=== PATIENT | male | born 1995 | race Caucasian/White ===

== ENCOUNTER 2024-06-15 16:34 | Emergency (ER) | payer SELFPAY ==
--- NOTE | ~2024-06-15 | XR_ITS ---
CLINICAL HISTORY: painful AP pelvis, Two views of the left hip. COMPARISON: None FINDINGS: Pelvic ring appears intact. Pelvic phleboliths present. Visualized lower lumbar spine is unremarkable. Visualized portions of the contralateral right hip appear intact. Left hip: Decreased left hip joint space with remodeling of the left femoral head and near [id number] apposition along the superior margin of the acetabulum. Small osteophytes present along the femoral head. 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 Visualized portions of the proximal left femur appear intact. IMPRESSION: 1. Moderate to advanced left hip degenerative changes. 2. Morphological changes of the left femoral head consistent with Cam type femoroacetabular impingement. This document has been electronically signed by: David Canales MD on 06/15/2024 18:09:05
[2024-06-15 16:59] VITALS: BP 125/79; PULSE 102; RESP 18; TEMP 36.7; O2SAT 97; BMI 21.3
== END 2024-06-15 20:23 | disposition left against medical advice (07) ==
LOC: HO.ED 20:14
PROVIDERS: Emergency Provider Emergency Medicine
DX: M25.552 Pain in left hip (principal)
CPT/HCPCS: 73502; 99281

== ENCOUNTER → 2024-06-15 17:15 | Outpatient (BNV) | payer SELFPAY | PROVIDERS: Visit Provider Radiology Diagnostic Radiology | DX: M16.12 Unilateral primary osteoarthritis, left hip (principal) | CPT/HCPCS: 73502 ==

== ENCOUNTER 2024-10-11 14:28 | Inpatient (IN) | payer OTHER, SELFPAY ==
--- NOTE | ~2024-10-11 | CT_ITS ---
CLINICAL HISTORY: septic PE --- Additional Notes or Special Instructions: Pt has appeared to recover from ATN, Glomerulonephritis, CT angiography chest with contrast. 3D Postprocessing. Comparison: None provided Findings: Mild cardiomegaly. Trace pericardial effusion. Unremarkable thoracic aorta and great vessels. No aneurysm. No pulmonary emboli to the proximal segmental level. More distal branches are not adequately assessed due to motion artifact. Bilateral solid and cavitary nodules likely septic emboli. Small mediastinal and right hilar lymph nodes, likely reactive. Small bilateral pleural effusions. Hepatosplenomegaly. Chronic appearing anterior wedging of T6 and T7. Anasarca. IMPRESSION: 1. Bilateral solid and cavitary nodules, likely septic emboli 2. Small bilateral pleural effusions 3. Mild cardiomegaly with trace pericardial effusion 4. No pulmonary emboli identified to the proximal segmental level, with more distal branches limited by motion artifact This document has been electronically signed by: Zuhair [facility] MD on 10/13/2024 01:32:05
--- NOTE | ~2024-10-11 | CT_ITS ---
CLINICAL HISTORY: L hip sepsis, abd pain distension hepatomegaly CT abdomen and pelvis with contrast Comparison: None provided Findings: Nodules and cavitary lesions in the visualized lungs concerning for septic emboli. Small bilateral pleural effusions. Trace pericardial effusion. Hepatomegaly measuring 23.3 cm in the craniocaudal dimension. Splenomegaly measuring 19.9 cm in the craniocaudal dimension. Inferior splenic infarct. Symmetric hypoenhancement of the kidneys. No hydronephrosis. Gallbladder, pancreas, and adrenal glands are within normal limits. No bowel obstruction, pneumoperitoneum, or pneumatosis. Abdominopelvic ascites. Anasarca. Erosive changes in the left femoral head with small joint effusion. Appearance is consistent with septic arthritis and osteomyelitis. There is posterior subluxation of the left femoral head. IMPRESSION: 1. Multiple pulmonary nodules and cavitary lesions concerning for septic emboli 2. Left hip septic arthritis and osteomyelitis with posterior subluxation of femoral head 3. Hepatomegaly and splenomegaly with inferior splenic infarct 4. Small bilateral pleural effusions and trace pericardial effusion 5. Abdominopelvic ascites and anasarca This document has been electronically signed by: Zuhair [facility] MD on 10/13/2024 01:21:54
--- NOTE | ~2024-10-11 | CT_ITS ---
CLINICAL HISTORY: sepsis, TV vegetation CT head without contrast Comparison: None provided Findings: Loss of rubio-white matter differentiation in the left frontal lobe concerning for infarct from septic emboli, given the history. No intracranial hemorrhage, midline shift or downward herniation. The visualized paranasal sinuses and mastoid air cells are normal. The orbits are within normal limits. No skull fracture. IMPRESSION: Loss of rubio-white matter differentiation in the left frontal lobe concerning for infarct from septic emboli, given the history. This document has been electronically signed by: Zuhair [facility] MD on 10/13/2024 01:17:18
--- NOTE | ~2024-10-11 | XR_ITS ---
CLINICAL HISTORY: weakness 1 view chest x-ray Comparison: None provided Findings: Few small patchy opacities in the peripheral right lung, possibly atelectasis or pneumonia. No large effusion or pneumothorax. Right IJ central venous catheter tip is in the right atrium. No acute fracture. IMPRESSION: Few small patchy opacities in the peripheral right lung, possibly atelectasis or pneumonia. This document has been electronically signed by: Zuhair [facility] MD on 10/11/2024 18:09:04
--- NOTE | ~2024-10-11 | IR_ITS ---
CLINICAL HISTORY: Comfort measures only and requiring medication administration PROCEDURES: 1. Real-time ultrasound-guided access into the left basilic vein after documentation of selected vessel patency, and permanent imaging storing in the patient record. 2. Placement of a 4 fr 42 cm, single lumen power PICC CLINICIANS: Tereso Tavarez NP MEDICATIONS: -Lidocaine 1% 5 mL SQ. -Antibiotics: None. Complications: None. Estimated blood loss: <5 ml Specimens: None. Contrast: None. Fluoroscopy time: 0.8 min Procedure note: The procedure, risks, benefits, and alternatives were carefully explained to the patient and written informed consent was obtained. The patient was placed supine on the fluoroscopy table. A timeout was performed. The left arm was prepped and draped in usual sterile fashion. Using ultrasound and fluoroscopic guidance, venous access was achieved into the basilic vein with a micropuncture set. A peel-away sheath was advanced over the wire. The 0.018 inch wire was advanced into the right atrium. A 4 fr, 42 cm, single lumen power PICC was advanced over the wire, with its tip in the the cavoatrial junction. The wire was removed. The catheter was tested and secured with a StatLock dressing. A permanent ultrasound image and chest fluoroscopic image was saved to PACS. The patient was stable after the procedure and was transferred to the floor. FINDINGS: 1. Patent left basilic vein 2. Placement of a 4 fr 42 cm, single lumen power PICC IR/IR cvc insert peripheral IMPRESSION: Placement of a 4 fr 42 cm, single lumen power PICC PLAN: -The catheter may be used immediately. This procedure was performed by Tereso Tavarez NP, and directly supervised by Idalia Styles MD. Electronically signed by: Abdirahman Styles MD 10/24/2024 05:51 PM EDT
--- NOTE | ~2024-10-11 | IR_ITS ---
CLINICAL HISTORY: Question of central line associated bloodstream infection PROCEDURES: Removal of right chest hemodialysis catheter. Clinician: Tereso Tavarez NP MEDICATIONS: -Lidocaine 1% 10 mL SQ. -Antibiotics: Not indicated -For additional details, please see nursing flowsheet. COMPLICATIONS: None. ESTIMATED PROCEDURAL BLOOD LOSS: <5 ml SPECIMENS: Catheter tip sent for culture. Additional blood draw performed from catheter. PROCEDURE NOTE: The procedure, risks, benefits, and alternatives were carefully explained to patient, and informed consent was obtained. The patient was placed supine . A timeout was performed. The right neck and chest was prepped and draped in usual sterile fashion. Local anesthesia was administered to the site with lidocaine. Using blunt dissection, the catheter cuff was freed and the catheter was removed. Manual pressure was held for 5 minutes and hemostasis was achieved. A sterile dressing was applied. There were no immediate complications and the patient tolerated the procedure well. FINDINGS: Right chest hemodialysis catheter intact. IR/IR cvc remov tunnel wo prt/landfill gas technician IMPRESSION: Successful removal of right chest tunneled hemodialysis catheter. PLAN: If replacement is desired, contact interventional radiology. This procedure was performed by Tereso Tavarez NP, and directly supervised by Leroy Duenas M.D.. Electronically signed by: Leroy Duenas MD 10/15/2024 09:09 AM EDT Workstation: [id number]
[2024-10-11 14:52] VITALS: BP 109/73; PULSE 141; PULSE 148; RESP 22; TEMP 36.8; O2SAT 97; BMI 24.3
[2024-10-11 15:39] VITALS: BP 109/73; PULSE 141; RESP 22; TEMP 36.8; O2SAT 97
--- NOTE | 2024-10-11 15:45 | ECG_ITS ---
Test Reason : EVAL Blood Pressure : */* mmHG Vent. Rate : 123 BPM Atrial Rate : 123 BPM P-R Int : 152 ms QRS Dur : 102 ms QT Int : 312 ms P-R-T Axes : 58 108 8 degrees QTcB Int : 446 ms Sinus tachycardia Rightward axis Borderline ECG No previous ECGs available Referred By: Finn Olsen Electronically Signed By: Jigar Clay
[2024-10-11 16:36] LABS: Hematocrit 23.5 % (42.0-52.0); Hemoglobin 7.6 g/dl (14.0-18.0); Mean Corpuscular HGB Conc 32.3 g/dl (31.0-36.0); Mean Corpuscular Hemoglobin 26.2 pg (27.0-33.0); Mean Corpuscular Volume 81.0 fL (80.0-98.0); NRBC Abs Auto 0.000 X10*3/uL (0.0-0.012); NRBC Pct Auto 0.0 /100WBC (0.0-0.2); Red Blood Count 2.90 X10*6/uL (4.60-5.80); White Blood Count 5.8 X10*3/uL (4.8-10.8)
--- NOTE | 2024-10-11 16:41 | ED_ITS ---
HPI - General Adult General Chief complaint: Psychiatric Symptoms Stated complaint: SEC 12 ?FAILURE TO THRIVE, REFUSING DIALYSIS Time Seen by Provider: 10/11/24 15:45 Source: patient, RN notes reviewed and old records reviewed Mode of arrival: EMS Limitations: no limitations History of Present Illness ED Provider: Raúl HPI narrative: 29-year-old male with past medical history significant for end-stage renal disease on dialysis who reports no previous past medical history up until 1 month ago when he was admitted at [facility] presenting for evaluation of ?I do not want dialysis. ? The patient was placed on a section 12 by Anastacia Boggs, nurse practitioner due to refusal of dialysis treatments, emaciation, not perform ADLs and suspected substance abuse EMS reported that the patient had expressed some passive suicidal ideation stating that he wanted to skipped dialysis until it kills him. At the time of my evaluation the patient denies all this He does state that he has not thrilled with continuing dialysis but is not suicidal. He reports he has not been to dialysis since last week The patient offers no complaints Denies any fevers, chills, chest pain, cough, shortness of breath, abdominal pain, nausea vomiting Related Data Home Medications ?Medication ?Instructions ?Recorded ?Confirmed acetaminophen 325 mg tablet 325 mg PO Q8H PRN Pain 10/11/24 cyclobenzaprine 10 mg tablet 10 mg PO BEDTIME PRN Musc le Spasm 10/11/24 10/11/24 gabapentin 300 mg capsule 300 mg PO BEDTIME PRN Pain 0 10/11/24 10/11/24 Allergies Allergy/AdvReac Type Severity Reaction Status Date / Time amoxicillin Allergy Unknown Verified 10/11/24 14:54 infliximab (From Remicade) Allergy Hives Verified 10/11/24 14:54 methotrexate Allergy Unknown Verified 10/11/24 14:54 Penicillins (PCN) Allergy Unknown Verified 10/11/24 14:54 Review of Systems 2 Constitutional: Constitutional: Denies chills, Denies fatigue and Denies fever(s) Eyes: Eyes: Denies blurry vision ENT: Denies vertigo, Denies dizziness and Denies dry mouth Cardiovascular: Cardiovascular: Denies chest pain and Denies dyspnea on exertion Respiratory: Respiratory: Denies cough and Denies dyspnea on exertion Gastrointestinal: Gastrointestinal: Denies abdominal pain, Denies nausea and Denies vomiting Musculoskeletal: Musculoskeletal: Denies back pain Integumentary/Breasts: Skin/Breast: Denies rash Neurologic: Denies vertigo and Denies dizziness Psychiatric: Psychiatric: Denies anxiety and Denies suicidal ideation Endocrine: Endocrine: Denies fatigue PMFSH Past Medical History Medical History Abscess of male pelvis Portal hypertension Cirrhosis of liver Splenomegaly TIMMY (acute kidney injury) Hyperkalemia GI bleed Thrombocytopenia History of intravenous drug abuse Tachycardia Hyponatremia Juvenile rheumatoid arthritis Hepatitis C antibody positive Pneumonia MSSA (methicillin susceptible Staphylococcus aureus) Methadone maintenance therapy patient Substance use disorder Effusion, left hip Septic pulmonary embolism Severe tricuspid regurgitation Tricuspid valve vegetation Social History Social History Unable to assess alcohol history related to: Refusing to respond Smoked in Last 30 Days: No Use of substances other than those prescribed or required for medical reasons: Refusing to respond Advance Directives: No Advance Directives Information Provided: Yes Do you have a plan to hurt others: No Plan Physical Exam ED Vital Signs: Vital Signs - 24 hr 10/11/24 14:52 10/11/24 15:39 Temperature 98.3 F 98.3 F Pulse Rate 141 H 141 H Respiratory Rate 22 H 22 H Blood Pressure 109/73 109/73 Pulse Oximetry 97 97 Oxygen Delivery Method Room Air Room Air BMI result Body Mass Index 24.3 Const General: no acute distress, alert and awake Nutritional Appearance: well nourished and cachectic Orientation/consciousness: patient oriented x3 HENMT Head: Yes normocephalic and Yes atraumatic Eyes Eyelids: Yes eyelids normal Conjunctivae: conjunctivae normal Sclerae: sclerae normal Corneas: corneas normal Pupils: Equal, round and reactive pupils present EOM: EOMs intact bilaterally Neck Neck: Yes full ROM Resp Effort & Inspection: normal respiratory effort, able to speak in complete sentences and not labored Cardio Rate: regular rate Rhythm: regular rhythm GI Palpation (GI): Soft to palpation, not firm, nontender, no guarding and not rigid Skin General skin exam: elasticity normal Neuro General: patient oriented x3 Cranial nerves: Yes CN's II-XII intact bilaterally, Yes Equal, round and reactive pupils present and Yes Bilaterally intact EOM present Cognition (Neuro): normal cognition Extrem Other: Moving all extremities well without any obvious deformities Psych Appearance: disheveled Speech and movement: No Slurred speech present or Slowed speech present (Psych) Affect: Indifferent affect present Attitude: cooperative Thought process: Normal thought process present Thought content: suicidality Insight: Limited insight present (Psych) Course Reevaluation(s) Reevaluation #1: Received a call from the lab, the patient has 18% neutrophils with toxic vacuolization, blood bodies. He is findings could be concerning for infection/sepsis. The patient was covered in stool on arrival. I have not yet found a source of infection. His chest x-ray shows questionable pneumonia, but the patient is not coughing, he is afebrile. I do not feel this is the source. It is possible with the patient has a line infection and his hemodialysis catheter and therefore we will treat with vancomycin and ceftriaxone. Time: 18:26 Reevaluation #2: I was able to get records from [facility]. The patient had an extremely complicated admission starting on 06/24/24 and discharged on 09/14/2024. He ultimately was undergoing IV drug abuse and had MSSA bacteremia, septic pulmonary embolism, left hip septic arthritis with the extension in the pelvis and surrounding soft tissue with intramuscular abscesses. 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 He did undergo a left hip washout with I and D on 06/24/2024. He completed 6 weeks of Ancef and then ultimately decline any further surgical intervention. The patient is adamant that he has not used IV drugs since his discharge. I asked him why he was not truthful on presentation and he did not have an answer. At this time, because of the patient being placed on a section 12, I do not feel that he is medically cleared for a care team evaluation, we will discuss with the hospitalist for further evaluation of sepsis. He was given broad-spectrum antibiotics, IV fluids Time: 18:51 Medications Administered Discontinued Medications Generic Name Dose Route Start Last Admin Trade Name Freq PRN Reason Stop Dose Admin Ceftriaxone Sodium 1 gm 10/11/24 18:22 10/11/24 20:28 Ceftriaxone Sodium 1 Gm Vial IVPUSH 10/11/24 18:23 1 gm ONCE ONE Administration Sodium Chloride 1,000 mls @ 999 mls/hr 10/11/24 18:30 10/11/24 21:25 Ns IV 10/11/24 19:30 999 mls/hr .Q1H1M SARAH Infusion Sodium Chloride 1,000 mls @ 999 mls/hr 10/11/24 18:30 10/11/24 21:25 Ns IV 10/11/24 19:30 999 mls/hr .Q1H1M SARAH Infusion Vancomycin HCl 1,000 mg/ 535 mls @ 267.5 mls/hr 10/11/24 19:00 10/11/24 20:28 Vancomycin HCl 750 mg/ Sodium IV 10/11/24 20:59 267.5 mls/hr Chloride ONCE ONE Administration Lactated Ringer's 1,000 mls @ 100 mls/hr 10/11/24 19:15 10/11/24 21:24 Lr IVCONT Infused .Q10H SARAH Infusion Morphine Sulfate 4 mg 10/11/24 18:23 10/11/24 19:16 Morphine Sulfate 4 Mg/Ml Cartridge IVPUSH 10/11/24 18:24 4 mg ONCE ONE Administration Protocol Ondansetron HCl 4 mg 10/11/24 18:23 10/11/24 19:16 Ondansetron Hcl 4 Mg/2 Ml Vial IVPUSH 10/11/24 18:24 4 mg ONCE ONE Administration Procedures Procedure Narrative Procedure Narrative: I performed a bedside limited transthoracic echo on this patient see report below otherwise I was not involved in the patient's care. I did endorse the findings to the covering inpatient hospitalist team. EMERGENCY ULTRASOUND INTERPRETATION-Limited Echocardiography [This study was ordered, performed, and interpreted by myself. The study reveals: Impression: NORMAL LV FUNCTION, positive RV dilation and dysfunction, moderate pericardial effusion no tamponade [Emergent Cardiac for Indication: Views Used: PLAX, PSSA, A4, SX, IVC Pericardial Effusion/Tamponade Findings: Moderate pericardial effusion, no tamponade RV Dilation (> LV diam in 4ch apical): Present, also visible tricuspid regurgitation and tricuspid vegetation Global LV Fxn: NORMAL IVC Dilation and Resp Variation: Dilated Performed by: MD Freddy Images were stored __ Ervin Hayes MD Medical Decision Making Medical Decision Making MDM Narrative: 29-year-old male presents for evaluation of a crisis evaluation. He denies suicidal ideation to me. He does admit that he is not throat with dialysis. I am concerned that he is unable to explain to me why he was on dialysis. He does report a recent admission to [facility] but denies any previous medical history. He denies substance abuse active or previous. Denies any history of hepatitis or HIV. He offers no complaints. We will attempt to get records from [facility] that will hopefully she had more light on the patient's presentation. I received a call from the lab with the patient has 18% bandemia and at the moment I have no clear source. He does also have dull bodies, toxic vacuolization. He denies any fevers, chills, cough, shortness of breath, abdominal pain, nausea vomiting. He does reports some mild diarrhea. Denies IV drug abuse. Differential Diagnosis Differential Diagnoses: The differential diagnosis associated with the presentation includes Hyperkalemia Renal failure Arrhythmia Dehydration Anemia Substance abuse Sepsis Admission/Observation Consideration of admission/observation: Escalation of care including admission/observation considered Lab Data MDM Lab Attestation statement: I reviewed the patient's lab results. The patient has no leukocytosis. He does have a significant anemia with a hemoglobin is 7.6 and a hematocrit of 23.5. Unclear chronicity as we have no previous labs. [place] [address]. He denies any black or bloody stool but declines a rectal examination adamantly. The chemistries the patient is noted to have a hyponatremia of 126. His BMI is elevated to 55 with a normal creatinine of 1.4. 10/11/24 16:30 10/11/24 16:30 Labs: Lab Results 10/11/24 10/11/24 Range/Units 16:30 16:58 WBC 5.8 (4.8-10.8) X10*3/uL RBC 2.90 L (4.60-5.80) X10*6/uL Hgb 7.6 L (14.0-18.0) g/dl Hct 23.5 L (42.0-52.0) % MCV 81.0 (80.0-98.0) fL MCH 26.2 L (27.0-33.0) pg MCHC 32.3 (31.0-36.0) g/dl RDW 19.3 H (11.0-16.0) % Plt Count 62 L (160-400) X10*3/uL MPV 11.1 (9.4-12.4) fL Immature Gran % (Auto) Cancelled Neut % (Auto) Cancelled Lymph % (Auto) Cancelled Glenn % (Auto) Cancelled Eos % (Auto) Cancelled Baso % (Auto) Cancelled Lymph # (Auto) Cancelled Glenn # (Auto) Cancelled Eos # (Auto) Cancelled Baso # (Auto) Cancelled Abs Immat Gran (auto) Cancelled Absolute Neuts (auto) Cancelled Absolute Nucleated RBC 0.000 (0.0-0.012) X10*3/uL Nucleated RBC % (auto) 0.0 (0.0-0.2) /100WBC Neutrophils % (Manual) 75 H (45-73) % Band Neutrophils % 18 H (3-5) % Lymphocytes % (Manual) 4 L (20-40) % Monocytes % (Manual) 2 (2-11) % Metamyelocytes % 1 % Abs Neuts (Manual) 5.4 (2.0-8.3) X10*3/uL Lymphocytes # (Manual) 0.2 L (1.2-4.9) X10*3/uL Monocytes # (Manual) 0.1 (0.1-1.2) X10*3/uL Metamyelocytes # 0.1 X10*3/uL Toxic Vacuolation PRESENT Dohle Bodies PRESENT Platelet Estimate DECREASED (NORMAL) Large Platelets PRESENT Plt Morphology Comment NOTED RBC Morphology NOTED Polychromasia 1+ (0-2) /OIF Tear Drop Cells 1+ (0-2) /OIF Ovalocytes 1+ (5-14) /OIF Tyson Cells 1+ (0-2) /OIF Sodium 126 L (135-145) mmol/L Potassium 4.0 (3.3-5.1) mmol/L Chloride 101 (96-108) mmol/L Carbon Dioxide 13 L (22-29) mmol/L Anion Gap 16 (12-20) BUN 55 H (9-16) mg/dL Creatinine 1.24 (0.5-1.4) mg/dL Estim Creat Clear Calc 85.8 Estimated GFR > 60 Random Glucose 95 (60-115) mg/dL Calcium 8.1 L (8.4-10.2) mg/dL Magnesium 1.4 L* (1.6-2.6) mg/dL Total Bilirubin 0.9 (0.0-1.0) mg/dL AST 38 H (5-37) U/L ALT 7 (0-40) U/L Alkaline Phosphatase 102 (39-117) U/L C-Reactive Protein 19.23 H (< or = 0.50) mg/dL Total Protein 6.5 (6.5-8.0) g/dL Albumin 2.8 L (3.5-5.0) g/dL TSH 0.87 (0.32-4.0) uIU/mL Free T4 1.00 (0.71-1.85) ng/dL Salicylates < 5.0 L (15-30) mg/dL Acetaminophen < 3 (<30) mcg/mL Discharge Plan Discharge Clinical Impression: Depression, Noncompliance, Anemia Sepsis Qualifiers: Sepsis type: sepsis due to unspecified organism Sepsis acute organ dysfunction status: unspecified Qualified Code(s): A41.9 - Sepsis, unspecified organism Patient Disposition: Admitted As Inpatient Interventions: [place]-Suicide Risk Severity Scale Last Done: 10/11/24 15:39 Admission Worksheet (ED) Last Done: 10/11/24 20:48 Discharge Date/Time: 10/11/24 21:33
[2024-10-11 16:50] LABS: Alanine Aminotransferase 7 U/L (0-40); Albumin Level 2.8 g/dL (3.5-5.0); Alkaline Phosphatase 102 U/L (39-117); Anion Gap 16 (12-20); Aspartate Amino Transferase 38 U/L (5-37); Blood Urea Nitrogen 55 mg/dL (9-16); Calcium 8.1 mg/dL (8.4-10.2); Carbon Dioxide 13 mmol/L (22-29); Chloride 101 mmol/L (96-108); Creatinine Clr Calc Pharmacy 85.8; Estimated Glomerular Filt Rate > 60; Potassium 4.0 mmol/L (3.3-5.1); Sodium 126 mmol/L (135-145); Total Protein 6.5 g/dL (6.5-8.0)
[2024-10-11 17:07] LABS: Platelet Count 62 X10*3/uL (160-400)
--- NOTE | 2024-10-11 17:20 | MHC.EDTECH ---
delay on EKG do to EKG machine being used. Nurse aware.
[2024-10-11 17:25] LABS: Acetaminophen LAB < 3 mcg/mL (<30); Salicylate < 5.0 mg/dL (15-30)
[2024-10-11 17:37] LABS: Neutrophils Percent Manual 75 % (45-73)
[2024-10-11 17:39] LABS: Band Neutrophils Percent 18 % (3-5); Lymphocytes Absolute Manual 0.2 X10*3/uL (1.2-4.9); Lymphocytes Percent Manual 4 % (20-40); Metamyelocytes Absolute 0.1 X10*3/uL; Metamyelocytes Percent 1 %; Monocytes Absolute Manual 0.1 X10*3/uL (0.1-1.2); Monocytes Percent Manual 2 % (2-11); Neutrophils Absolute Manual 5.4 X10*3/uL (2.0-8.3)
[2024-10-11 17:40] LABS: Ovalocytes 1+ (5-14) /OIF; Polychromasia 1+ (0-2) /OIF; RBC Morphology NOTED; Tear Drop Cells 1+ (0-2) /OIF
[2024-10-11 17:41] LABS: Burr Cells 1+ (0-2) /OIF; Large Platelet PRESENT
[2024-10-11 17:44] LABS: Dohle Bodies PRESENT; Toxic Vacuolation PRESENT
--- NOTE | 2024-10-11 17:48 | MHC.CARE ---
[facility] Clinician Kandy Rodrigues called and stated she evaluated patient and the disposition determined to be inpatient psychiatric treatment. Will send the assessment when finished.
--- NOTE | 2024-10-11 18:03 | MHC.EDTECH ---
Pt is refusing lab work. RN made awre of pt refusal
--- NOTE | 2024-10-11 19:19 | PM.IMHP ---
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 On arrival to the emergency department patient was denying suicidal ideations. Patient did not provide any medical history so records from [facility] were obtained regarding recent admission from June of 2024 through 09/14/2024 for the above multiple medical problems. Patient placed on section 12 with continuous observation. Patient presented covered in dried feces and dirt. PermCath in right upper chest is covered with a soiled dressing. Bedside echo was being performed so this credit underwriter was unable to look at the insertion site. Staff were attempting to get blood cultures but this has been very difficult due to patient's poor vascular access. Patient does have 1 IV in the left hand. Patient was started on vanco and ceftriaxone for antibiotics in the emergency department. Patient is also on lactated Ringer's 100 mL/hour after receiving fluid resuscitation per sepsis protocol. Bedside echo done by ED provider notes severe tricuspid valve regurgitation with a tricuspid valve vegetation any moderate pericardial effusion. There is also dilation of the right ventricle. There does not appear to be signs of tamponade. The liver is grossly enlarged. Patient would only provide for HPI that [facility] called 911 and had him transported here to [facility]. Again patient denies suicidal ideations. Patient states he is no longer able to ambulate and has absolutely no strength. Patient was dealing with septic left hip joint with osteomyelitis and underwent aspiration of effusion while at [facility] this past admission. Patient refused any surgical intervention at that time. Patient states he goes to dialysis maybe once a week but reported to the ED provider that he goes to dialysis on Wednesdays and Fridays. Patient can not recall when he last had dialysis. Sodium on admission 126, potassium 4.0, CO2 13, anion gap 16, creatinine 1.24, creatinine clearance 85.8 with a GFR greater than 60. Patient does make urine and is not anuric or oliguric. AST 38, ALT 7 alk-phos 102. Total bilirubin 0.9. Patient does not have leukocytosis but is anemic with an H and H of 7.6 and 23.5. Patient's platelets are 62,000. Patient has a evidence left shift with bandemia 18. This case was reviewed with hospitalist attending Dr. Jensen to ensure transfers not indicated based on patient's level of care. Patient is appropriate for admission at this time based on review. Patient is currently hemodynamically stable mildly encephalopathic and ED provider will attempt peripheral access for blood cultures. Review of Systems Review of Systems: Patient answered no to chest pain, shortness of breath at rest, abdominal pain. Patient did confirm that he is not able to walk and is very weak. Yes Unobtainable due to mental status [facility] Medical History Abscess of male pelvis Portal hypertension Cirrhosis of liver Splenomegaly TIMMY (acute kidney injury) Hyperkalemia GI bleed Thrombocytopenia History of intravenous drug abuse Tachycardia Hyponatremia Juvenile rheumatoid arthritis Hepatitis C antibody positive Pneumonia MSSA (methicillin susceptible Staphylococcus aureus) Methadone maintenance therapy patient Substance use disorder Effusion, left hip Septic pulmonary embolism Severe tricuspid regurgitation Tricuspid valve vegetation Cognitive capacity: Alert to self only Functional capacity: bed bound Social History Household Members: None and Unknown / Unable to assess Housing: Unknown / Unable to assess Unable to assess alcohol history related to: Refusing to respond Patient Tobacco Use Status: Current someday Tobacco user Tobacco use type: Cigarette e-Cigarette/Vaping Use: Currently Using Second Hand Smoke Exposure: No Ebola Risk: Travel/Contact With Anyone From Affected Area/s: No Has Patient Experienced Ebola Symptoms: No Meds Allergies Allergy/AdvReac Type Severity Reaction Status Date / Time amoxicillin Allergy Unknown Verified 10/11/24 14:54 infliximab (From Remicade) Allergy Hives Verified 10/11/24 14:54 methotrexate Allergy Unknown Verified 10/11/24 14:54 Penicillins (PCN) Allergy Unknown Verified 10/11/24 14:54 Active Medications: Current Medications Acetaminophen (Acetaminophen 325 Mg Tablet) 650 mg PO Q6H PRN PRN Reason: Pain, Mild 1-3,fever,headache Albuterol/Ipratropium (Albuterol/Iprat 2.5/0.5mg 3 Ml Ampul.Neb) 3 ml INHALE Q4H PRN PRN Reason: Shortness of Breath/Wheezing Calcium Carbonate (Calcium Carbonate 750 Mg Tab.Chew) 750 mg PO Q4H PRN PRN Reason: Heartburn Enoxaparin Sodium (Enoxaparin Sodium 40 Mg/0.4 Ml Syringe) 40 mg SUBCUT Q24H [facility] Sodium Chloride (Ns) 1,000 mls @ 999 mls/hr IV .Q1H1M [facility] Stop: 10/11/24 19:30 Last Admin: 10/11/24 19:17 Dose: 999 mls/hr Sodium Chloride (Ns) 1,000 mls @ 999 mls/hr IV .Q1H1M [facility] Stop: 10/11/24 19:30 Last Admin: 10/11/24 19:17 Dose: 999 mls/hr Vancomycin HCl 1,000 mg/Vancomycin HCl 750 mg/ Sodium Chloride 535 mls @ 267.5 mls/hr IV ONCE ONE Stop: 10/11/24 20:59 Last Admin: 10/11/24 19:17 Dose: 267.5 mls/hr Lactated Ringer's (Lr) 1,000 mls @ 100 mls/hr IVCONT .Q10H [facility] Magnesium Hydroxide (Milk Of Magnesia 30 Ml Oral.Susp) 30 ml PO DAILY PRN PRN Reason: Constipation Melatonin (Melatonin 3 Mg Tablet) 6 mg PO BEDTIME PRN PRN Reason: Insomnia Ondansetron HCl (Ondansetron Hcl 4 Mg/2 Ml Vial) 4 mg IVPUSH Q8H PRN PRN Reason: Nausea and Vomiting Sodium Chloride (0.9 % Sodium Chloride Flush 3 Ml Syringe) 3 ml IVFLUSH QSHIFT [facility] Home Medications ?Medication ?Instructions ?Recorded ?Confirmed ?Last Taken ?Type acetaminophen 325 mg tablet 325 mg PO Q8H PRN Pain 07/24/25 07/24/25 Unknown History cyclobenzaprine 10 mg tablet 10 mg PO BEDTIME PRN Muscle Spasm 10/11/24 10/11/24 Unknown History gabapentin 300 mg capsule 300 mg PO BEDTIME PRN Pain 10/11/24 10/11/24 Unknown History Physical Exam Vital Signs and Narrative: Vital Signs: Last Vital Signs Temp 98.3 F 10/11/24 15:39 Pulse 141 H 10/11/24 15:39 Resp 22 H 10/11/24 15:39 BP 109/73 10/11/24 15:39 Pulse Ox 97 10/11/24 15:39 O2 Del Method Room Air 10/11/24 15:39 BMI result Body Mass Index 24.3 Alert to self only, unable to give good history. Neuro: Patient unable to follow commands for neuro exam, hiccups noted EYES: PERRLA, sclerae nonicteric, conjunctiva pale ENT: hearing intact, mucosa moist, no goiter noted, no obvious lymphadenopathy Cardiac: S1 S2 RRR tachycardic, holistic murmur, no JVD, no edema in Lower ext Pulmonary: lungs diminished bilaterally Abdominal: BS hypoactive throughout, nontender, no guarding or rebound tenderness noted, hepatomegaly present MSK: strength 1/5 upper and lower extremities, muscle atrophy noted, flaccidity noted : no CVA tenderness no bladder distension Extremities: no edema in lower extremities, PT and DP pulses palpable +2 Psych: mood flat, judgement and insight poor Skin: Pale, Covered in dried feces and dirt, PermCath dressing soiled, unable to check insertion site as echo at the bedside was being performed, we will update note when patient is seen for review. Track kim noted on left arm, suspect active IV drug use Results Labs 10/11/24 16:30 10/11/24 16:30 Labs: Laboratory Results - last 24 hr 10/11/24 10/11/24 16:30 16:58 MCV 81.0 MCH 26.2 L MCHC 32.3 RDW 19.3 H Plt Count 62 L MPV 11.1 Immature Gran % (Auto) Cancelled Neut % (Auto) Cancelled Lymph % (Auto) Cancelled [place] % (Auto) Cancelled Eos % (Auto) Cancelled Baso % (Auto) Cancelled Lymph # (Auto) Cancelled [place] # (Auto) Cancelled Eos # (Auto) Cancelled Baso # (Auto) Cancelled Abs Immat Gran (auto) Cancelled Absolute Neuts (auto) Cancelled Absolute Nucleated RBC 0.000 Nucleated RBC % (auto) 0.0 Neutrophils % (Manual) 75 H Band Neutrophils % 18 H Lymphocytes % (Manual) 4 L Monocytes % (Manual) 2 Metamyelocytes % 1 Abs Neuts (Manual) 5.4 Lymphocytes # (Manual) 0.2 L Monocytes # (Manual) 0.1 Metamyelocytes # 0.1 Toxic Vacuolation PRESENT Dohle Bodies PRESENT Platelet Estimate DECREASED Large Platelets PRESENT Plt Morphology Comment NOTED RBC Morphology NOTED Polychromasia 1+ (0-2) Tear Drop Cells 1+ (0-2) Ovalocytes 1+ (5-14) Jones Cells 1+ (0-2) Anion Gap 16 Estim Creat Clear Calc 85.8 Estimated GFR > 60 Random Glucose 95 Calcium 8.1 L Total Bilirubin 0.9 AST 38 H ALT 7 Alkaline Phosphatase 102 Total Protein 6.5 Albumin 2.8 L Salicylates < 5.0 L Acetaminophen < 3 ECG Attestation: I personally reviewed and interpreted this ECG as follows: (Sinus tachycardia Rightward axis, Qtc 446) Prior ECG tracings: available for review Imaging Radiologist's Impressions: CXR IMPRESSION: Few small patchy opacities in the peripheral right lung, possibly atelectasis or pneumonia. CT ABD PELVIS and CTA pending Assessment and Plan (1) Sepsis: Qualifiers: Sepsis acute organ dysfunction status: unspecified Sepsis type: sepsis due to unspecified organism Qualified Code(s): A41.9 - Sepsis, unspecified organism Status: Acute Plan Patient is a 29-year-old male with significant past medical history to include recent hospitalization at [facility] with discharge 09/14/2024 after 2 months of hospital stay diagnosed with sepsis, pyogenic arthritis of left hip, hyponatremia, tachycardia, left hip joint effusion, bilateral cavitary pulmonary embolism, thrombocytopenia, acute hypoxic respiratory failure, multifocal pneumonia, GI bleed secondary to portal hypertenisve gastropathy, hepatitis-C untreated, 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 Patient being admitted for multiple medical problems. Please note discharge summary from [facility] dated 09/14/2024 is available in patient's medical record. Sepsis/ pneumonia/ possible infected PermCath (tunnelled) used for dialysis/ recent septic pulmonary embolism/ recent septic arthritis left hip/ tricuspid valve endocarditis with vegetation/ MSSA Vancomycin and ceftriaxone started in the ED, changed to Vanco and cefepime noting recent hospitalization, unable to do Zosyn due to allergy to penicillin BCX2 pending Wound culture obtained from insertion site of PermCath Active track kim left arm, suspect active IV drug use LA 1.4, afebrile CRP 19.23, was 9.8 on discharge 09/14/2024 from [facility] and ESR pending Sepsis protocol followed for Fluid Resuscitation ID consult ordered UA pending O2 as needed CT Chest and CT abd pelvis pending Bedside echo confirms tricuspid valve vegetation, official echo ordered Telemetry and continuous pulse oximetry Pneumonia Pt is on vanco and cefepime O2 prn DUo nebs prn Aspiration precautions ordered Speech therapy eval ordered, due to level of weakness patient is at risk for aspiration UTI UA positive, follow urine culture Pt on cefepime Bladder scan QS Recommend periwick Hyponatremia NA 126 0.9 NS initated, conservative rate Urine studies ordered, serum osmo Trend NA, next at 2300 NV checks ordered Endocarditis of tricuspid valve, vegetation and moderate to severe tricuspid regurgitation present via bedside echo in ED Official echo ordered Cardiology consulted Antibiotics initiated ID consultation Septic PE Secondary to TV Endocarditis recently diagnosed, was not discharged on AC CTA pending Pt cannot initiate AC if needed due to low platelet count Septic Arthritis of Left Hip (past admission [facility]) ABD/Pelvis CT pending Pt refused surgical intervention at [facility] Contributing to patient's overall decreased mobility and weakness Encephalopathy. toxic metabolic issues related to infection and positive toxicology scree CT of the head ordered Will check ammonia level Toxicology screen positive for fentanyl, opiods, methadone, cocaine CKD on Dialysis/ possible infected PermCath/ recent TIMMY secondary to ATN Nephrology consulted Report of dialysis M,W,F - pt stated he stopped going to [place], unknown when last tx was Renal function stable UA positive for UTI, negative for proteinuria, on cefepime BC X2 pending, concern perm cath may be infected, culture ordered from insertion site Perm Cath Care ordered - tunneled catheter, cannot be removed at bedside if needed Avoid nephrotoxic medications Avoid hypotension Strict I's and O's Q shift Anemia secondary to end-stage renal disease H/H 7.6 23.5, no current indication for transfusion Stool for occult Epogen per Nephrology Iron panel and B12 ordered Recent multiple transfusions at [facility] for portal hypertensive gastropathy Protonix IV BID Thrombocytopenia Likely secondary to liver cirrhosis Splenomegaly noted 62K, hold Lovenox No evidence of spontaneous bleeding Hepatitis-C with liver cirrhosis/ portal hypertension Patient did not complete treatment in the past Will check RNA levels Follow CMP Substance Use Disorder Methadone 60 mgs TID COWS ordered noting positive Toxicology screen opiods, fentanyl, cocaine Addictions consulted Suicide ideation Patient currently on section 12 can not leave AMA Psychiatric consult ordered Continuous observation ordered DVT prophylaxis: Contraindicated due to low platelet count of 62,000 PPI prophylaxis noting sepsis diagnosis: Protonix 40 IV b.i.d. Med rec completed Full Code status Quality Stroke Does the patient have a stroke diagnosis?: No Reason for No Anti-thrombotic by Day Two: Contraindicated (low platelet count ) VTE Prior VTE?: No VTE Risk Level:: Medical - moderate - high VTE Device Contraindication: N/A - Device Ordered VTE Drug Contraindication: N/A - Med Ordered
--- NOTE | 2024-10-11 19:28 | PC.NURSE ---
this RN assume dcare of pt, medicated per MAY, L forearm IV infiltrated with fluid administration. Asked Danilo SONNY for assistance with Ultra sound guided IV. awaiting new IV access.
--- NOTE | 2024-10-11 19:35 | PC.NURSE ---
unable to administer antibiotics due to infiltration of IV line, hospitalist at bedside.
--- NOTE | 2024-10-11 20:18 | PC.NURSE ---
yo rn at bedside attempting us guided iv
[2024-10-11] MEDS: vancomycin HCL 1,000 MG, vancomycin HCL 750 MG in 0.9 % Sodium Chloride 500 ML 267.5 MG IV (20:28)
[2024-10-11] MEDS: Lactated Ringers 1,000 ML 100 ML IVCONT (20:29)
--- NOTE | 2024-10-11 20:31 | PC.NURSE ---
20g us guided iv placed in right upper arm at this time. pt medciated per may.
--- NOTE | 2024-10-11 20:37 | PHA.MEDREC ---
Addendum entered by Koki North RPh 10/11/24 20:46: MED REC REVIEWED BY [facility] Original Note: Pharmacy Consult ? Medication Reconciliation Pharmacy has completed the medication reconciliation. Spoke with pt and he confirmed he is only taking Acetaminophen 325mg 1 tab prn for pain, Cyclobenzaprine 10mg 1 tab at bedtime and Gabapentin 300mg tabs 1 at bedtime as needed.
--- NOTE | 2024-10-11 21:01 | PC.NURSE ---
attempted to place tele leads on pt, pt refusing at this time, larisas MANAGER GAMES aware
[2024-10-11 21:03] LABS: Magnesium 1.4 mg/dL (1.6-2.6)
[2024-10-11 21:14] LABS: Free T4 (Free Thyroxine) 1.00 ng/dL (0.71-1.85); Thyroid Stimulating Hormone 0.87 uIU/mL (0.32-4.0)
[2024-10-11 21:14] LABS: Cannabinoid Screen Urine Not Detected (Not Detect)
[2024-10-11 21:19] LABS: Appearance Urine Cloudy; Glucose Urine UA Negative (Negative); PH 5.0 (5.0-9.0); Specific Gravity - Urine 1.010 (1.005-1.025); UMIC TRIGGER UACC YES
[2024-10-11 21:28] LABS: UACC Culture Trigger YES
[2024-10-11 22:15] VITALS: BP 94/52; PULSE 115; RESP 18; TEMP 36.9; O2SAT 95
[2024-10-11 22:16] VITALS: BMI 23.6
[2024-10-11] MEDS: Albumin Human 25 % 100 ML 133.33 ML IV ×2 (22:50→23:49)
[2024-10-12] VITALS (9 sets, daily range): BP systolic 90–101; BP diastolic 53–67; PULSE 84–116; RESP 16–20; TEMP 35.5–38.6; O2SAT 96–100
[2024-10-12] MEDS: Magnesium Sulfate/H2O 2 GM/50 ML PIGGYBACK IV (00:23)
[2024-10-12] MEDS: 0.9 % Sodium Chloride Flush 3 ML SYRINGE IVFLUSH ×4 (01:52→21:35)
[2024-10-12] MEDS: cefEPime HCl/D5W 2 GM/50 ML PIGGYBACK IV ×4 (01:52→21:25)
--- NOTE | 2024-10-12 03:54 | PC.NURSE ---
Patient arrived to unit initially refusing all care but let staff clean his skin and place him on telemetry. He is ill appearing, pale, sweaty ,and unkempt. He has track kim left arm. His skin is brown and sloughing/shedding spread over body. RN changed his permacath dressing that was very soiled and full of dirt/possible feces, high probability of infection. He is vocalizing pain with any movement and also with facecloths on skin. Old healed scar left hip. Buttocks is red but blanchable, allevyn pad placed on right buttock. He is tachycardic with soft blood pressures and had a temp of 100.5. He is refusing blood draws and refused CT scans. Patient received tylenol for temp and RN administered albumin, magnesium, cefepime, and he is recieving IV fluids. Patient is making urine and RN placed a male purewick for comfort. Urine is pink tinged. Sitter at bedside d/t SI precautions. No issues swallowing. All safety measures in place.
--- NOTE | 2024-10-12 07:00 | CA_ITS ---
Transthoracic Echocardiogram Patient (Last, First, Middle): Viktor Mcgrath, Gender: Male Date of : 1995 Age: 29 Procedure Date: 10/12/2024 Procedure Type: Transthoracic Echocardiogram [place] [facility] [place]: 172.72 cm Weight: 70.31 kg BSA: 1.83 m2 Heart Rate: 84 bpm BP: 100 / 60 mmHg Foreclosure Specialist: CAPRI Referring MD: Shaylee Antonio [employer]- Symptoms: Endocarditis tricuspid valve, pericardial effusion Study Quality: Adequate ECG Rhythm: Sinus Conclusions: - Normal left ventricular size, thickness, systolic function, and wall motion. The visually estimated ejection fraction is between 55-60%. Diastolic function is normal for age. - Moderately increased right ventricular cavity size. There is normal right ventricular systolic function. - 1 cm x 0.7 cm vegetation aortic valve (right coronary cusp). Cannot rule out aortic root abscess. - Multiple vegetations on tricuspid valve with destruction of the valve architecture. Wide open severe tricuspid regurgitation. Findings Left Ventricle Normal left ventricular size, thickness, systolic function, and wall motion. The visually estimated ejection fraction is between 55-60%. Diastolic function is normal for age. Right Ventricle Moderately increased right ventricular cavity size. There is normal right ventricular systolic function. Atria The left atrium is normal in size. The right atrium is mildly dilated. Aortic Valve There is no aortic valve stenosis. There is no aortic valve regurgitation. 1 cm x 0.7 cm vegetation aortic valve (right coronary cusp). Cannot rule out aortic root abscess. Mitral Valve The mitral valve appears normal. There is no mitral valve regurgitation. There is no mitral valve stenosis. Pulmonic Valve The pulmonic valve is normal. There is trace pulmonic valve regurgitation. Tricuspid Valve The right ventricular systolic pressure is 25 mmHg. Mildly elevated right atrial pressure. There is no evidence of pulmonary hypertension. Multiple vegetations on tricuspid valve with destruction of the valve architecture. Wide open severe tricuspid regurgitation. Great Vessels All visible segments of the aorta are normal in size. The visualized portions of the pulmonary artery and branches are normal. Venous The inferior vena cava is dilated and collapses greater than 50% with inspiration. Pericardium/Pleural There is a small pericardial effusion. Prior Study Comparison No prior study available for comparison. Measurements 2D Linear Measurements IVSd: 1.10 0.6-0.9/0.6-1.0 cm LVIDd: 4.68 3.9-5.3/4.2-5.9 cm LVIDd Index: 2.56 2.4-3.2/2.2-3.1 cm/m2 LVIDs: 3.27 2.0-3.6 cm LVPWd: 0.96 0.7-1.1 cm LA Diam: 3.70 2.7-3.8/3.0-4.0 cm LAIDs Index: 2.02 1.5-2.3 cm/m2 LV Mass: 211.83 67-162/88-224 g LV Mass Index: 115.75 43-95/49-115 g/m2 LVOT Diam: 2.10 3.0+(-)1.3 cm 2D Systolic Function EF 4C: 49.00 >55% EF 2C: 54.80 >55% EF BiP: 51.90 >55% Mitral Valve MV Pk E: 0.73 MV PK A: 0.61 MV Decel Time: 156.00 E/A: 1.20 E'Lateral: 13.30 E'Medial: 9.03 E/E' Med: 8.10 E/E' Lat: 5.50 PHT: 46.00 MVA PHT: 4.78 Decel [place]: 4.70 Aortic Valve AoV Pk Zachery: 1.23 AoV Mn Zachery: 0.85 AoV VTI: 0.23 AoV Pk Grad: 6.00 Aov Mn Grad: 3.00 YAMILET Cont.VTI: 2.92 LVOT LVOT Pk Zachery: 0.95 LVOT Mn Zachery: 0.72 LVOT VTI: 0.19 LVOT Pk Grad: 4.00 LVOT Mn Grad: 2.00 LVOT Diam: 2.10 LVOT Area: 3.46 Diastolic Function MV Pk E: 0.73 MV Pk A: 0.61 E/A: 1.20 E'Medial: 9.03 E/E' Med: 8.10 E' Laterial: 13.30 E/E' Lat: 5.50 Right Ventricle TAPSE (mm): 26.70 TVS' Zachery: 18.20 Tricuspid Valve TR Pk Zachery: 2.07 TR Pk Grad: 17.00 RA Press: 8.00 RVSP: 25.00 Great Vessels Aorta Sinus of Valsalva: 3.30 2.0-3.5 cm Ao Asc: 2.90 2.1-3.4 cm Ao Arch: 2.20 Pulmonary Valve PV Pk Zachery: 0.86 Peak PV Grad: 3.00 Updated in Other Vendor System with Status of Final Jigar Clay MD electronically signed on 10/12/2024 12:19:28 PM with status of Final
--- NOTE | 2024-10-12 07:42 | HE.PHANOTE ---
Re Nick Patient was recently on Dialysis post-TIMMY at [facility]. Nephrology will assess him today. Current renal function appears good enough for 1g q12h of Vancomycin, will get a random before next dose would be do to make sure he is clearing the loading dose and proceed accordingly depending on dialysis orders.
--- NOTE | 2024-10-12 08:22 | PC.NURSE ---
urinary bladder scanned for 426 ml , urinated for 400 ml tea color urine
--- NOTE | 2024-10-12 08:30 | P.CONNP_ITS ---
History of Present Illness Reason for Consult Consult date: 10/12/24 Chief Complaint Chief complaint: SI History of Present Illness Narrative: 29 y/o male with wubstance use disorder, IVDU, untreated hepatitis C, juvenile rheumatoid arthritis, anxiety. 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 He states he has not been to dialysis in a few weeks. Presented 10/11 from ambulance from home after [facility] called 911 and stated patient was suicidal, placed on section 12 with continuous observation. He arrived covered in dry feces and dirt, and his permcath in right upper chest was soiled. He was admitted for mild encephalopathy, peripheral blood cultures collected. No previous lab history available. 10/11 labs: creatinine 1.24, GFR>60 sodium 126, urine osm 327 and urine sodium <20 potassium 4.0 serum bicarb 13, AG 16, lactic acid 1.4 CRP elevated at 19 albumin 2.8, bilirubin 0.9, AST/ALT 38 and 7, liver grossly enlarged on bedside imaging per hospitalist notes. urine tox positive for opiates, methadone, fentanyl, cocaine Patient at bedside awake and alert, slightly lethargic. States he lives with his mother, has not been to dialysis for a few weeks but he is not clear when he last went, where it is or which doctor he sees. He denies pain, denies breathing difficulty, denies urinary symptoms. States he feels fine and is peeing normally. States just weak and cannot walk. States prior to prolonged hospitalization at [facility] only medical history was juvenile arthritis. Review of Systems Constitutional: Reports weakness Cardiovascular: Denies chest pain, Denies leg edema, Denies lightheadedness, Denies dyspnea and Denies orthopnea Respiratory: Denies cough and Denies dyspnea Gastrointestinal: Denies abdominal pain, Denies constipation, Denies diarrhea, Denies nausea and Denies vomiting Genitourinary: Denies hematuria, Denies oliguria, Denies difficulty urinating, Denies dysuria and Denies flank pain Musculoskeletal: Reports muscle weakness Skin/Breast: Denies rash Reports weakness PMFSH Past Medical History Medical History Abscess of male pelvis Portal hypertension Cirrhosis of liver Splenomegaly TIMMY (acute kidney injury) Hyperkalemia GI bleed Thrombocytopenia History of intravenous drug abuse Tachycardia Hyponatremia Juvenile rheumatoid arthritis Hepatitis C antibody positive Pneumonia MSSA (methicillin susceptible Staphylococcus aureus) Methadone maintenance therapy patient Substance use disorder Effusion, left hip Septic pulmonary embolism Severe tricuspid regurgitation Tricuspid valve vegetation Social History Social History Household Members: None and Unknown / Unable to assess Housing: Unknown / Unable to assess Unable to assess alcohol history related to: Refusing to respond Patient Tobacco Use Status: Current someday Tobacco user Tobacco use type: Cigarette Smoked in Last 30 Days: Yes e-Cigarette/Vaping Use: Currently Using Patient Interested in Nicotine Replacement: Yes Patient Given Instructions on How to Stop Smoking: Yes Date Education Initiated: 10/11/24 Second Hand Smoke Exposure: No Use of substances other than those prescribed or required for medical reasons: Refusing to respond Currently Displaying Signs/Symptoms of Drug Intoxication Withdrawal: No Have you been hit, kicked, punched, or otherwise hurt by someone within the past year? If so, by whom?: No Do you feel safe in your current relationship?: No Current Relationship Is there a partner from a previous relationship who is making you feel unsafe now?: No Are you made to feel afraid or neglected: No Advance Directives: No Advance Directives Information Provided: Yes Do you have a plan to hurt others: No Plan Recently lost weight without trying: Unsure Eating poorly because of decreased appetite: Yes Poor oral hygiene: Yes Travel History Ebola Risk: Travel/Contact With Anyone From Affected Area/s: No Has Patient Experienced Ebola Symptoms: No Meds Allergies Allergy/AdvReac Type Severity Reaction Status Date / Time amoxicillin Allergy Unknown Verified 10/11/24 14:54 infliximab (From Remicade) Allergy Hives Verified 10/11/24 14:54 methotrexate Allergy Unknown Verified 10/11/24 14:54 Penicillins (PCN) Allergy Unknown Verified 10/11/24 14:54 Active Medications: Current Medications Acetaminophen (Acetaminophen 325 Mg Tablet) 650 mg PO Q6H PRN PRN Reason: Pain, Mild 1-3,fever,headache Last Admin: 10/12/24 02:08 Dose: 650 mg Albuterol/Ipratropium (Albuterol/Iprat 2.5/0.5mg 3 Ml Ampul.Neb) 3 ml INHALE Q4H PRN PRN Reason: Shortness of Breath/Wheezing Calcium Carbonate (Calcium Carbonate 750 Mg Tab.Chew) 750 mg PO Q4H PRN PRN Reason: Heartburn Sodium Chloride (Ns) 1,000 mls @ 100 mls/hr IVCONT .Q10H [facility] Last Admin: 10/12/24 00:24 Dose: 100 mls/hr Cefepime HCl (Maxipime) 2 gm in 50 mls @ 100 mls/hr IV Q8H [facility] Last Infusion: 10/12/24 06:37 Dose: Infused Vancomycin HCl 500 mg/ Sodium (Chloride) 110 mls @ 110 mls/hr IV ONCE ONE Stop: 10/12/24 07:59 Magnesium Hydroxide (Milk Of Magnesia 30 Ml Oral.Susp) 30 ml PO DAILY PRN PRN Reason: Constipation Melatonin (Melatonin 3 Mg Tablet) 6 mg PO BEDTIME PRN PRN Reason: Insomnia Ondansetron HCl (Ondansetron Hcl 4 Mg/2 Ml Vial) 4 mg IVPUSH Q8H PRN PRN Reason: Nausea and Vomiting Pantoprazole Sodium (Pantoprazole Sodium 40 Mg/10 Ml Vial) 40 mg IVPUSH BID@0630,1630 [facility] Last Admin: 10/12/24 05:41 Dose: 40 mg Pharmacy Consult (Consult Rx Vancomycin Dosing) 1 each MISCELLANE DAILY PRN PRN Reason: Consult order Sodium Chloride (0.9 % Sodium Chloride Flush 3 Ml Syringe) 3 ml IVFLUSH QSHIFT [facility] Last Admin: 10/12/24 01:52 Dose: 3 ml Home Medications ?Medication ?Instructions ?Recorded ?Confirmed ?Last Taken ?Type acetaminophen 325 mg tablet 325 mg PO Q8H PRN Pain 10/11/24 Unknown History cyclobenzaprine 10 mg tablet 10 mg PO BEDTIME PRN Musc le Spasm 10/11/24 10/11/24 Unknown History gabapentin 300 mg capsule 300 mg PO BEDTIME PRN Pain 0 10/11/24 10/11/24 Unknown History Physical Exam Vital Signs: Last Vital Signs Temp 98.1 F 10/12/24 07:10 Pulse 94 10/12/24 07:10 Resp 20 10/12/24 07:10 BP 98/58 L 10/12/24 07:10 Pulse Ox 98 10/12/24 07:10 O2 Del Method Room Air 10/12/24 07:10 BMI result Body Mass Index 23.6 Const General: no acute distress, alert and awake Resp Effort & Inspection: normal respiratory effort and able to speak in complete sentences Auscultation: clear to auscultation bilaterally Cardio Rate: regular rate Rhythm: regular rhythm Heart sounds: S1 normal heart sound present and S2 normal heart sound present GI Inspection: Yes distended Palpation (GI): Soft to palpation and nontender General: Yes no CVA tenderness Back/Spine/Pelvis Back: no CVA tenderness Skin Rashes: no rashes Extrem General: No edema Results Lab Results 10/11/24 16:30 10/11/24 16:30 Lab results: Chemistry 10/11/24 16:30 Sodium 126 L Potassium 4.0 Carbon Dioxide 13 L BUN 55 H Creatinine 1.24 Calcium 8.1 L Hematology 10/11/24 16:30 WBC 5.8 Hgb 7.6 L Plt Count 62 L Urinalysis 10/11/24 20:57 Urine Color [place] A Urine Appearance Cloudy Urine pH 5.0 Ur Specific [place] 1.010 Urine Protein See Note Urine Glucose (UA) Negative Urine Ketones Negative Urine Blood Large (3+) H Urine Nitrite Negative Ur Leukocyte Esterase Large (3+) H Urine RBC >20 H Urine WBC >50 H Ur Squamous Epith Cells 0-2 Hyaline Casts 0-2 Urine Studies 10/11/24 20:57 Urine Osmolality 327 L Assessment and Plan (1) Acute renal failure on dialysis: Status: Acute (2) Hyponatremia: Status: Acute Procedures Date of Service Date of Service: 10/12/24
--- NOTE | 2024-10-12 08:38 | PC.NURSE ---
blood sample needed for blood work, phlebotomy tried , no results , finger stick offered to get the blood sample , pt refused. Pt refusing blood work at this time . Provider Taya Calle notified
--- NOTE | 2024-10-12 09:13 | PC.NURSE ---
pt refusing blood work , Hospitalist Taya is aware , pt was educated on the purposes of the blood work , pt is refusing . Normal Saline IV fluids stopped as per MD instructions.
--- NOTE | 2024-10-12 09:24 | MHC.CM.PN ---
EMR REVIEWED, PT W/SEVERAL MEDICAL ISSUES AND ON SEC 12 FROM [facility] FOR SI, CM MET W/PT WHO APPEARS DEPRESSED W/FLAT AFFECT AND ANTIC UNRELIABLE HISTORIAN, PT REPORTS HE LIVES AT [facility] [address] [facility] W/HIS LEA MURRAY (DOES NOT RECALL HER PHONE NUMBER), PT REPORTS [facility] ASSISTS PT W/NEEDS AND HAS NO HOME SERVICES HOWEVER CM WILL CONFIRM W/[facility]D. PT DENIES HAVING OR RECEIVING ASSISTANCE W/PCP, PT DENIES HAVING HEALTH INSURANCE HOWEVER PER H&P PT WAS AT [facility] FOR 2MOS AND HAD OUTPT HD, PT HAVE HD CATH, PT DOES NOT RECALL WHERE HE HAS HD. PT CURRENTLY REFUSING LABS, TX AND LAUGHS WHEN MENTIONED IPLOC.
--- NOTE | 2024-10-12 10:19 | HE.PHANOTE ---
Re MEthadone Received verification from nursing. Pt receives 95mg in the morning and 95mg at night from [facility]. Last confirmed dose was 09/26/24
--- NOTE | 2024-10-12 10:33 | PC.NURSE ---
Addendum entered by Keara Cool RN 10/12/24 13:22: 2nd attempt to met with pt; Pt is still difficult to wake but briefly opens his eyes before closing them and placing blanket over his face. Due to medical complexity of pt presentation TW decided to allow pt to further rest and will reattempt to meet with pt later this afternoon to offer support and resources regarding substance use. Original Note: TW met with pt in 459-1 per ACS consult for substance use. On approach, pt is sleeping with a blanket over eyes. He is difficult to arouse but does not appear to be in any acute distress. Respirations are even and unlabored. Pt was able to open eye after calling his names several times. When asked how he is feeling he reports, like crap . Pt has visible sweat beads on forehead and also endorses feeling achy Pts speech is difficult to understand and very mumbled. When asked if he takes methadone he states yes but is unable to recall [facility] clinic, dose, or last time he received methadone. Hed is only able to report that he goes to [place] TW contacted [facility] in [place]. CJ White at [facility] reports pt was last dosed 95mg of methadone on 09/26/24 @ 10:19am. Cindy also reports the pt is ordered 190mg of methadone daily in a split dose. He receives 95mg in the morning and 95mg at night . Methadone verification form competed and delivered in hand to pharmacy and floor RN made aware of its completion. TW will reattempt to meet with pt this afternoon as he appeared too sedated at this time and unable to answer questions to further assess. TW and ACS team available for further concerns or questions if needed
--- NOTE | 2024-10-12 11:07 | MHC.SLORD ---
Speech Language Pathology Order Status: Per attending hospitalist, bedside swallow eval no longer needed, thus order to be cx'ed. Patient was started on an unmodified diet. Please re-refer if needed.
--- NOTE | 2024-10-12 11:45 | P.PNIM_ITS ---
Subjective Subjective Date of Service: 10/12/24 Interval History: Seen and examined this morning Follow-up for SI, sepsis, bacteremia Patient awake, alert, denies SI at this time. Refusing labs, refusing imaging. Uncooperative with care says he has no symptoms of anything at this time Constitutional Constitutional: Denies chills and Denies fever(s) Physical Exam 2 Vital Signs: Vital Signs: Last Vital Signs Temp 98.1 F 10/12/24 07:10 Pulse 94 10/12/24 07:10 Resp 20 10/12/24 07:10 BP 98/58 L 10/12/24 07:10 Pulse Ox 98 10/12/24 07:10 O2 Del Method Room Air 10/12/24 07:10 BMI result Body Mass Index 23.6 Const: Other: Thin, chronically General: alert and awake Nutritional Appearance: thin O rientation/consciousness: patient oriented x3 Resp: Effort & Inspection: normal respiratory effort, able to speak in complete sentences, no respiratory distress and no use of accessory muscles Cardio: Rate: regular rate GI: Inspection: No distended Palpation (GI): Soft to palpation Skin: Other: Dialysis catheter right chest wall Neuro: Other: limited exam due to lack of pt cooperation General: patient oriented x3 Objective Data Active Medications Acetaminophen (Acetaminophen 325 Mg Tablet) 650 mg PO Q6H PRN PRN Reason: Pain, Mild 1-3,fever,headache Last Admin: 10/12/24 02:08 Dose: 650 mg Documented By: ROSA ELENA Albuterol/Ipratropium (Albuterol/Iprat 2.5/0.5mg 3 Ml Ampul.Neb) 3 ml INHALE Q4H PRN PRN Reason: Shortness of Breath/Wheezing Calcium Carbonate (Calcium Carbonate 750 Mg Tab.Chew) 750 mg PO Q4H PRN PRN Reason: Heartburn Cefepime HCl (Maxipime) 2 gm in 50 mls @ 100 mls/hr IV Q8H [facility] Last Infusion: 10/12/24 06:37 Dose: Infused Documented By: ROSA ELENA Vancomycin HCl 500 mg/ Sodium (Chloride) 110 mls @ 110 mls/hr IV ONCE ONE Stop: 10/12/24 07:59 Magnesium Hydroxide (Milk Of Magnesia 30 Ml Oral.Susp) 30 ml PO DAILY PRN PRN Reason: Constipation Melatonin (Melatonin 3 Mg Tablet) 6 mg PO BEDTIME PRN PRN Reason: Insomnia Ondansetron HCl (Ondansetron Hcl 4 Mg/2 Ml Vial) 4 mg IVPUSH Q8H PRN PRN Reason: Nausea and Vomiting Pantoprazole Sodium (Pantoprazole Sodium 40 Mg/10 Ml Vial) 40 mg IVPUSH BID@0630,1630 [facility] Last Admin: 10/12/24 05:41 Dose: 40 mg Documented By: ROSA ELENA Pharmacy Consult (Consult Rx Vancomycin Dosing) 1 each MISCELLANE DAILY PRN PRN Reason: Consult order Sodium Chloride (0.9 % Sodium Chloride Flush 3 Ml Syringe) 3 ml IVFLUSH QSHIFT [facility] Last Admin: 10/12/24 01:52 Dose: 3 ml Documented By: ROSA ELENA Labs 10/11/24 16:30 10/11/24 16:30 Labs: Laboratory Results - last 24 hr 10/11/24 10/11/24 10/11/24 16:30 16:58 20:23 MCV 81.0 MCH 26.2 L MCHC 32.3 RDW 19.3 H Plt Count 62 L MPV 11.1 Immature Gran % (Auto) Cancelled Neut % (Auto) Cancelled Lymph % (Auto) Cancelled [place] % (Auto) Cancelled Eos % (Auto) Cancelled Baso % (Auto) Cancelled Lymph # (Auto) Cancelled [place] # (Auto) Cancelled Eos # (Auto) Cancelled Baso # (Auto) Cancelled Abs Immat Gran (auto) Cancelled Absolute Neuts (auto) Cancelled Absolute Nucleated RBC 0.000 Nucleated RBC % (auto) 0.0 Neutrophils % (Manual) 75 H Band Neutrophils % 18 H Lymphocytes % (Manual) 4 L Monocytes % (Manual) 2 Metamyelocytes % 1 Abs Neuts (Manual) 5.4 Lymphocytes # (Manual) 0.2 L Monocytes # (Manual) 0.1 Metamyelocytes # 0.1 Toxic Vacuolation PRESENT [place]ohle Bodies PRESENT Platelet Estimate DECREASED Large Platelets PRESENT Plt Morphology Comment NOTED RBC Morphology NOTED Polychromasia 1+ (0-2) Tear Drop Cells 1+ (0-2) Ovalocytes 1+ (5-14) [place] Cells 1+ (0-2) Anion Gap 16 Estim Creat Clear Calc 85.8 Estimated GFR > 60 Random Glucose 95 Lactic Acid 1.4 Calcium 8.1 L Magnesium 1.4 L* Total Bilirubin 0.9 AST 38 H ALT 7 Alkaline Phosphatase 102 C-Reactive Protein 19.23 H Total Protein 6.5 Albumin 2.8 L TSH 0.87 Free T4 1.00 Urine Color Urine Appearance Urine pH Ur Specific [place] Urine Protein Urine Glucose (UA) Urine Ketones Urine Blood Urine Nitrite Ur Leukocyte Esterase Urine RBC Urine WBC Ur Squamous Epith Cells Urine Bacteria Hyaline Casts Urine Osmolality Ur Random Sodium Salicylates < 5.0 L Urine Opiates Screen Ur Buprenorphine Scrn Ur Oxycodone Screen Urine Methadone Screen Urine Fentanyl Screen Acetaminophen < 3 Ur Barbiturates Screen Ur Phencyclidine Scrn Ur Amphetamines Screen U Benzodiazepines Scrn Urine Cocaine Screen U Marijuana (THC) Screen Blood Type Antibody Screen 10/11/24 10/11/24 20:27 20:57 MCV MCH MCHC RDW Plt Count MPV Immature Gran % (Auto) Neut % (Auto) Lymph % (Auto) [place] % (Auto) Eos % (Auto) Baso % (Auto) Lymph # (Auto) [place] # (Auto) Eos # (Auto) Baso # (Auto) Abs Immat Gran (auto) Absolute Neuts (auto) Absolute Nucleated RBC Nucleated RBC % (auto) Neutrophils % (Manual) Band Neutrophils % Lymphocytes % (Manual) Monocytes % (Manual) Metamyelocytes % Abs Neuts (Manual) Lymphocytes # (Manual) Monocytes # (Manual) Metamyelocytes # Toxic Vacuolation Dohle Bodies Platelet Estimate Large Platelets Plt Morphology Comment RBC Morphology Polychromasia Tear Drop Cells Ovalocytes [place] Cells Anion Gap Estim Creat Clear Calc Estimated GFR Random Glucose Lactic Acid Calcium Magnesium Total Bilirubin AST ALT Alkaline Phosphatase C-Reactive Protein Total Protein Albumin TSH Free T4 Urine Color [place] A Urine Appearance Cloudy Urine pH 5.0 Ur Specific [place] 1.010 Urine Protein See Note Urine Glucose (UA) Negative Urine Ketones Negative Urine Blood Large (3+) H Urine Nitrite Negative Ur Leukocyte Esterase Large (3+) H Urine RBC >20 H Urine WBC >50 H Ur Squamous Epith Cells 0-2 Urine Bacteria 4+ Hyaline Casts 0-2 Urine Osmolality 327 L Ur Random Sodium < 20.0 Salicylates Urine Opiates Screen POSITIVE H Ur Buprenorphine Scrn Not Detected Ur Oxycodone Screen Not Detected Urine Methadone Screen Positive H Urine Fentanyl Screen POSITIVE H Acetaminophen Ur Barbiturates Screen Not Detected Ur Phencyclidine Scrn Not Detected Ur Amphetamines Screen Not Detected U Benzodiazepines Scrn Not Detected Urine Cocaine Screen POSITIVE H U Marijuana (THC) Screen Not Detected Blood Type A Positive Antibody Screen NEGATIVE Microbiology Microbiology Results: Microbiology 10/11/24 20:22 Blood Culture - Preliminary Blood - Venous Prelim: GPC Gram Stain only Prelim: GNR Gram Stain only 10/11/24 20:22 Blood Culture - Preliminary Blood - Venous Prelim: GPC Gram Stain only Prelim: GNR Gram Stain only Assessment and Plan (1) Cirrhosis of liver: Status: Acute (2) Thrombocytopenia: Status: Acute (3) Endocarditis of tricuspid valve: Status: Acute Plan This is a 29-year-old male with significant past medical history to include recent hospitalization at [facility] with discharge 09/14/2024 after 2 months of hospital stay diagnosed with sepsis, pyogenic arthritis of left hip, hyponatremia, tachycardia, left hip joint effusion, bilateral cavitary pulmonary embolism, thrombocytopenia, acute hypoxic respiratory failure, multifocal pneumonia, GI bleed secondary to portal hypertenisve gastropathy, hepatitis-C untreated, 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 Patient being admitted for multiple medical problems. Please note discharge summary from [facility] dated 09/14/2024 is available in patient's medical record. Sepsis due to polymicrobial bacteremia as well as multiple other possible sources of infection including possible infected PermCath (tunnelled) versus pneumonia versus UTI versus recurrent endocarditis Met sepsis criteria with fever, tachycardia, bandemia. Lactic acid normal. recent septic pulmonary embolism/ recent septic arthritis left hip/ tricuspid valve endocarditis with vegetation/ MSSA (completed 6 weeks of IV antibiotics at [facility]) Vancomycin and ceftriaxone started in the ED, changed to Vanco and cefepime, unable to do Zosyn due to allergy to penicillin BCX growing both Gram-positive and Gram-negative bacteria-await final speciation and sensitivities ID consult pending CT Chest and CT abd pelvis ordered but patient refusing; if patient agrees will need to be scheduled prior to dialysis Echocardiogram pending Pneumonia No hypoxia or respiratory symptoms. Chest x-ray showing patchy opacities possibly representing atelectasis or pneumonia We will be on broad-spectrum antibiotics for above No hypoxia DUo nebs prn UTI UA positive, follow urine culture Pt on cefepime Hyponatremia NA 126 Patient refusing a.m. labs, hold IVF for now Attempt to follow sodium levels Endocarditis of tricuspid valve s/p 6 weeks of IV abx at [facility] vegetation and moderate to severe tricuspid regurgitation present via bedside echo in ED (present at [facility]) Official echo ordered Cardiology consulted Continue antibiotics ID consultation pending Septic PE Secondary to TV Endocarditis recently diagnosed, was not discharged on AC CTA pending -patient denies imaging at this time, and due to renal disease will need contrast timed prior to HD (if nephrology agrees) Pt cannot initiate AC if needed due to low platelet count Septic Arthritis of Left Hip (past admission [facility]) ABD/Pelvis CT pending Pt refused surgical intervention at [facility] Contributing to patient's overall decreased mobility and weakness Toxic metabolic Encephalopathy resolved CT of the head ordered -pt refused ESRD on HD Nephrology consulted Report of dialysis M,W,F - pt stated he stopped going, unknown when last tx was - patient currently refusing dialysis Anemia secondary to end-stage renal disease H/H 7.6 23.5, no current indication for transfusion Stool for occult Recent multiple transfusions at [facility] for portal hypertensive gastropathy Protonix IV BID Thrombocytopenia Likely secondary to liver cirrhosis Splenomegaly noted 62K, hold Lovenox No evidence of spontaneous bleeding Hepatitis-C with liver cirrhosis/ portal hypertension untreated Outpatient f/u Substance Use Disorder Patient denies substance use since discharge from [facility] however tox screen positive for multiple substances. Addiction Medicine consulted-reportedly has not received his methadone since early in September Holding methadone for now, resume when indicated, Addiction Medicine to follow up Suicide ideation Patient currently on section 12 can not leave AMA Psychiatric consult ordered 1:[address] Discussion with patient regarding difficulty managing multiple acute medical issues without imaging/up-to-date lab work. Patient understands but continues to refuse interventions. DVT prophylaxis: Mechanical prophylaxis Contraindicated due to low platelet count of 62,000 Full Code status Quality Stroke Does the patient have a stroke diagnosis?: No Reason for No Anti-thrombotic by Day Two: Contraindicated (low platelet count ) VTE Prior VTE?: No VTE Risk Level:: Medical - moderate - high VTE Device Contraindication: N/A - Device Ordered VTE Drug Contraindication: N/A - Med Ordered
--- NOTE | 2024-10-12 12:30 | P.CONNP_ITS ---
History of Present Illness Reason for Consult Consult date: 10/12/24 Chief Complaint Chief complaint: SI History of Present Illness Narrative: 29 year old male with a past medical history for opioid use on methadone, IVDU, cocaine use and hepatitis C, RA as a child who presented to the ED at [facility] in with left hip pain. He was found to be septic with BCs positive for MSSA. CT Abdomen/Pelvis showed innumerable bilateral cavitary and noncavitary lung nodules suspicious for septic emboli, moderate left hip joint effusion, and developing left iliopsoas abscess. He was admitted and started on IV antibiotics. Ortho evaluated and now s/p left hip arthrotomy and I&D of left psoas abscess. Blood and tissue cultures grew MSSA. Hospital course complicated by Tricuspid valve endocarditis (cultures MSSA) s/p angiovac with Cardiac surgery on 06/26 and unfortunately left with new severe tricuspid reguritation after procedure; acute blood loss anemia requiring multiple transfusions with EGD showing portal hypertensive gastropathy otherwise unremarkable; agitation, thought to be opioid and cocaine withdrawal. He had TIMMY- hd dependen and was discharged on 09/14 with plans for twice a week hd at [facility] Past Medical History Medical History Abscess of male pelvis Portal hypertension Cirrhosis of liver Splenomegaly TIMMY (acute kidney injury) Hyperkalemia GI bleed Thrombocytopenia History of intravenous drug abuse Tachycardia Hyponatremia Juvenile rheumatoid arthritis Hepatitis C antibody positive Pneumonia MSSA (methicillin susceptible Staphylococcus aureus) Methadone maintenance therapy patient Substance use disorder Effusion, left hip Septic pulmonary embolism Severe tricuspid regurgitation Tricuspid valve vegetation Social History Social History Household Members: None and Unknown / Unable to assess Housing: Unknown / Unable to assess Unable to assess alcohol history related to: Refusing to respond Patient Tobacco Use Status: Current someday Tobacco user Tobacco use type: Cigarette Smoked in Last 30 Days: Yes e-Cigarette/Vaping Use: Currently Using Patient Interested in Nicotine Replacement: Yes Patient Given Instructions on How to Stop Smoking: Yes Date Education Initiated: 10/11/24 Second Hand Smoke Exposure: No Use of substances other than those prescribed or required for medical reasons: Refusing to respond Currently Displaying Signs/Symptoms of Drug Intoxication Withdrawal: No Have you been hit, kicked, punched, or otherwise hurt by someone within the past year? If so, by whom?: No Do you feel safe in your current relationship?: No Current Relationship Is there a partner from a previous relationship who is making you feel unsafe now?: No Are you made to feel afraid or neglected: No Advance Directives: No Advance Directives Information Provided: Yes Current/Past Psychiatric Disorders: Substance abuse Do you have a plan to hurt others: No Plan Recently lost weight without trying: Unsure Eating poorly because of decreased appetite: Yes Poor oral hygiene: Yes service: No Travel History Ebola Risk: Travel/Contact With Anyone From Affected Area/s: No Has Patient Experienced Ebola Symptoms: No Meds Allergies Allergy/AdvReac Type Severity Reaction Status Date / Time amoxicillin Allergy Unknown Verified 10/11/24 14:54 infliximab (From Remicade) Allergy Hives Verified 10/11/24 14:54 methotrexate Allergy Unknown Verified 10/11/24 14:54 Penicillins (PCN) Allergy Unknown Verified 10/11/24 14:54 Active Medications: Current Medications Acetaminophen (Acetaminophen 325 Mg Tablet) 650 mg PO Q6H PRN PRN Reason: Pain, Mild 1-3,fever,headache Last Admin: 10/12/24 02:08 Dose: 650 mg Albuterol/Ipratropium (Albuterol/Iprat 2.5/0.5mg 3 Ml Ampul.Neb) 3 ml INHALE Q4H PRN PRN Reason: Shortness of Breath/Wheezing Calcium Carbonate (Calcium Carbonate 750 Mg Tab.Chew) 750 mg PO Q4H PRN PRN Reason: Heartburn Cefepime HCl (Maxipime) 2 gm in 50 mls @ 100 mls/hr IV Q8H [facility] Last Infusion: 10/12/24 06:37 Dose: Infused Vancomycin HCl 500 mg/ Sodium (Chloride) 110 mls @ 110 mls/hr IV ONCE ONE Stop: 10/12/24 07:59 Albumin Human (Kedbumin 25 %) 100 mls @ 100 mls/hr IV Q6H [facility] Stop: 10/12/24 19:14 Magnesium Hydroxide (Milk Of Magnesia 30 Ml Oral.Susp) 30 ml PO DAILY PRN PRN Reason: Constipation Melatonin (Melatonin 3 Mg Tablet) 6 mg PO BEDTIME PRN PRN Reason: Insomnia Ondansetron HCl (Ondansetron Hcl 4 Mg/2 Ml Vial) 4 mg IVPUSH Q8H PRN PRN Reason: Nausea and Vomiting Pantoprazole Sodium (Pantoprazole Sodium 40 Mg/10 Ml Vial) 40 mg IVPUSH BID@0630,1630 [facility] Last Admin: 10/12/24 05:41 Dose: 40 mg Pharmacy Consult (Consult Rx Vancomycin Dosing) 1 each MISCELLANE DAILY PRN PRN Reason: Consult order Sodium Chloride (0.9 % Sodium Chloride Flush 3 Ml Syringe) 3 ml IVFLUSH QSHIFT [facility] Last Admin: 10/12/24 01:52 Dose: 3 ml Home Medications ?Medication ?Instructions ?Recorded ?Confirmed ?Last Taken ?Type acetaminophen 325 mg tablet 325 mg PO Q8H PRN Pain 10/11/24 Unknown History cyclobenzaprine 10 mg tablet 10 mg PO BEDTIME PRN Musc le Spasm 10/11/24 10/11/24 Unknown History gabapentin 300 mg capsule 300 mg PO BEDTIME PRN Pain 0 10/11/24 10/11/24 Unknown History methadone 10 mg/mL oral 95 mg PO BEDTIME 10/12/2409/26/24 10:15 History concentrate (Methadone Intensol) methadone 10 mg/mL oral 95 mg PO DAILY 10/12/24/08/1209/26/24 10:15 History concentrate (Methadone Intensol) Physical Exam Vital Signs: Last Vital Signs Temp 95.9 F L 10/12/24 11:50 Pulse 84 10/12/24 11:50 Resp 16 10/12/24 11:50 BP 90/53 L 10/12/24 11:50 Pulse Ox 99 10/12/24 11:50 O2 Del Method Room Air 10/12/24 11:50 BMI result Body Mass Index 23.6 Results Lab Results 10/12/24 16:54 10/12/24 16:54 Lab results: Chemistry 10/11/24 16:30 Sodium 126 L Potassium 4.0 Carbon Dioxide 13 L BUN 55 H Creatinine 1.24 Calcium 8.1 L Hematology 10/11/24 16:30 WBC 5.8 Hgb 7.6 L Plt Count 62 L Urinalysis 10/11/24 20:57 Urine Color [place] A Urine Appearance Cloudy Urine pH 5.0 Ur Specific [place] 1.010 Urine Protein See Note Urine Glucose (UA) Negative Urine Ketones Negative Urine Blood Large (3+) H Urine Nitrite Negative Ur Leukocyte Esterase Large (3+) H Urine RBC >20 H Urine WBC >50 H Ur Squamous Epith Cells 0-2 Hyaline Casts 0-2 Urine Studies 10/11/24 20:57 Urine Osmolality 327 L Assessment and Plan (1) Acute renal failure on dialysis: Status: Acute Plan Viktor An is a 29-year-old male with a past medical history for opioid use on methadone, IVDU, cocaine use and hepatitis C, who presented to [facility] on 06/22 with left hip pain, found to have MSSA bacteremia and septic emboli, and left iliopsoas abscess. He had left hip arthrotomy and I&D. Hospital course notable for tricuspid valve endocarditis s/p AngioVac 06/26 (with severe tricuspid regurgitation after procedure), acute blood loss anemia requiring multiple transfusions (EGD showing portal hypertensive gastropathy otherwise unremarkable), and severe TIMMY with renal biopsy showing GN. 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 - Acute tubular injury, interstitial inflammation and edema. - Global sclerosis of 1 of 25 glomeruli (4%). Interstitial fibrosis is difficult to assess but appears mild to moderate. - Electron microscopy Ultrastructural examination of 1 glomerulus demonstrates open capillary loops with focal thickening and wrinkling of glomerular basement membranes and modest effacement of podocytes. Electron dense deposits are relatively sparse compared to the immunofluorescence, but are identified in subepithelial, mesangial, and focal subendothelial locations. A few characteristic subepithelial notch deposits are noted. Subepithelial notch deposits in electron microscopy (EM) of kidney biopsies are most commonly associated with infection-related glomerulonephritis (IRGN) 1. TIMMY, HD dependent - now in recovery mild hypnatremia Cr peaked at 5.8 mg/dL prior to initiation of dialysis when baseline was normal Renal biopsy (07/26) shows acute proliferative glomerulonephritis with cellular crescents (11 of 24 glomeruli), immune complex mediated due to MSSA infection. Patient had normal complements during workup. No benefits to steroids for treatment. Crescents signify poor prognosis PermCath placed on 08/01 and previously dialyzing on a Tuesday/Tuesday schedule (interdialytic Cr rise is low and making good UOP) now appears in renal recovery. 24 hour urine collection with estimated GFR of 13 mL/min- prior to dc in ( [facility]) echo today - 1 cm x 0.7 cm vegetation aortic valve (right coronary cusp). Cannot rule out aortic root abscess. - Multiple vegetations on tricuspid valve with destruction of the valve architecture. Wide open severe tricuspid regurgitation. anemic with hb of 6 and plt 40 - likely myelosuppresion in the setting of ongoing infection, need to rule out blood loss. Recommendations: - continue monitoring for renal recovery - 24 hr cr clearance, - due to concern for ongoing infection, will remove permacath- he has not gotten dialysis in few weeks - abx per primary team for infection, De- escalation to a narrow spectrum abx based on sensitivities , ID eval in the setting of cardiac vegetations, follow blood cultures - monitor vanco dose closely with levels - prbc for hb< 7 - avoid nephrotoxins - monitor sodium level - serum osm of 280, if drops below 128, will consider fluid restriction Procedures Date of Service Date of Service: 10/12/24
--- NOTE | 2024-10-12 12:44 | P.CONCA_ITS ---
History of Present Illness History of Present Illness Date of Service: 10/12/24 Chief complaint: SI Narrative: [age] year gentleman presenting with suicide ideation. 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 He has severe tricuspid valve regurgitation and RV dilatation. Pericardial effusion on echocardiography, thrombocytopenia, anemia, juvenile rheumatoid arthritis with left septic hip and concern for iliopsoas abscess which was treated with antibiotics as the patient did not agree to any intervention as per discussion with medicine team. Previous septic emboli to the lungs too. He was seen at bedside. He is denying any significant symptoms. He is saying he is not going for dialysis today because he just does not feel like doing that today. Urine drug screen is positive for multiple drugs including cocaine. He is denying any IV drug use. [facility] Past Medical History Medical History Abscess of male pelvis Portal hypertension Cirrhosis of liver Splenomegaly TIMMY (acute kidney injury) Hyperkalemia GI bleed Thrombocytopenia History of intravenous drug abuse Tachycardia Hyponatremia Juvenile rheumatoid arthritis Hepatitis C antibody positive Pneumonia MSSA (methicillin susceptible Staphylococcus aureus) Methadone maintenance therapy patient Substance use disorder Effusion, left hip Septic pulmonary embolism Severe tricuspid regurgitation Tricuspid valve vegetation Social History Social History Household Members: None and Unknown / Unable to assess Housing: Unknown / Unable to assess Unable to assess alcohol history related to: Refusing to respond Patient Tobacco Use Status: Current someday Tobacco user Tobacco use type: Cigarette Smoked in Last 30 Days: Yes e-Cigarette/Vaping Use: Currently Using Patient Interested in Nicotine Replacement: Yes Patient Given Instructions on How to Stop Smoking: Yes Date Education Initiated: 10/11/24 Second Hand Smoke Exposure: No Use of substances other than those prescribed or required for medical reasons: Refusing to respond Currently Displaying Signs/Symptoms of Drug Intoxication Withdrawal: No Have you been hit, kicked, punched, or otherwise hurt by someone within the past year? If so, by whom?: No Do you feel safe in your current relationship?: No Current Relationship Is there a partner from a previous relationship who is making you feel unsafe now?: No Are you made to feel afraid or neglected: No Advance Directives: No Advance Directives Information Provided: Yes Do you have a plan to hurt others: No Plan Recently lost weight without trying: Unsure Eating poorly because of decreased appetite: Yes Poor oral hygiene: Yes service: No Travel History Ebola Risk: Travel/Contact With Anyone From Affected Area/s: No Has Patient Experienced Ebola Symptoms: No Meds Allergies Allergy/AdvReac Type Severity Reaction Status Date / Time amoxicillin Allergy Unknown Verified 10/11/24 14:54 infliximab (From Remicade) Allergy Hives Verified 10/11/24 14:54 methotrexate Allergy Unknown Verified 10/11/24 14:54 Penicillins (PCN) Allergy Unknown Verified 10/11/24 14:54 Active Medications: Current Medications Acetaminophen (Acetaminophen 325 Mg Tablet) 650 mg PO Q6H PRN PRN Reason: Pain, Mild 1-3,fever,headache Last Admin: 10/12/24 02:08 Dose: 650 mg Albuterol/Ipratropium (Albuterol/Iprat 2.5/0.5mg 3 Ml Ampul.Neb) 3 ml INHALE Q4H PRN PRN Reason: Shortness of Breath/Wheezing Calcium Carbonate (Calcium Carbonate 750 Mg Tab.Chew) 750 mg PO Q4H PRN PRN Reason: Heartburn Cefepime HCl (Maxipime) 2 gm in 50 mls @ 100 mls/hr IV Q8H [facility] Last Infusion: 10/12/24 06:37 Dose: Infused Vancomycin HCl 500 mg/ Sodium (Chloride) 110 mls @ 110 mls/hr IV ONCE ONE Stop: 10/12/24 07:59 Albumin Human (Kedbumin 25 %) 100 mls @ 100 mls/hr IV Q6H [facility] Stop: 10/12/24 19:14 Magnesium Hydroxide (Milk Of Magnesia 30 Ml Oral.Susp) 30 ml PO DAILY PRN PRN Reason: Constipation Melatonin (Melatonin 3 Mg Tablet) 6 mg PO BEDTIME PRN PRN Reason: Insomnia Ondansetron HCl (Ondansetron Hcl 4 Mg/2 Ml Vial) 4 mg IVPUSH Q8H PRN PRN Reason: Nausea and Vomiting Pantoprazole Sodium (Pantoprazole Sodium 40 Mg/10 Ml Vial) 40 mg IVPUSH BID@0630,1630 [facility] Last Admin: 10/12/24 05:41 Dose: 40 mg Pharmacy Consult (Consult Rx Vancomycin Dosing) 1 each MISCELLANE DAILY PRN PRN Reason: Consult order Sodium Chloride (0.9 % Sodium Chloride Flush 3 Ml Syringe) 3 ml IVFLUSH QSHIFT [facility] Last Admin: 10/12/24 01:52 Dose: 3 ml Home Medications ?Medication ?Instructions ?Recorded ?Confirmed ?Last Taken ?Type acetaminophen 325 mg tablet 325 mg PO Q8H PRN Pain 10/11/24 Unknown History cyclobenzaprine 10 mg tablet 10 mg PO BEDTIME PRN Musc le Spasm 10/11/24 10/11/24 Unknown History gabapentin 300 mg capsule 300 mg PO BEDTIME PRN Pain 0 10/11/24 10/11/24 Unknown History methadone 10 mg/mL oral 95 mg PO BEDTIME 10/12/2409/26/24 10:15 History concentrate (Methadone Intensol) methadone 10 mg/mL oral 95 mg PO DAILY 10/12/2409/1909/26/24 10:15 History concentrate (Methadone Intensol) Physical Exam 2 Vital Signs: Vital Signs: Last Vital Signs Temp 95.9 F L 10/12/24 11:50 Pulse 84 10/12/24 11:50 Resp 16 10/12/24 11:50 BP 90/53 L 10/12/24 11:50 Pulse Ox 99 10/12/24 11:50 O2 Del Method Room Air 10/12/24 11:50 BMI result Body Mass Index 23.6 GENERAL APPEARANCE: Cachectic. In no acute distress. NECK: no carotid bruit, no jugular venous distention. SKIN: no suspicious lesions, warm and dry. HEART: Left sternal border diastolic murmur. LUNGS: clear to auscultation bilaterally. ABDOMEN: soft, nontender. EXTREMITIES: no edema. PERIPHERAL PULSES: equal. Objective Labs and Meds 10/11/24 16:30 10/11/24 16:30 Lab results: Laboratory Results - last 24 hr 10/11/24 10/11/24 10/11/24 16:30 16:58 20:23 WBC 5.8 RBC 2.90 L Hgb 7.6 L Hct 23.5 L MCV 81.0 MCH 26.2 L MCHC 32.3 RDW 19.3 H Plt Count 62 L MPV 11.1 Immature Gran % (Auto) Cancelled Neut % (Auto) Cancelled Lymph % (Auto) Cancelled Bethel % (Auto) Cancelled Eos % (Auto) Cancelled Baso % (Auto) Cancelled Lymph # (Auto) Cancelled [place] # (Auto) Cancelled Eos # (Auto) Cancelled Baso # (Auto) Cancelled Abs Immat Gran (auto) Cancelled Absolute Neuts (auto) Cancelled Absolute Nucleated RBC 0.000 Nucleated RBC % (auto) 0.0 Neutrophils % (Manual) 75 H Band Neutrophils % 18 H Lymphocytes % (Manual) 4 L Monocytes % (Manual) 2 Metamyelocytes % 1 Abs Neuts (Manual) 5.4 Lymphocytes # (Manual) 0.2 L Monocytes # (Manual) 0.1 Metamyelocytes # 0.1 Toxic Vacuolation PRESENT Dohle Bodies PRESENT Platelet Estimate DECREASED Large Platelets PRESENT Plt Morphology Comment NOTED RBC Morphology NOTED Polychromasia 1+ (0-2) Tear Drop Cells 1+ (0-2) Ovalocytes 1+ (5-14) Tyson Cells 1+ (0-2) Sodium 126 L Potassium 4.0 Chloride 101 Carbon Dioxide 13 L Anion Gap 16 BUN 55 H Creatinine 1.24 Estim Creat Clear Calc 85.8 Estimated GFR > 60 Random Glucose 95 Lactic Acid 1.4 Calcium 8.1 L Magnesium 1.4 L* Total Bilirubin 0.9 AST 38 H ALT 7 Alkaline Phosphatase 102 C-Reactive Protein 19.23 H Total Protein 6.5 Albumin 2.8 L TSH 0.87 Free T4 1.00 Urine Color Urine Appearance Urine pH Ur Specific [place]co Urine Protein Urine Glucose (UA) Urine Ketones Urine Blood Urine Nitrite Ur Leukocyte Esterase Urine RBC Urine WBC Ur Squamous Epith Cells Urine Bacteria Hyaline Casts Urine Osmolality Ur Random Sodium Salicylates < 5.0 L Urine Opiates Screen Ur Buprenorphine Scrn Ur Oxycodone Screen Urine Methadone Screen Urine Fentanyl Screen Acetaminophen < 3 Ur Barbiturates Screen Ur Phencyclidine Scrn Ur Amphetamines Screen U Benzodiazepines Scrn Urine Cocaine Screen U Marijuana (THC) Screen Blood Type Antibody Screen 10/11/24 10/11/24 20:27 20:57 WBC RBC Hgb Hct MCV MCH MCHC RDW Plt Count MPV Immature Gran % (Auto) Neut % (Auto) Lymph % (Auto) [place] % (Auto) Eos % (Auto) Baso % (Auto) Lymph # (Auto) Bethel # (Auto) Eos # (Auto) Baso # (Auto) Abs Immat Gran (auto) Absolute Neuts (auto) Absolute Nucleated RBC Nucleated RBC % (auto) Neutrophils % (Manual) Band Neutrophils % Lymphocytes % (Manual) Monocytes % (Manual) Metamyelocytes % Abs Neuts (Manual) Lymphocytes # (Manual) Monocytes # (Manual) Metamyelocytes # Toxic Vacuolation Dohle Bodies Platelet Estimate Large Platelets Plt Morphology Comment RBC Morphology Polychromasia Tear Drop Cells Ovalocytes Tyson Cells Sodium Potassium Chloride Carbon Dioxide Anion Gap BUN Creatinine Estim Creat Clear Calc Estimated GFR Random Glucose Lactic Acid Calcium Magnesium Total Bilirubin AST ALT Alkaline Phosphatase C-Reactive Protein Total Protein Albumin TSH Free T4 Urine Color Cannon A Urine Appearance Cloudy Urine pH 5.0 Ur Specific [place]co 1.010 Urine Protein See Note Urine Glucose (UA) Negative Urine Ketones Negative Urine Blood Large (3+) H Urine Nitrite Negative Ur Leukocyte Esterase Large (3+) H Urine RBC >20 H Urine WBC >50 H Ur Squamous Epith Cells 0-2 Urine Bacteria 4+ Hyaline Casts 0-2 Urine Osmolality 327 L Ur Random Sodium < 20.0 Salicylates Urine Opiates Screen POSITIVE H Ur Buprenorphine Scrn Not Detected Ur Oxycodone Screen Not Detected Urine Methadone Screen Positive H Urine Fentanyl Screen POSITIVE H Acetaminophen Ur Barbiturates Screen Not Detected Ur Phencyclidine Scrn Not Detected Ur Amphetamines Screen Not Detected U Benzodiazepines Scrn Not Detected Urine Cocaine Screen POSITIVE H U Marijuana (THC) Screen Not Detected Blood Type A Positive Antibody Screen NEGATIVE Assessment and Plan (1) Endocarditis: Status: Acute Plan 29-year-old gentleman with tricuspid valve endocarditis which was treated with AngioVac in June 2024 at [facility]. He is presenting with suicide ideation. Drug screen is positive and he has Gram-positive cocci and Gram-negative rods in his blood. He was quite unkempt and had feces over his body as well as the dressing over the PermCath. Echocardiography showing vegetation on the aortic valve and thickness of the root and I am concerned that he may have a root abscess. He has multiple complex medical issues and is actively using drugs at this point. I will discuss with surgical team at [facility] but given his issues and active drug use he has treatment will be medical. Specify the bacteria and continue antibiotics. ID consultation. Thank you for allowing me to participate in the care of your patient. Please feel free to contact me if you have any questions. Procedures Date of Service Date of Service: 10/12/24
[2024-10-12] MEDS: Albumin Human 25 % 100 ML IV ×2 (13:21→18:47)
--- NOTE | 2024-10-12 14:29 | PC.NURSE ---
Still refusing blood work ,
--- NOTE | 2024-10-12 14:41 | HO.WOUND ---
Wound Consult: Initial 29yr old male? admitted to [facility] on 10/11/24 19:10 - See progress notes and H&P for detailed history.? Wound consult placed for Sacrum and Ischium.? Patient chart reviewed, Photo reviewed and discussed with direct care nuse. Sacrum and Left Ischium Etiology: ?Stage 2 Pressure Injury ?Present on Admission Wound Bed: red maroon open partial thickness tissue loss Edges: ? Irregular Slime wound: ?Dark Red tissue Goals of Treatment: ? Off Load Pressure Foam dressing or barrier cream to allow for moist wound healing and to protect from friction and moisture Recommendations: 1. Turn and Reposition every 2 hours and as needed for patient comfort.? Use pillows or wedges to support off loading positions. 2. Off Load all bony prominences with use of pillows and heel boots if needed.? Apply Preventative foams where needed. ? 3. Monitor for incontinence and moisture control, use barrier creams when needed for prevention and treatment. 4. Provide adequate and supplemental nutrition.? 5. Order low air loss mattress. 6. When applicable maintain blood glucose levels per Providers order. Left Ischium and Sacrum - Off Load Pressure with Q2 hr turns and use of pillows - Routine cleansing.? Apply skin prep allow to dry.? Cover with foam dressing to aid in off loading and protection from friction. Change every 3 days and PRN. If foam dressing need frequent changing may switch to barrier cream. Re-consult wound care Nurse for wound deterioration or wound changes.
[2024-10-12] MEDS: methADONE HCl 20 MG/2 ML ORAL.CONC 10 MG PO (16:17)
--- NOTE | 2024-10-12 16:23 | PC.NURSE ---
order in for dialysis perma cath in right chest removal . unable to reach IR via phone , this RN communicated with IR supervisor [employer] via [employer] text . Guerline Baugh received a message and she said that she will communicate with her staff , Taya FERRARA
[2024-10-12 17:08] LABS: VBG HCO3 14 mmol/L (22-26)
[2024-10-12 17:08] LABS: Venous Blood Gas Refer to POC result
[2024-10-12 17:13] LABS: Ammonia 34 umol/L (13-55)
[2024-10-12] MEDS: Lidocaine HCl 1 % 20 ML VIAL 10 ML SUBCUT (17:15)
[2024-10-12 17:19] LABS: Mean Corpuscular HGB Conc 33.3 g/dl (31.0-36.0); Mean Corpuscular Hemoglobin 26.5 pg (27.0-33.0); Mean Corpuscular Volume 79.6 fL (80.0-98.0); NRBC Abs Auto 0.000 X10*3/uL (0.0-0.012); NRBC Pct Auto 0.0 /100WBC (0.0-0.2); Red Blood Count 2.30 X10*6/uL (4.60-5.80); White Blood Count 4.4 X10*3/uL (4.8-10.8)
[2024-10-12 17:26] LABS: Osmolality, Serum 280 mosm/kg (281-305)
[2024-10-12 17:28] LABS: Blood Urea Nitrogen 45 mg/dL (9-16); Calcium 7.2 mg/dL (8.4-10.2); Estimated Glomerular Filt Rate > 60; Potassium 3.6 mmol/L (3.3-5.1); Sodium 128 mmol/L (135-145)
[2024-10-12 17:41] LABS: Hematocrit 18.3 % (42.0-52.0); Hemoglobin 6.1 g/dl (14.0-18.0); Platelet Count 40 X10*3/uL (160-400)
[2024-10-12 17:56] LABS: Band Neutrophils Percent 16 % (3-5); Lymphocytes Absolute Manual 0.3 X10*3/uL (1.2-4.9); Lymphocytes Percent Manual 7 % (20-40); Metamyelocytes Percent 1 %; Monocytes Absolute Manual 0.2 X10*3/uL (0.1-1.2); Monocytes Percent Manual 5 % (2-11); Neutrophils Absolute Manual 3.8 X10*3/uL (2.0-8.3); Neutrophils Percent Manual 71 % (45-73); RBC Morphology NOTED
[2024-10-12 17:57] LABS: Ovalocytes 1+ (5-14) /OIF; Tear Drop Cells 1+ (0-2) /OIF
[2024-10-12 17:58] LABS: Polychromasia 1+ (0-2) /OIF; Schistocytes 1+ (0-2) /OIF
[2024-10-12 17:59] LABS: Burr Cells 1+ (0-2) /OIF
[2024-10-12 18:09] LABS: Folate 11.7 ng/mL (> or = 4.0); Vitamin B12 1161 pg/mL (200-900)
--- NOTE | 2024-10-12 18:28 | PM.PSYCN ---
History of Present Illness Date of Service: 10/12/24 Chief Complaint: SI Reason for Consult: SI and on section 12A Requesting physician: Shaylee Alvarez Discussed with referring provider: No (Discussed with MD on duty Taya ) Sources of Information: patient interviewed, chart reviewed and crisis/core team assessment reviewed HPI Narrative: Per ED provider note on arrival: Patient is ia 29-year-old male with past medical history significant for end-stage renal disease on dialysis who reports no previous past medical history up until 1 month ago when he was admitted at [facility] presenting for evaluation of ?I do not want dialysis. ? The patient was placed on a section 12 by Anastacia Boggs, nurse practitioner due to refusal of dialysis treatments, emaciation, not perform ADLs and suspected substance abuse EMS reported that the patient had expressed some passive suicidal ideation stating that he wanted to skipped dialysis until it kills him. Past Psychiatric History: Patient denies IPLOC admission hx. Denies psychiatric dx of depression, anxiety, PTSD or bipolar. Medical Evaluation Reviewed: Yes Deferred to medical team note Personal & Social History: It is not clear if patient lives at home by self, or with mom or with girlfriend as he gives inconsistent information to different disciplines. Review of Systems Review of Systems Patient is in bed appears tired and heavy breathing. Per attending, patient has been refused treatment for medical conditions and critical care. [facility] Medical History Abscess of male pelvis Portal hypertension Cirrhosis of liver Splenomegaly TIMMY (acute kidney injury) Hyperkalemia GI bleed Thrombocytopenia History of intravenous drug abuse Tachycardia Hyponatremia Juvenile rheumatoid arthritis Hepatitis C antibody positive Pneumonia MSSA (methicillin susceptible Staphylococcus aureus) Methadone maintenance therapy patient Substance use disorder Effusion, left hip Septic pulmonary embolism Severe tricuspid regurgitation Tricuspid valve vegetation Family History: not discuss Social History: not discuss Substance History: Denies any substance use. Utox on arrival +FEN, JONATHAN, Opioid and MTD. He is on MTD maintenance. Trauma History: not discuss Diagnostics Vital Signs (24Hr): Vital Signs - 24 hr 10/11/24 22:15 10/12/24 02:05 10/12/24 03:43 Temperature 98.5 F 101.5 F H 100.0 F Pulse Rate 115 H 116 H Respiratory Rate 18 16 Blood Pressure 94/52 L 100/60 Pulse Oximetry 95 96 Oxygen Delivery Method Room Air Room Air 10/12/24 07:10 10/12/24 11:50 10/12/24 14:47 Temperature 98.1 F 95.9 F L 98.5 F Pulse Rate 94 84 98 Respiratory Rate 20 16 18 Blood Pressure 98/58 L 90/53 L 100/58 L Pulse Oximetry 98 99 100 Oxygen Delivery Method Room Air Room Air Room Air BMI result Body Mass Index 23.6 Labs 10/12/24 16:54 10/11/24 16:30 Labs: Laboratory Results - last 48 hr 10/11/24 10/11/24 10/11/24 16:30 16:58 20:23 WBC 5.8 RBC 2.90 L Hgb 7.6 L Hct 23.5 L MCV 81.0 MCH 26.2 L MCHC 32.3 RDW 19.3 H Plt Count 62 L MPV 11.1 Immature Gran % (Auto) Cancelled Neut % (Auto) Cancelled Lymph % (Auto) Cancelled Eagle % (Auto) Cancelled Eos % (Auto) Cancelled Baso % (Auto) Cancelled Lymph # (Auto) Cancelled Eagle # (Auto) Cancelled Eos # (Auto) Cancelled Baso # (Auto) Cancelled Abs Immat Gran (auto) Cancelled Absolute Neuts (auto) Cancelled Absolute Nucleated RBC 0.000 Nucleated RBC % (auto) 0.0 Neutrophils % (Manual) 75 H Band Neutrophils % 18 H Lymphocytes % (Manual) 4 L Monocytes % (Manual) 2 Metamyelocytes % 1 Abs Neuts (Manual) 5.4 Lymphocytes # (Manual) 0.2 L Monocytes # (Manual) 0.1 Metamyelocytes # 0.1 Toxic Vacuolation PRESENT Dohle Bodies PRESENT Platelet Estimate DECREASED Large Platelets PRESENT Plt Morphology Comment NOTED RBC Morphology NOTED Polychromasia 1+ (0-2) Tear Drop Cells 1+ (0-2) Ovalocytes 1+ (5-14) [place] Cells 1+ (0-2) Schistocytes VBG pH VBG pCO2 VBG pO2 VBG HCO3 VBG Base Excess Sodium 126 L Potassium 4.0 Chloride 101 Carbon Dioxide 13 L Anion Gap 16 BUN 55 H Creatinine 1.24 Estim Creat Clear Calc 85.8 Estimated GFR > 60 Random Glucose 95 Haptoglobin Osmolality Lactic Acid 1.4 Calcium 8.1 L Magnesium 1.4 L* Total Bilirubin 0.9 AST 38 H ALT 7 Alkaline Phosphatase 102 Ammonia C-Reactive Protein 19.23 H Total Protein 6.5 Albumin 2.8 L Vitamin B12 Folate TSH 0.87 Free T4 1.00 Urine Color Urine Appearance Urine pH Ur Specific [place] Urine Protein Urine Glucose (UA) Urine Ketones Urine Blood Urine Nitrite Ur Leukocyte Esterase Urine RBC Urine WBC Ur Squamous Epith Cells Urine Bacteria Hyaline Casts Urine Osmolality Ur Random Sodium Random Vancomycin Salicylates < 5.0 L Urine Opiates Screen Ur Buprenorphine Scrn Ur Oxycodone Screen Urine Methadone Screen Urine Fentanyl Screen Acetaminophen < 3 Ur Barbiturates Screen Ur Phencyclidine Scrn Ur Amphetamines Screen U Benzodiazepines Scrn Urine Cocaine Screen U Marijuana (THC) Screen Blood Type Antibody Screen 10/11/24 10/11/24 10/12/24 20:27 20:57 16:54 WBC 4.4 L RBC 2.30 L D Hgb 6.1 L* Hct 18.3 L* D MCV 79.6 L MCH 26.5 L MCHC 33.3 RDW 19.3 H Plt Count 40 L D MPV 11.0 Immature Gran % (Auto) Neut % (Auto) Lymph % (Auto) Eagle % (Auto) Eos % (Auto) Baso % (Auto) Lymph # (Auto) Eagle # (Auto) Eos # (Auto) Baso # (Auto) Abs Immat Gran (auto) Absolute Neuts (auto) Absolute Nucleated RBC 0.000 Nucleated RBC % (auto) 0.0 Neutrophils % (Manual) 71 Band Neutrophils % 16 H Lymphocytes % (Manual) 7 L Monocytes % (Manual) 5 Metamyelocytes % 1 Abs Neuts (Manual) 3.8 Lymphocytes # (Manual) 0.3 L Monocytes # (Manual) 0.2 Metamyelocytes # Toxic Vacuolation Dohle Bodies Platelet Estimate DECREASED Large Platelets Plt Morphology Comment NORMAL RBC Morphology NOTED Polychromasia 1+ (0-2) Tear Drop Cells 1+ (0-2) Ovalocytes 1+ (5-14) Tyson Cells 1+ (0-2) Schistocytes 1+ (0-2) VBG pH VBG pCO2 VBG pO2 VBG HCO3 VBG Base Excess Sodium Potassium Chloride Carbon Dioxide Anion Gap BUN Creatinine Estim Creat Clear Calc Estimated GFR Random Glucose Haptoglobin 121 Osmolality 280 L Lactic Acid Calcium Magnesium Total Bilirubin AST ALT Alkaline Phosphatase Ammonia 34 C-Reactive Protein Total Protein Albumin Vitamin B12 1161 H Folate 11.7 TSH Free T4 Urine Color Winkler A Urine Appearance Cloudy Urine pH 5.0 Ur Specific [place] 1.010 Urine Protein See Note Urine Glucose (UA) Negative Urine Ketones Negative Urine Blood Large (3+) H Urine Nitrite Negative Ur Leukocyte Esterase Large (3+) H Urine RBC >20 H Urine WBC >50 H Ur Squamous Epith Cells 0-2 Urine Bacteria 4+ Hyaline Casts 0-2 Urine Osmolality 327 L Ur Random Sodium < 20.0 Random Vancomycin 17.3 Salicylates Urine Opiates Screen POSITIVE H Ur Buprenorphine Scrn Not Detected Ur Oxycodone Screen Not Detected Urine Methadone Screen Positive H Urine Fentanyl Screen POSITIVE H Acetaminophen Ur Barbiturates Screen Not Detected Ur Phencyclidine Scrn Not Detected Ur Amphetamines Screen Not Detected U Benzodiazepines Scrn Not Detected Urine Cocaine Screen POSITIVE H U Marijuana (THC) Screen Not Detected Blood Type A Positive Antibody Screen NEGATIVE 10/12/24 16:59 WBC RBC Hgb Hct MCV MCH MCHC RDW Plt Count MPV Immature Gran % (Auto) Neut % (Auto) Lymph % (Auto) Eagle % (Auto) Eos % (Auto) Baso % (Auto) Lymph # (Auto) Eagle # (Auto) Eos # (Auto) Baso # (Auto) Abs Immat Gran (auto) Absolute Neuts (auto) Absolute Nucleated RBC Nucleated RBC % (auto) Neutrophils % (Manual) Band Neutrophils % Lymphocytes % (Manual) Monocytes % (Manual) Metamyelocytes % Abs Neuts (Manual) Lymphocytes # (Manual) Monocytes # (Manual) Metamyelocytes # Toxic Vacuolation Dohle Bodies Platelet Estimate Large Platelets Plt Morphology Comment RBC Morphology Polychromasia Tear Drop Cells Ovalocytes Tyson Cells Schistocytes VBG pH 7.40 VBG pCO2 22 VBG pO2 61 VBG HCO3 14 L VBG Base Excess -9.1 Sodium Potassium Chloride Carbon Dioxide Anion Gap BUN Creatinine Estim Creat Clear Calc Estimated GFR Random Glucose Haptoglobin Osmolality Lactic Acid Calcium Magnesium Total Bilirubin AST ALT Alkaline Phosphatase Ammonia C-Reactive Protein Total Protein Albumin Vitamin B12 Folate TSH Free T4 Urine Color Urine Appearance Urine pH Ur Specific [place] Urine Protein Urine Glucose (UA) Urine Ketones Urine Blood Urine Nitrite Ur Leukocyte Esterase Urine RBC Urine WBC Ur Squamous Epith Cells Urine Bacteria Hyaline Casts Urine Osmolality Ur Random Sodium Random Vancomycin Salicylates Urine Opiates Screen Ur Buprenorphine Scrn Ur Oxycodone Screen Urine Methadone Screen Urine Fentanyl Screen Acetaminophen Ur Barbiturates Screen Ur Phencyclidine Scrn Ur Amphetamines Screen U Benzodiazepines Scrn Urine Cocaine Screen U Marijuana (THC) Screen Blood Type Antibody Screen Mental Status Exam Mental Status Exam Narrative: Patient is alert and oriented x3; behavior is cooperative, friendly upon approach; patient is not in distress but appears to breathing heavily d/t medical condition; no hospital attire with unkempt hair and appears disheveled; mood is described as tired and affect incongruent; eye contact appropriate; Speech is slow to normal rate, volume and prosody and not pressured; Patient takes breaks between sensence to catch up with breath, no psychomotor agitation/retardation present; thought process is somewhat organized but poor memory; Thought content is WN, pertinent to relevant topics and without any delusional content, paranoid ideation or grandiosity; denies any SI/SIB/HI. Denies AH and there is no evidence of perceptual disturbance. Patient appears to minimzie of symptom with mild poor historian. Patient's insight and judgment poor and impaired. Medications Medications Current Medications Acetaminophen (Acetaminophen 325 Mg Tablet) 650 mg PO Q6H PRN PRN Reason: Pain, Mild 1-3,fever,headache Last Admin: 10/12/24 02:08 Dose: 650 mg Albuterol/Ipratropium (Albuterol/Iprat 2.5/0.5mg 3 Ml Ampul.Neb) 3 ml INHALE Q4H PRN PRN Reason: Shortness of Breath/Wheezing Calcium Carbonate (Calcium Carbonate 750 Mg Tab.Chew) 750 mg PO Q4H PRN PRN Reason: Heartburn Cefepime HCl (Maxipime) 2 gm in 50 mls @ 100 mls/hr IV Q8H REPLACED BY [facility] Last Infusion: 10/12/24 14:51 Dose: Infused Vancomycin HCl 500 mg/ Sodium (Chloride) 110 mls @ 110 mls/hr IV ONCE ONE Stop: 10/12/24 07:59 Albumin Human (Kedbumin 25 %) 100 mls @ 100 mls/hr IV Q6H REPLACED BY [facility] Stop: 10/12/24 19:14 Last Infusion: 10/12/24 14:22 Dose: Infused Magnesium Hydroxide (Milk Of Magnesia 30 Ml Oral.Susp) 30 ml PO DAILY PRN PRN Reason: Constipation Melatonin (Melatonin 3 Mg Tablet) 6 mg PO BEDTIME PRN PRN Reason: Insomnia Ondansetron HCl (Ondansetron Hcl 4 Mg/2 Ml Vial) 4 mg IVPUSH Q8H PRN PRN Reason: Nausea and Vomiting Pantoprazole Sodium (Pantoprazole Sodium 40 Mg/10 Ml Vial) 40 mg IVPUSH BID@0630,1630 REPLACED BY [facility] Last Admin: 10/12/24 16:17 Dose: 40 mg Pharmacy Consult (Consult Rx Vancomycin Dosing) 1 each MISCELLANE DAILY PRN PRN Reason: Consult order Sodium Chloride (0.9 % Sodium Chloride Flush 3 Ml Syringe) 3 ml IVFLUSH QSHIFT REPLACED BY [facility] Last Admin: 10/12/24 16:18 Dose: 3 ml Allergies Allergies Allergy/AdvReac Type Severity Reaction Status Date / Time amoxicillin Allergy Unknown Verified 10/11/24 14:54 infliximab (From Remicade) Allergy Hives Verified 10/11/24 14:54 methotrexate Allergy Unknown Verified 10/11/24 14:54 Penicillins (PCN) Allergy Unknown Verified 10/11/24 14:54 Assessment & Plan Assessment & Plan (1) Suicidal thoughts: Status: Acute Code(s): R45.851 - Suicidal ideations Plan HPI: Per ED provider note on arrival: Patient is ia 29-year-old male with past medical history significant for end-stage renal disease on dialysis who reports no previous past medical history up until 1 month ago when he was admitted at [facility] presenting for evaluation of ?I do not want dialysis. ? The patient was placed on a section 12 by Anastacia Boggs, nurse practitioner due to refusal of dialysis treatments, emaciation, not perform ADLs and suspected substance abuse EMS reported that the patient had expressed some passive suicidal ideation stating that he wanted to skipped dialysis until it kills him. Meet with patient by 1712 in his room 459-1 with the present of the male sitter. Patient is A+Ox3. Understand situation led to ED visit. He denies depression or anxiety. Denies psychiatric dx hx as well. Mood is tired . Denies SI/SIB/HI/AVH. Report that they all say but they do see . He appears to minimize of psychiatric and substance use symptoms. Patient sometimes lost trend of thoughts when answering questions. He denies any suicidal thoughts now and even prior to be brought to the ED. He denies hx of taking any psychotropic medication in the past. He says beside him, his mom and his girlfriend would know more about him. However, he has hard time remember their name. He does not remember their phone number neither. He is not consistent with information regarding lving situation of who he is staying with at home. He denies any substance use. However, Utox done in the ED was + JONATHAN, FEN, Opioid , and MTD. Per nurse and attending who are on duty, his girlfriend brought Heroin in her him while he was IP at [facility]. Per the attending on duty today, patient refused all critical medical condition that put his health even in worse condition. He refused labwork, refuse dialysis and other treatment. Denies SI/SIB/HI/AVH. Not sure it is his passive SI to or kill himself by refusing recommended treatment as plan per medical team. At this time, it is more important to address critical medical conditions first. Then we will revisit if he is appropriate for psychiatric admission or rehab for substance use (see medical dx hx for more details). Case discussed with nurse and attending on duty. Encourage to compliant with treatment plan. . Total time managing care of this patient today ____ minutes. Patient educated on: diagnosis, medication risk/benefits and substance abuse Informed Consent: further education needed
[2024-10-12 20:28] LABS: Anion Gap 14 (12-20); Carbon Dioxide 14 mmol/L (22-29); Chloride 104 mmol/L (96-108); Creatinine Clr Calc Pharmacy 90.9; Iron 31 mcg/dL (45-160); Magnesium 1.8 mg/dL (1.6-2.6); Percent Iron Saturation 30 % (15-50); Total Iron Binding Capacity 104 mcg/dL (228-428); Unsaturated Iron Binding 73 ug/dL
--- NOTE | 2024-10-12 21:14 | PM.EVENT ---
Event Note Date of Service: 10/12/24 Event Note: Hb 6.1 Will order 1 unit prbc Time Spent With Patient Time: Total time managing care of this patient today ____ minutes.
--- NOTE | 2024-10-12 22:13 | PM.EVENT ---
Event Note Date of Service: 10/13/24 Event Note: Patient seen to complete blood consent noting hemoglobin 6.1 today (repeat CBC).. Hemodynamics relatively stable with a heart rate of 98, blood pressure 100/64. Patient denies any chest pain currently or shortness of breath at rest. Patient's affect appears to be flat but patient is interactive and patient has also now agreed to complete CT scans that were previously canceled because patient refused testing. Patient is agreeable to blood transfusion and all risks regarding blood transfusions were discussed and patient did sign the consent on his own. In addition, patient has not had any vancomycin since yesterday per nursing. Patient had refused blood draws for vanco trough earlier. The PermCath was then removed, but prior to removal, the vancomycin trough was obtained. The current trough is 18. This was reviewed with Parviz in pharmacy. Parviz is aware of the situation and the plan is to repeat the trough the morning on 10/13/2024 and continue dosing based on those results. Patient is currently receiving cefepime. Patient is currently afebrile and not complaining of chills. CT scans will be completed stat while the blood is being processed for transfusion. Patient will go down on IV fluids for support. Upon return patient will receive blood transfusion as ordered. Patient will then receive fluid bolus noting contrast exposure. Radiologist send and urgent message regarding CT head. These results were reviewed with Dr. Jensen, as this adjusto writer operator was completing an admission in the ED. Dr. Jensen did speak with radiologist regarding results. CT HEAD IMPRESSION: Loss of rubio-white matter differentiation in the left frontal lobe concerning for infarct from septic emboli, given the history. CTA IMPRESSION: 1. Bilateral solid and cavitary nodules, likely septic emboli 2. Small bilateral pleural effusions 3. Mild cardiomegaly with trace pericardial effusion 4. No pulmonary emboli identified to the proximal segmental level, with more distal branches limited by motion artifact CT ABD PELVIS IMPRESSION: 1. Multiple pulmonary nodules and cavitary lesions concerning for septic emboli 2. Left hip septic arthritis and osteomyelitis with posterior subluxation of femoral head 3. Hepatomegaly and splenomegaly with inferior splenic infarct 4. Small bilateral pleural effusions and trace pericardial effusion 5. Abdominopelvic ascites and anasarca Dr. Jensen will report to day Hospitalist proivider the following results as stated above. Platelets are down to 40K. Pt is completing the one unit of PRBC's with repeat H/H planned at least 1-2 hours after completion. As there are no hemorrhagic issues regardign the CT head, pt does not require transfer to higher level of care. (Reviewed with Dr. Jensen) Time Spent With Patient Time: Total time managing care of this patient today ____ minutes.
[2024-10-12] MEDS: iohexoL 350 MG/ML 100 ML INFUS..BTL 85 ML IV (23:56)
[2024-10-13] VITALS (10 sets, daily range): BP systolic 101–116; BP diastolic 62–74; PULSE 95–104; RESP 18–20; TEMP 36.4–37.2; O2SAT 98–100; BMI 18.9
[2024-10-13] MEDS: cefEPime HCl/D5W 2 GM/50 ML PIGGYBACK IV (05:20)
--- NOTE | 2024-10-13 10:21 | HE.PHANOTE ---
RE: vanco to dapto Patient refusing blood draws, asked to switch to daptomycin by Linh Calle
--- NOTE | 2024-10-13 10:31 | P.PNIM_ITS ---
Subjective Subjective Date of Service: 10/13/24 Interval History: Seen and examined this morning Awake, alert. Appears comfortable denies sob, pain says he's fine Constitutional Constitutional: Denies chills and Denies fever(s) Physical Exam 2 Vital Signs: Vital Signs: Last Vital Signs Temp 98.3 F 10/13/24 07:49 Pulse 104 H 10/13/24 07:49 Resp 18 10/13/24 07:49 BP 103/65 10/13/24 07:49 Pulse Ox 99 10/13/24 07:49 O2 Del Method Room Air 10/13/24 07:49 BMI result Body Mass Index 18.9 Const: Other: Thin, chronically ill-appearing Answers some questions appropriately, but vague at times General: alert and awake Nutritional Appearance: thin Resp: Effort & Inspection: normal respiratory effort, able to speak in complete sentences, no respiratory distress and no use of accessory muscles Cardio: Rate: tachycardic GI: Inspection: No distended Palpation (GI): Soft to palpation Skin: Other: Dialysis catheter right chest wall Neuro: Other: limited exam General: moves all extremities Objective Data Active Medications Acetaminophen (Acetaminophen 325 Mg Tablet) 650 mg PO Q6H PRN PRN Reason: Pain, Mild 1-3,fever,headache Last Admin: 10/12/24 02:08 Dose: 650 mg Documented By: ROSA ELENA Albuterol/Ipratropium (Albuterol/Iprat 2.5/0.5mg 3 Ml Ampul.Neb) 3 ml INHALE Q4H PRN PRN Reason: Shortness of Breath/Wheezing Calcium Carbonate (Calcium Carbonate 750 Mg Tab.Chew) 750 mg PO Q4H PRN PRN Reason: Heartburn Cefepime HCl (Maxipime) 2 gm in 50 mls @ 100 mls/hr IV Q8H [facility] Last Infusion: 10/13/24 06:09 Dose: Infused Documented By: FABIOLA Sodium Chloride (Ns) 1,000 mls @ 100 mls/hr IVCONT .Q10H [facility] Last Infusion: 10/13/24 04:07 Dose: 100 mls/hr Documented By: FABIOLA Daptomycin 500 mg/ Sodium (Chloride) 60 mls @ 120 mls/hr IV Q24H [facility] Magnesium Hydroxide (Milk Of Magnesia 30 Ml Oral.Susp) 30 ml PO DAILY PRN PRN Reason: Constipation Melatonin (Melatonin 3 Mg Tablet) 6 mg PO BEDTIME PRN PRN Reason: Insomnia Ondansetron HCl (Ondansetron Hcl 4 Mg/2 Ml Vial) 4 mg IVPUSH Q8H PRN PRN Reason: Nausea and Vomiting Pantoprazole Sodium (Pantoprazole Sodium 40 Mg/10 Ml Vial) 40 mg IVPUSH BID@0630,1630 [facility] Last Admin: 10/13/24 05:20 Dose: 40 mg Documented By: FABIOLA Sodium Chloride (0.9 % Sodium Chloride Flush 3 Ml Syringe) 3 ml IVFLUSH QSHIFT [facility] Last Admin: 10/13/24 09:39 Dose: Not Given Documented By: FUAD Non-Admin Reason: IV Running Labs 10/12/24 16:54 10/12/24 16:54 Labs: Laboratory Results - last 24 hr 10/11/24 10/12/24 10/12/24 20:27 16:54 16:59 MCV 79.6 L MCH 26.5 L MCHC 33.3 RDW 19.3 H Plt Count 40 L D MPV 11.0 Absolute Nucleated RBC 0.000 Nucleated RBC % (auto) 0.0 Neutrophils % (Manual) 71 Band Neutrophils % 16 H Lymphocytes % (Manual) 7 L Monocytes % (Manual) 5 Metamyelocytes % 1 Abs Neuts (Manual) 3.8 Lymphocytes # (Manual) 0.3 L Monocytes # (Manual) 0.2 Platelet Estimate DECREASED Plt Morphology Comment NORMAL RBC Morphology NOTED Polychromasia 1+ (0-2) Tear Drop Cells 1+ (0-2) Ovalocytes 1+ (5-14) Tyson Cells 1+ (0-2) Schistocytes 1+ (0-2) ESR 13 VBG pH 7.40 VBG pCO2 22 VBG pO2 61 VBG HCO3 14 L VBG Base Excess -9.1 Anion Gap 14 Estim Creat Clear Calc 90.9 Estimated GFR > 60 Random Glucose 143 H Haptoglobin 121 Osmolality 280 L Calcium 7.2 L D Magnesium 1.8 Iron 31 L TIBC 104 L % Saturation 30 Unsat Iron Binding 73 Ammonia 34 Lactate Dehydrogenase 156 Vitamin B12 1161 H Folate 11.7 Random Vancomycin 17.3 Blood Type A Positive Antibody Screen NEGATIVE Crossmatch See Detail Microbiology Microbiology Results: Microbiology 10/11/24 Unknown Urine Culture - Final Urine clean catch - Clean Catch Midstream 10/11/24 20:22 Blood Culture - Preliminary Blood - Venous Prelim: GPC Gram Stain only Prelim: GNR Gram Stain only 10/11/24 20:22 Blood Culture - Preliminary Blood - Venous Prelim: GPC Gram Stain only Prelim: GNR Gram Stain only 10/12/24 16:10 Catheter Tip Culture - Preliminary Catheter Tip - Other Culture in progress. Assessment and Plan (1) Aortic valve endocarditis: Status: Acute (2) Endocarditis of tricuspid valve: Status: Acute (3) Thrombocytopenia: Status: Acute (4) Intracranial septic embolism: Status: Acute (5) Septic pulmonary embolism: Status: Acute (6) Hyponatremia: Status: Acute Plan This is a 29-year-old male with significant past medical history to include recent hospitalization at [facility] with discharge 09/14/2024 after 2 months of hospital stay diagnosed with sepsis, pyogenic arthritis of left hip, hyponatremia, tachycardia, left hip joint effusion, bilateral cavitary pulmonary embolism, thrombocytopenia, acute hypoxic respiratory failure, multifocal pneumonia, GI bleed secondary to portal hypertenisve gastropathy, hepatitis-C untreated, 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 Patient being admitted for multiple medical problems. Please note discharge summary from [facility] dated 09/14/2024 is available in patient's medical record. Sepsis due to polymicrobial bacteremia as well as multiple other sources of infection including possible infected PermCath versus septic emboli to lungs; UTI, recurrent endocarditis and septic arthritis and osteomyelitis of the left hip Met sepsis criteria with fever, tachycardia, bandemia. Lactic acid normal. recent septic pulmonary embolism/ recent septic arthritis left hip/ tricuspid valve endocarditis with vegetation/ MSSA (completed 6 weeks of IV antibiotics at [facility] echo showing vegetation aortic valve, can not rule out aortic root abscess; multiple vegetations on tricuspid valve Continue cefepime, patient frequently refusing lab work hard to dose vancomycin, will change to daptomycin BCX growing both Gram-positive and Gram-negative bacteria-await final speciation and sensitivities ID consult pending Endocarditis of tricuspid valve and aortic valve s/p 6 weeks of IV abx at [facility] Now with multiple vegetations of tricuspid valve as well as aortic valve vegetation with possible aortic root abscess Continue antibiotics ID consultation pending Seen by cardiology; case discussed with cardiac surgery at [facility]- patient is not a candidate for cardiac surgery septic pulmonary emboli due to endocarditis will be on broad-spectrum antibiotics as above No hypoxia/respiratory symptoms DUo nebs prn Septic emboli to brain Neuro checks PT/OT evaluation Hold aspirin due to thrombocytopenia/anemia hold statin neurology consult UTI Ruled out. Urine culture growing greater than 100,000 mixed gabino consistent with contamination Hyponatremia NA 126 Up to 128. Refusing a.m. labs Septic Arthritis of Left Hip (past admission [facility]) ABD/Pelvis CT pending Pt refused surgical intervention at [facility] Contributing to patient's overall decreased mobility and weakness Toxic metabolic Encephalopathy Likely multifactorial due to sepsis, severe acute illness, septic emboli to brain ESRD on HD Nephrology following. Has not been to dialysis and multiple weeks Appears to have renal recovery, plan for 24 hour urine collection PermCath removed due to concern for infection Patient refused morning labs Anemia secondary to end-stage renal disease H/H dropped, received a unit of blood Likely due to renal disease/chronic inflammation. No overt bleeding noted Vitamin B12/folate levels normal to high Stool occult pending Patient refused a.m. labs Recent multiple transfusions at [facility] for portal hypertensive gastropathy Protonix IV BID Thrombocytopenia Likely secondary to liver cirrhosis Splenomegaly noted 62K, hold Lovenox No evidence of spontaneous bleeding Hepatitis-C with liver cirrhosis/ portal hypertension untreated Outpatient f/u Substance Use Disorder Patient denies substance use since discharge from [facility] however tox screen positive for multiple substances. Addiction Medicine consulted-reportedly has not received his methadone since early in September Holding methadone for now, resume when indicated, Addiction Medicine to follow up Suicide ideation Patient currently on section 12 can not leave AMA Psychiatric consult ordered 1:[address] DVT prophylaxis: Mechanical prophylaxis Contraindicated due to low platelet count of 62,000 Full Code status have been unable to find contact information for family; [place] [facility] [place] patient does not seem able to make medical decisions Quality Stroke Does the patient have a stroke diagnosis?: No Reason for No Anti-thrombotic by Day Two: Contraindicated (low platelet count ) VTE Prior VTE?: No VTE Risk Level:: Medical - moderate - high VTE Device Contraindication: N/A - Device Ordered VTE Drug Contraindication: N/A - Med Ordered
--- NOTE | 2024-10-13 11:20 | MHC.RECOVRN ---
Met w/ pt in follow up to assess for opioid withdrawal symptoms. Upon approach pt appears to be resting comfortably in bed, calm, no signs of distress, no restlessness, no excessive sweating, no signs of experiencing pain. When patient heard his name he briefly woke up, denied any symptoms of discomfort and stated I'm fine . No intervention necessary at the moment in terms of withdrawal management. Will continue to monitor and follow up with pt for addiction/recovery needs. Discussed with KEMI Clayton and ALEM Bain.
[2024-10-13 11:54] LABS: MANUAL DIFF FLAG NO
[2024-10-13 12:05] LABS: Hematocrit 23.7 % (42.0-52.0); Hemoglobin 7.7 g/dl (14.0-18.0); Imm Gran Abs Auto 0.05 X10*3/uL (0.00-0.03); Imm Gran Pct Auto 0.9 % (0.0-0.4); Lymphocytes Absolute Auto 0.8 X10*3/uL (1.2-4.9); Mean Corpuscular HGB Conc 32.5 g/dl (31.0-36.0); Mean Corpuscular Hemoglobin 26.6 pg (27.0-33.0); Mean Corpuscular Volume 81.7 fL (80.0-98.0); NRBC Abs Auto 0.000 X10*3/uL (0.0-0.012); NRBC Pct Auto 0.0 /100WBC (0.0-0.2); Red Blood Count 2.90 X10*6/uL (4.60-5.80); White Blood Count 5.4 X10*3/uL (4.8-10.8)
[2024-10-13 12:08] LABS: Platelet Count 58 X10*3/uL (160-400)
--- NOTE | 2024-10-13 12:08 | PM.PNCARD ---
Subjective Subjective Date of Service: 10/13/24 Interval history: Seen examined at bedside. Somnolent but arousable. Denying any complaints currently. He had imaging done including abdominal imaging showing left hip septic arthritis and osteomyelitis. He had CT head performed which showed left frontal infarct due to septic emboli. His PermCath has been removed from the right chest wall given bacteremia. Physical Exam Vital Signs: Last Vital Signs Temp 98.1 F 10/13/24 11:44 Pulse 96 10/13/24 11:44 Resp 20 10/13/24 11:44 BP 116/74 10/13/24 11:44 Pulse Ox 98 10/13/24 11:44 O2 Del Method Room Air 10/13/24 11:44 BMI result Body Mass Index 18.9 GENERAL APPEARANCE: Cachectic. In no acute distress. Tachypneic. Somnolent. NECK: no carotid bruit, + jugular venous distention. Prominent V-wave. SKIN: no suspicious lesions, warm and dry. HEART: Left sternal border diastolic murmur. LUNGS: clear to auscultation bilaterally. ABDOMEN: soft, nontender. EXTREMITIES: no edema. PERIPHERAL PULSES: equal. Objective Labs and Meds 10/12/24 16:54 10/12/24 16:54 Lab results: Laboratory Results - last 24 hr 10/11/24 10/12/24 10/12/24 20:27 16:54 16:59 WBC 4.4 L RBC 2.30 L D Hgb 6.1 L* Hct 18.3 L* D MCV 79.6 L MCH 26.5 L MCHC 33.3 RDW 19.3 H Plt Count 40 L D MPV 11.0 Absolute Nucleated RBC 0.000 Nucleated RBC % (auto) 0.0 Neutrophils % (Manual) 71 Band Neutrophils % 16 H Lymphocytes % (Manual) 7 L Monocytes % (Manual) 5 Metamyelocytes % 1 Abs Neuts (Manual) 3.8 Lymphocytes # (Manual) 0.3 L Monocytes # (Manual) 0.2 Platelet Estimate DECREASED Plt Morphology Comment NORMAL RBC Morphology NOTED Polychromasia 1+ (0-2) Tear Drop Cells 1+ (0-2) Ovalocytes 1+ (5-14) Magnolia Cells 1+ (0-2) Schistocytes 1+ (0-2) ESR 13 VBG pH 7.40 VBG pCO2 22 VBG pO2 61 VBG HCO3 14 L VBG Base Excess -9.1 Sodium 128 L Potassium 3.6 Chloride 104 Carbon Dioxide 14 L Anion Gap 14 BUN 45 H Creatinine 1.17 Estim Creat Clear Calc 90.9 Estimated GFR > 60 Random Glucose 143 H Haptoglobin 121 Osmolality 280 L Calcium 7.2 L D Magnesium 1.8 Iron 31 L TIBC 104 L % Saturation 30 Unsat Iron Binding 73 Ammonia 34 Lactate Dehydrogenase 156 Vitamin B12 1161 H Folate 11.7 Random Vancomycin 17.3 Blood Type A Positive Antibody Screen NEGATIVE Crossmatch See Detail Progress Note: A&P Assessment and plan (1) Substance use disorder: Status: Acute (2) Tricuspid valve vegetation: Status: Acute (3) Severe tricuspid regurgitation: Status: Acute (4) Aortic valve endocarditis: Status: Acute (5) Intracranial septic embolism: Status: Acute Plan 29-year-old gentleman with substance use disorder who had tricuspid valve endocarditis in June 2024 and was at [facility]. He was seen by Cardiothoracic surgery and underwent AngioVac aspiration of the tricuspid vegetation. He has severe tricuspid valve regurgitation. He also had septic arthritis with concern for iliopsoas abscess at that time. He had acute glomerular nephritis leading to acute renal failure requiring hemodialysis. He also has reported history of cirrhosis of liver with portal hypertension and postural gastropathy with GI bleed. He has background of juvenile rheumatoid arthritis. Also hepatitis-C positive. He presented to us with suicidal ideation. He is found to be bacteremic with Gram-positive cocci in chains as well as Gram-negative rods. He was quite unkempt on admission. Echocardiography showed moderate RV dilation with severe tricuspid valve regurgitation with complete destruction of the tricuspid valve. There is also close to 1 cm vegetation on the right coronary cusp of aortic valve with thickening of the aortic root concerning for aortic root abscess. I had a detailed discussion with Cardiothoracic surgery at [facility]. He was seen in consultation in June by Dr. Boone and subsequently underwent AngioVac with Dr. Killian. I had a group discussion with them along with the on-call Cardiothoracic surgery and Dr. Kennedy and it was decided that the patient is not a surgical candidate. Since admission his mental status has changed and CT scan is showing septic embolus to the left frontal lobe. His right chest wall PermCath was removed due to bacteremia. Multiple complex issues going on. He is not a surgical candidate as mentioned above and overall has a poor prognosis. He has should have goals of care discussion and his code status should be changed to do not resuscitate. If mental status does not improve or he takes a turn for worse then given multiple comorbidities we should consider comfort measures on him. We will follow along with you. Thank you for allowing me to participate in the care of your patient. Please feel free to contact me if you have any questions. Time Spent With Patient Time: Total time managing care of this patient today ____ minutes. Progress Note: Quality Stroke Does the patient have a stroke diagnosis?: No Reason for No Anti-thrombotic by Day Two: Contraindicated (low platelet count ) Procedures Date of Service Date of Service: 10/13/24
[2024-10-13 12:22] LABS: Anion Gap 12 (12-20); Blood Urea Nitrogen 37 mg/dL (9-16); Calcium 7.5 mg/dL (8.4-10.2); Carbon Dioxide 13 mmol/L (22-29); Chloride 108 mmol/L (96-108); Creatinine Clr Calc Pharmacy 85.1; Estimated Glomerular Filt Rate > 60; Potassium 3.5 mmol/L (3.3-5.1); Sodium 129 mmol/L (135-145)
--- NOTE | 2024-10-13 12:33 | P.ACPN_ITS ---
Advanced Care Planning Note Advanced Care Planning Note Discussed with: family member(s) Time spent (in minutes): 30 Narrative: Was able to obtain phone number for patient's father Nikolas [phone] who said he needed to discuss the patient's care with the patient's mother. Patient mother Gorge [phone] called to discuss goals of care, she states she is the patient's HCP. 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 She reports that he was on palliative care at the end of that hospitalization. I updated her with current active medical conditions including tricuspid valve endocarditis with destruction of the tricuspid valve as well as aortic valve endocarditis with concern for aortic root abscess, polymicrobial bacteremia, splenic infarct and septic emboli to the lungs and brain as well as underlying liver cirrhosis. She understands that given the severity of his heart valve infections and liver c irrhosis he is not a surgical candidate. She would not want him to have CPR or intubation as she understands that he would likely not survive and would likely cause more harm then benefit. She does not want him to suffer and elects to electronic data interchange specialist to comfort measures only. She understands that medical management will be stopped including antibiotics and comfort medications including morphine and ativan will be initiated. Problems Discussed (1) Aortic valve endocarditis: (2) Endocarditis of tricuspid valve: (3) Thrombocytopenia: (4) Intracranial septic embolism: (5) Septic pulmonary embolism: (6) Hyponatremia: (7) Tricuspid valve vegetation: (8) Severe tricuspid regurgitation: (9) Substance use disorder:
[2024-10-13 13:38] LABS: HCV Log PCR <1.18 NOT DETECTED Log IU/mL (NOT DETECTED); HepC Viral Load <15 NOT DETECTED IU/mL (NOT DETECTED)
[2024-10-13] MEDS: chlorproMAZINE HCl 25 MG in 0.9 % Sodium Chloride 50 ML 51 MG IV (16:39)
[2024-10-13] MEDS: 0.9 % Sodium Chloride Flush 3 ML SYRINGE IVFLUSH (16:49)
[2024-10-13] MEDS: LORazepam 2 MG/ML VIAL 0.5 MG IVPUSH (22:21)
[2024-10-14] VITALS (8 sets, daily range): BP systolic 112; BP diastolic 66; PULSE 113–134; RESP 20–32; TEMP 36.6; O2SAT 99
[2024-10-14] MEDS: 0.9 % Sodium Chloride Flush 3 ML SYRINGE IVFLUSH ×2 (00:22→19:50)
[2024-10-14] MEDS: LORazepam 2 MG/ML VIAL 0.5 MG IVPUSH ×3 (03:00→15:53)
--- NOTE | 2024-10-14 05:28 | PC.NURSE ---
Pt family contact phone numbers: Nikolas (father): [phone] Shavon (mother?): [phone] Joshua (brother): [phone]
--- NOTE | 2024-10-14 07:49 | PC.NURSE ---
Addendum entered by Chauncey Gallardo RN 10/14/24 18:09: supervisor front, main lobby and security informed pt's girlfriend Tatyana is restricted from visitation d/t history of bringing illicit drugs into the hospital for the pt. pt's HCP/parent confirmed these past events and informed staff that she should not be allowed to enter pt's room. pt requested to go out side with family in a wheelchair. pt's visitors stated he wants to go outside so he can smoke. pt was informed of [facility] policy and that smoking is not allowed on hospital grounds. family at bedside assisting with care throughout the shift. Addendum entered by Chauncey Gallardo RN 10/14/24 08:15: pt refusing care; reposition, bathing, cleaning of incont. episodes, etc. pt's family member at bedside. Original Note: [facility] contacted, declined pt. ref # [id number]
[2024-10-14] MEDS: chlorproMAZINE HCl 25 MG in 0.9 % Sodium Chloride 50 ML 51 MG IV (13:49)
--- NOTE | 2024-10-14 13:55 | MHC.CM.PN ---
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 She lives in [place], [place], which is about 4 hrs from here. She would like him to go there for care at [facility] [phone] if possible. CM to call on Tuesday to inquire.
--- NOTE | 2024-10-14 14:35 | HO.PM.IMPN ---
Subjective Subjective Date of Service: 10/14/24 Interval History: Seen and examined this morning Follow-up for endocarditis, bacteremia Patient awake, appears comfortable Review of Systems Review of Systems: Yes all other systems are reviewed and are negative Constitutional Constitutional: Denies chills and Denies fever(s) Physical Exam Vital Signs: Vital Signs: Last Vital Signs Temp 97.9 F 10/14/24 00:00 Pulse 121 H 10/14/24 07:55 Resp 22 H 10/14/24 09:27 BP 112/66 10/14/24 00:00 Pulse Ox 99 10/14/24 00:00 O2 Del Method Room Air 10/14/24 00:00 BMI result Body Mass Index 18.9 Const: General: comfortable and no acute distress Objective Data Active Medications Acetaminophen (Acetaminophen 325 Mg Tablet) 650 mg PO Q4H PRN PRN Reason: Fever >/= 100, Pain, mild 1-3 Albuterol/Ipratropium (Albuterol/Iprat 2.5/0.5mg 3 Ml Ampul.Neb) 3 ml INHALE Q4H PRN PRN Reason: Shortness of Breath/Wheezing Calcium Carbonate (Calcium Carbonate 750 Mg Tab.Chew) 750 mg PO Q4H PRN PRN Reason: Heartburn Cyclobenzaprine HCl (Cyclobenzaprine Hcl 10 Mg Tablet) 10 mg PO BEDTIME PRN PRN Reason: Muscle Spasm Gabapentin (Gabapentin 100 Mg Capsule) 100 mg PO TID SARAH Haloperidol Lactate (Haloperidol Lactate 5 Mg/Ml Vial) 0.5 mg IVPUSH Q4H PRN PRN Reason: Delirium Chlorpromazine HCl 25 mg/ (Sodium Chloride) 51 mls @ 51 mls/hr IV ONCE ONE Stop: 10/14/24 14:59 Last Admin: 10/14/24 13:49 Dose: 51 mls/hr Documented By: ANDREW Lorazepam (Lorazepam 2 Mg/Ml Vial) 0.5 mg IVPUSH Q4H PRN PRN Reason: Myoclonic twitching/anxiety Last Admin: 10/14/24 08:10 Dose: 0.5 mg Documented By: ANDREW Magnesium Hydroxide (Milk Of Magnesia 30 Ml Oral.Susp) 30 ml PO DAILY PRN PRN Reason: Constipation Melatonin (Melatonin 3 Mg Tablet) 6 mg PO BEDTIME PRN PRN Reason: Insomnia Morphine Sulfate (Morphine Sulfate 2 Mg/Ml Cartridge) 2 mg IVPUSH Q1H PRN PRN Reason: Pain, Severe (7-10)/ RR>/=24 Last Admin: 10/14/24 14:05 Dose: 2 mg Documented By: ANDREW Ondansetron HCl (Ondansetron Hcl 4 Mg/2 Ml Vial) 4 mg IVPUSH Q8H PRN PRN Reason: Nausea and Vomiting Ondansetron HCl (Ondansetron Odt 4 Mg Tab.Rapdis) 4 mg TRANSLINGU Q8H PRN PRN Reason: Nausea and Vomiting Scopolamine (Scopolamine 1.5 Mg Patch.Td.3) 1.5 mg TRANSDERMA Q72H [facility] Last Admin: 10/13/24 13:28 Dose: 1.5 mg Documented By: JOANNA Sodium Chloride (0.9 % Sodium Chloride Flush 3 Ml Syringe) 3 ml IVFLUSH QSHIFT [facility] Last Admin: 10/14/24 13:12 Dose: Not Given Documented By: ANDREW Non-Admin Reason: Previously Administered Labs 10/13/24 11:30 10/13/24 11:30 Microbiology Microbiology Results: Microbiology 10/12/24 16:55 Blood Culture - Preliminary Blood - Central Line Prelim: GPC Gram Stain only Prelim: GNR Gram Stain only 10/12/24 16:55 Blood Culture - Preliminary Blood - Central Line Prelim: GPC Gram Stain only Prelim: GNR Gram Stain only 10/11/24 20:22 Blood Culture - Preliminary Blood - Venous Enterococcus/Streptococcus sp Gram negative brenna 10/11/24 20:22 Blood Culture - Preliminary Blood - Venous Enterococcus/Streptococcus sp Gram negative brenna 10/12/24 16:10 Catheter Tip Culture - Preliminary Catheter Tip - Other Gram negative brenna Assessment and Plan (1) Substance use disorder: Status: Acute (2) Tricuspid valve vegetation: Status: Acute (3) Severe tricuspid regurgitation: Status: Acute (4) Endocarditis of tricuspid valve: Status: Acute (5) Aortic valve endocarditis: Status: Acute (6) Pericardial effusion: Status: Acute (7) Intracranial septic embolism: Status: Acute (8) Septic pulmonary embolism: Status: Acute (9) Hepatitis C antibody positive: Status: Acute (10) Cirrhosis of liver: Status: Acute Plan This is a 29-year-old male with significant past medical history to include recent hospitalization at [facility] with discharge 09/14/2024 after 2 months of hospital stay diagnosed with sepsis, pyogenic arthritis of left hip, hyponatremia, tachycardia, left hip joint effusion, bilateral cavitary pulmonary embolism, thrombocytopenia, acute hypoxic respiratory failure, multifocal pneumonia, GI bleed secondary to portal hypertenisve gastropathy, hepatitis-C untreated, 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 Patient being admitted for multiple medical problems. Please note discharge summary from [facility] dated 09/14/2024 is available in patient's medical record. 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, infected PermCath, septic emboli to lungs and brain, and septic arthritis/osteomyelitis of the left hip Endocarditis of tricuspid valve and aortic valve septic pulmonary emboli due to endocarditis Septic emboli to brain Hyponatremia Septic Arthritis of Left Hip (past admission [facility]; refused surgical intervention during that admission) Toxic metabolic Encephalopathy ESRD on HD (infected permcath removed 10/12) Anemia secondary to end-stage renal disease Thrombocytopenia Hepatitis-C with liver cirrhosis/ portal hypertension Substance Use Disorder with active IVDU moderate protein calorie malnutrition intractable hiccups - s/p thorazine; started on gabapentin (baclofen or metoclopramide are alternatives if no improvement) Initially treated with antibiotics Discussed with Cardiology who discussed with Cardiac surgery at [facility] patient is not a candidate for surgery; he would not survive any surgical procedure for the heart antibiotics not likely curative given extent of disease patient continually declining labs, imaging and other interventions due to encephalopathy, septic emboli to brain, patient did not have ability to make medical decisions. Antibiotics have been discontinued and he has been changed to comfort measures/palliative care per his HCP Mom Gorge and family continue comfort meds Quality Stroke Does the patient have a stroke diagnosis?: No Reason for No Anti-thrombotic by Day Two: Contraindicated (low platelet count ) VTE Prior VTE?: No VTE Risk Level:: Medical - moderate - high VTE Device Contraindication: N/A - Device Ordered VTE Drug Contraindication: N/A - Med Ordered
[2024-10-15] VITALS (7 sets, daily range): PULSE 115–130; RESP 20–28
--- NOTE | 2024-10-15 08:17 | HO.PM.IMPN ---
Subjective Subjective Date of Service: 10/15/24 Interval History: Patient seen and examined this morning, seen in follow up for endocarditis and bacteremia. Patient is awake and alert, appears comfortable. Visiting with his family. Has not eaten in the past couple of days, drinking. Wants to go home. Review of Systems Denies any shortness of breath, chest pain, dizziness, lightheadedness, abdominal pain or discomfort, nausea vomiting or diarrhea Physical Exam Exam: Exam: CONST: Alert and oriented, in NAD. Appears chronically ill HEENT: Normocephalic, atraumatic, MMM RESP: Lungs clear, RRR even and regular HEART:,RRR, S1, S2. No murmur, no edema GI:Abdomen Soft NT, ND. + BS times four :Deferred SKIN: Warm dry and intact, no visible lesions or rashes NEURO: Sensation intact. Speech clear PSYCH: Normal affect, denies anxiety. Vital Signs: Vital Signs: Last Vital Signs Temp 97.9 F 10/14/24 00:00 Pulse 115 H 10/15/24 08:00 Resp 22 H 10/15/24 08:00 BP 112/66 10/14/24 00:00 Pulse Ox 99 10/14/24 00:00 O2 Del Method Room Air 10/14/24 00:00 BMI result Body Mass Index 18.9 Objective Data Active Medications Acetaminophen (Acetaminophen 325 Mg Tablet) 650 mg PO Q4H PRN PRN Reason: Fever >/= 100, Pain, mild 1-3 Calcium Carbonate (Calcium Carbonate 750 Mg Tab.Chew) 750 mg PO Q4H PRN PRN Reason: Heartburn Cyclobenzaprine HCl (Cyclobenzaprine Hcl 10 Mg Tablet) 10 mg PO BID PRN PRN Reason: Muscle Spasm Gabapentin (Gabapentin 100 Mg Capsule) 100 mg PO TID [facility] Last Admin: 10/14/24 19:50 Dose: 100 mg Documented By: BRENNAN Haloperidol Lactate (Haloperidol Lactate 5 Mg/Ml Vial) 0.5 mg IVPUSH Q4H PRN PRN Reason: Delirium Hydromorphone HCl (Hydromorphone Hcl 1 Mg/Ml Syringe) 1 mg IVPUSH Q2H PRN; Protocol PRN Reason: Pain, Severe (Pain Scale 7-10) Last Admin: 10/15/24 03:51 Dose: 1 mg Documented By: BRENNAN Lorazepam (Lorazepam 2 Mg/Ml Vial) 0.5 mg IVPUSH Q4H PRN PRN Reason: Myoclonic twitching/anxiety Last Admin: 10/14/24 15:53 Dose: 0.5 mg Documented By: ANDREW Magnesium Hydroxide (Milk Of Magnesia 30 Ml Oral.Susp) 30 ml PO DAILY PRN PRN Reason: Constipation Melatonin (Melatonin 3 Mg Tablet) 6 mg PO BEDTIME PRN PRN Reason: Insomnia Ondansetron HCl (Ondansetron Hcl 4 Mg/2 Ml Vial) 4 mg IVPUSH Q8H PRN PRN Reason: Nausea and Vomiting Ondansetron HCl (Ondansetron Odt 4 Mg Tab.Rapdis) 4 mg TRANSLINGU Q8H PRN PRN Reason: Nausea and Vomiting Scopolamine (Scopolamine 1.5 Mg Patch.Td.3) 1.5 mg TRANSDERMA Q72H [facility] Last Admin: 10/13/24 13:28 Dose: 1.5 mg Documented By: JOANNA Sodium Chloride (0.9 % Sodium Chloride Flush 3 Ml Syringe) 3 ml IVFLUSH QSHIFT [facility] Last Admin: 10/14/24 19:50 Dose: 3 ml Documented By: BRENNAN Labs 10/13/24 11:30 10/13/24 11:30 Microbiology Microbiology Results: Microbiology 10/12/24 16:55 Blood Culture - Preliminary Blood - Central Line Enterococcus/Streptococcus sp Gram negative brenna 10/11/24 20:22 Blood Culture - Final Blood - Venous Enterococcus faecalis Pseudomonas aeruginosa 10/11/24 20:22 Blood Culture - Final Blood - Venous Enterococcus faecalis Pseudomonas aeruginosa 10/12/24 16:10 Catheter Tip Culture - Final Catheter Tip - Other Pseudomonas aeruginosa 10/12/24 16:55 Blood Culture - Preliminary Blood - Central Line Prelim: GPC Gram Stain only Prelim: GNR Gram Stain only Assessment and Plan (1) Endocarditis: Status: Acute (2) Anemia: Status: Acute Plan This is an unfortunate 29-year-old male with significant PMH including recent 2 month hospitalization at [facility] with discharge 09/14/2024 diagnosed with sepsis, pyogenic arthritis of left hip, hyponatremia, tachycardia, left hip joint effusion, bilateral cavitary pulmonary embolism, thrombocytopenia, acute hypoxic respiratory failure, multifocal pneumonia, GI bleed secondary to portal hypertenisve gastropathy, hepatitis-C untreated, 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 Continued care for multiple medical problems. Please note discharge summary from [facility] dated 09/14/2024 is available in patient's medical record. 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, infected PermCath, septic emboli to lungs and brain, and septic arthritis/osteomyelitis of the left hip Endocarditis of tricuspid valve and aortic valve/Septic pulmonary emboli due to endocarditis/Septic emboli to brain/Septic Arthritis of Left Hip (past admission [facility];refused surgical intervention during that admission) Toxic metabolic Encephalopathy ESRD on HD (infected permcath removed 10/12) No longer receiving dialysis treatments Anemia secondary to end-stage renal disease Thrombocytopenia Hepatitis-C with liver cirrhosis/ portal hypertension Substance Use Disorder with active IVDU Moderate protein calorie malnutrition-Started Ensure TID, Poor po appetite Intractable hiccups - s/p thorazine; started on gabapentin (baclofen or metoclopramide are alternatives if no improvement)-Stable He was initially treated with antibiotics Cardiology discussed with Cardiac surgery team at [facility], patient is not a candidate for surgery; he would not survive any surgical procedure for the heart Antibiotics not likely curative given extent of disease. Patient intermittantly declining labs, imaging and other interventions Due to encephalopathy, septic emboli to brain, patient did not have ability to make medical decisions. Antibiotics have been discontinued and he has been changed to comfort measures/palliative care per his HCP Mom Gorge and family Continue medications for comfort and to alleviate symptoms Ensure t.i.d. Hyponatremia Last reported sodium level 129, patient is not taking much p.o. CODE Status:Comfort measures only DNR/DNI Plan to discharge home with palliative care. Case management involved Quality Stroke Does the patient have a stroke diagnosis?: No Reason for No Anti-thrombotic by Day Two: Contraindicated (low platelet count ) VTE Prior VTE?: No VTE Risk Level:: Medical - moderate - high VTE Device Contraindication: N/A - Device Ordered VTE Drug Contraindication: N/A - Med Ordered
[2024-10-15] MEDS: 0.9 % Sodium Chloride Flush 3 ML SYRINGE IVFLUSH ×2 (08:46→22:42)
[2024-10-15] MEDS: LORazepam 2 MG/ML VIAL 0.5 MG IVPUSH (11:44)
--- NOTE | 2024-10-15 12:23 | MHC.CM.PN ---
Addendum entered by Roshni Gross RN 10/15/24 13:48: CALEB #[phone] Addendum entered by Roshni Gross RN 10/15/24 13:46: PT NOW ABLE TO PROVIDE S.O./HCP'S CALEB PHONE #, CM ATTEMPTED TO CONTACT KIMMY Lujan HOWEVER BOTH TIMES MESSAGE NUMBER NOT IN SERVICE . Original Note: EMR REVIEWED, PER MD NOTE FROM 10/14 PT DOES NOT HAVE CAPACITY TO MAKE MEDICAL DECISIONS, CM RECEIVED HCP FROM [facility], [facility] IS S.O. KIMMY MURRAY HOWEVER THERE IS NO CONTACT NUMBER AND NO NUMBER ON FILE. PT HAS NOT BEEN ABLE TO PROVIDE CM WITH CONTACT NUMBER. THIS CM HAS READ THROUGH HOSPITALIST/SPECIALIST NOTES AND HAS NOT FOUND NUMBER. PT'S MOTHER ALTERNATE HCP AT BEDSIDE AND DOES NOT FEEL [facility]/S.Delmi TATE IS COMPETENT AND HAS BEEN BANNED FROM VISITING D.T HER BRINGING PT ILLICIT DRUGS TO [facility] LAST ADMISSION. CM DISCUSSED W/CM DIRECTOR AND LEA WOULD HAVE TO RELINQUISH ACTING [facility] OR IF CM IS UNABLE TO CONTACT HER. MELINDA SPOKE W/COMMERCIAL PROPERTY MANAGER MARISELA [phone] AT [facility] IN [facility] AND MARISELA REQUESTS CM SEND REFERRAL VIA [facility], REFERRAL PLACED AND CM AWAITING RESPONSE. MELINDA ALSO HAS ENQUIRED W/[facility] TO DETERMINE AMBULANCE TRANSPORTATION [facility] AND PER PT'S MOTHER/ALT HCP APPROXIMATELY 4HRS AWAY.
[2024-10-16] MEDS: 0.9 % Sodium Chloride Flush 3 ML SYRINGE IVFLUSH ×3 (07:18→21:11)
[2024-10-16 07:40] VITALS: BP 110/60; PULSE 100; RESP 18; TEMP 37.1; O2SAT 97
--- NOTE | 2024-10-16 08:29 | P.PNIM_ITS ---
Subjective Subjective Date of Service: 10/16/24 Interval History: Patient is seen and examined, discussed with nursing. Seen for follow up multimicrobial bacteremia and endocarditis, now on [employer]. On exam he appears comfortable. Drinking a Redbull, mother at bedside. Review of Systems Denies any shortness of breath, chest pain, dizziness, lightheadedness, abdominal pain or discomfort, nausea vomiting or diarrhea. Physical Exam 2 Exam: Exam: CONST: Alert and oriented, in NAD. Chronically ill, pale HEENT: Normocephalic, atraumatic, MMM, Eyes clear RESP: Lungs clear, RRR even and regular HEART:,RRR, S1, S2. no edema GI:Abdomen Softly distended, NT, ND. + BS times four :Deferred SKIN: Warm dry and intact, no visible lesions or rashes NEURO:CN II-XII Intact bilaterally, Speech clear PSYCH: Normal affect Vital Signs: Vital Signs: Last Vital Signs Temp 98.8 F 10/16/24 07:40 Pulse 100 10/16/24 07:40 Resp 18 10/16/24 07:40 BP 110/60 10/16/24 07:40 Pulse Ox 97 10/16/24 07:40 O2 Del Method Room Air 10/16/24 07:40 BMI result Body Mass Index 18.9 Objective Data Active Medications Acetaminophen (Acetaminophen 325 Mg Tablet) 650 mg PO Q4H PRN PRN Reason: Fever >/= 100, Pain, mild 1-3 Last Admin: 10/15/24 16:25 Dose: 650 mg Documented By: GINA Calcium Carbonate (Calcium Carbonate 750 Mg Tab.Chew) 750 mg PO Q4H PRN PRN Reason: Heartburn Cyclobenzaprine HCl (Cyclobenzaprine Hcl 10 Mg Tablet) 10 mg PO BID PRN PRN Reason: Muscle Spasm Last Admin: 10/15/24 22:40 Dose: 10 mg Documented By: ANITA Gabapentin (Gabapentin 100 Mg Capsule) 100 mg PO TID SARAH Last Admin: 10/15/24 22:03 Dose: 100 mg Documented By: ANITA Haloperidol Lactate (Haloperidol Lactate 5 Mg/Ml Vial) 0.5 mg IVPUSH Q4H PRN PRN Reason: Delirium Last Admin: 10/15/24 23:13 Dose: 0.5 mg Documented By: ANITA Hydromorphone HCl (Hydromorphone Hcl 1 Mg/Ml Syringe) 2 mg IVPUSH Q1H PRN; Protocol PRN Reason: Pain, Severe (Pain Scale 7-10) Lorazepam (Lorazepam 2 Mg/Ml Vial) 0.5 mg IVPUSH Q4H PRN PRN Reason: Myoclonic twitching/anxiety Last Admin: 10/15/24 11:44 Dose: 0.5 mg Documented By: KEKE Magnesium Hydroxide (Milk Of Magnesia 30 Ml Oral.Susp) 30 ml PO DAILY PRN PRN Reason: Constipation Melatonin (Melatonin 3 Mg Tablet) 6 mg PO BEDTIME PRN PRN Reason: Insomnia Ondansetron HCl (Ondansetron Hcl 4 Mg/2 Ml Vial) 4 mg IVPUSH Q8H PRN PRN Reason: Nausea and Vomiting Ondansetron HCl (Ondansetron Odt 4 Mg Tab.Rapdis) 4 mg TRANSLINGU Q8H PRN PRN Reason: Nausea and Vomiting Oxycodone HCl (Oxycodone Hcl Er 10 Mg Tab.Er.12h) 10 mg PO BID [facility] Scopolamine (Scopolamine 1.5 Mg Patch.Td.3) 1.5 mg TRANSDERMA Q72H [facility] Last Admin: 10/13/24 13:28 Dose: 1.5 mg Documented By: JOANNA Sodium Chloride (0.9 % Sodium Chloride Flush 3 Ml Syringe) 3 ml IVFLUSH QSHIFT [facility] Last Admin: 10/16/24 07:18 Dose: 3 ml Documented By: PHANLYM Labs 10/13/24 11:30 10/13/24 11:30 Microbiology Microbiology Results: Microbiology 10/12/24 16:55 Blood Culture - Preliminary Blood - Central Line Enterococcus/Streptococcus sp Gram negative brenna 10/12/24 16:55 Blood Culture - Preliminary Blood - Central Line Enterococcus/Streptococcus sp Gram negative brenna 10/11/24 20:22 Blood Culture - Final Blood - Venous Enterococcus faecalis Pseudomonas aeruginosa 10/11/24 20:22 Blood Culture - Final Blood - Venous Enterococcus faecalis Pseudomonas aeruginosa 10/12/24 16:10 Catheter Tip Culture - Final Catheter Tip - Other Pseudomonas aeruginosa Assessment and Plan (1) Endocarditis: Status: Acute (2) Anemia: Status: Acute Plan This is an unfortunate 29-year-old male with significant PMH including recent 2 month hospitalization at [facility] with discharge 09/14/2024 diagnosed with sepsis, pyogenic arthritis of left hip, hyponatremia, tachycardia, left hip joint effusion, bilateral cavitary pulmonary embolism, thrombocytopenia, acute hypoxic respiratory failure, multifocal pneumonia, GI bleed secondary to portal hypertensive gastropathy, hepatitis-C untreated, 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 Continued care for multiple medical problems. Please note discharge summary from [facility] dated 09/14/2024 is available in patient's medical record. 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 Anemia secondary to end-stage renal disease/Thrombocytopenia-No further labs due to [employer]. Hepatitis-C with liver cirrhosis/ portal hypertension Substance Use Disorder with active IVDU-Previously taking Methadone, no longer taking. Moderate protein calorie malnutrition-Started Ensure TID, Poor po appetite-Offer whatever he wants to eat. Intractable hiccups - s/p thorazine; started on gabapentin (baclofen or metoclopramide are alternatives if no improvement)-Stable, no hiccups on exam. Endocarditis of tricuspid valve-MSSA Bacteremia- He was initially treated with antibiotics. Cardiology discussed with Cardiac surgery team at [facility], patient is not a candidate for surgery; he would not survive any surgical procedure for the heart Antibiotics not likely curative given extent of disease. Patient intermittantly declining labs, imaging and other interventions. No further lab draws. Patient was previous receiving palliative care services during last [facility] admission. Due to encephalopathy, septic emboli to brain, patient did not have ability to make medical decisions. Antibiotics have been discontinued and he has been changed to comfort measures/palliative care per his HCP Mom Gorge [phone] and family. Plan to transition to [place] to be near family if possible. Case management involved. Continue medications for comfort and to alleviate symptoms. Start Oxycontin BID and PRN Oxycodone for moderate pain. Dilaudid 2 mgs IV every 3 hours PRN. Ensure t.i.d. Hyponatremia Last reported sodium level 129, patient is not taking much p.o. No further labs. CODE Status:Comfort measures only DNR/DNI Plan to discharge with Hospice LOC. Case management involved for disposition. Quality Stroke Does the patient have a stroke diagnosis?: No Reason for No Anti-thrombotic by Day Two: Contraindicated (low platelet count ) VTE Prior VTE?: No VTE Risk Level:: Medical - moderate - high VTE Device Contraindication: N/A - Device Ordered VTE Drug Contraindication: N/A - Med Ordered
[2024-10-16] MEDS: oxyCODONE HCl ER 10 MG TAB.ER.12H PO ×2 (09:06→21:10)
--- NOTE | 2024-10-16 09:09 | MHC.CM.PN ---
Addendum entered by Roshni Gross RN 10/16/24 14:58: CM CORRESPONDING W/MARISELA AT [facility] VIA EMAIL, MARISELA REPORTING THAT BUSINESS OFFICE CHECKED W/MEDICAID AND THEY WILL NOT BE ABLE TO SWITCH PT TO [place] MEDICAID AND [facility] WILL NOT COVER ANY SERVICES. MARISELA WILL GET BACK TO DETERMINE IF THERE WILL BE ANYTHING ELSE THEY CAN DO OR A SLIDING SCALE AND WILL FOLLOW UP W/CM TOMORRROW. Addendum entered by Roshni Gross RN 10/16/24 10:21: CM STILL AWAITING RESPONSE FROM [facility], PER HOSPITALIST AND PT'S MOTHER BACK UP PLAN IS FOR PT TO GO TO A SNF IN [facility] EITHER IN [place] OR NEAR PT'S FATHERS HOME IN [place]. Addendum entered by Roshni Gross RN 10/16/24 09:11: CM ALSO RECEIVED VERIFICATION [facility] RECEIVED REFERRAL AND STILL WAITING ON DETERMINATION WHETHER THEY CAN TAKE PT, CM ALSO ATTEMPTED TO CONTACT [facility] ACCOUNTS RECEIVABLE ACCOUNTANT MARISELA t [phone], NO ANSWER AND DETAILED MESSAGE LEFT. Original Note: CM RE-ATTEMPTED TO CONTACT PT'S S.O. LEA MURRAY AT NUMBER FOR 3RD TIME [phone], NUMBER REMAINS NOT IN SERVICE . CM WILL CONT DEFERRING TO ALT HCP PT'S MOTHER LEELA D/T UNABLE TO REACH LEA BY PHONE.
[2024-10-16 15:27] VITALS: RESP 20
[2024-10-16] MEDS: oxyCODONE HCl Immed Release 5 MG TABLET PO (15:49)
[2024-10-17 07:03] VITALS: RESP 16
[2024-10-17] MEDS: 0.9 % Sodium Chloride Flush 3 ML SYRINGE IVFLUSH ×2 (07:31→15:54)
[2024-10-17] MEDS: oxyCODONE HCl ER 10 MG TAB.ER.12H PO ×2 (08:36→21:30)
[2024-10-17 09:43] VITALS: TEMP 38.1
--- NOTE | 2024-10-17 10:16 | HO.PM.IMPN ---
Subjective Subjective Date of Service: 10/17/24 Interval History: Patient is seen and examined, discussed with nursing. Seen for follow up multimicrobial bacteremia and endocarditis, now on [employer]. On exam he appears comfortable. Father at bedside Review of Systems Denies any shortness of breath, chest pain, dizziness, lightheadedness, abdominal pain or discomfort, nausea vomiting or diarrhea. Physical Exam Vital Signs: Vital Signs: Last Vital Signs Temp 100.6 F H 10/17/24 09:43 Pulse 100 10/16/24 07:40 Resp 16 10/17/24 07:03 BP 110/60 10/16/24 07:40 Pulse Ox 97 10/16/24 07:40 O2 Del Method Room Air 10/16/24 07:40 BMI result Body Mass Index 18.9 Objective Data Active Medications Acetaminophen (Acetaminophen 325 Mg Tablet) 650 mg PO Q4H PRN PRN Reason: Fever >/= 100, Pain, mild 1-3 Last Admin: 10/17/24 08:35 Dose: 650 mg Documented By: ROGERS Calcium Carbonate (Calcium Carbonate 750 Mg Tab.Chew) 750 mg PO Q4H PRN PRN Reason: Heartburn Cyclobenzaprine HCl (Cyclobenzaprine Hcl 10 Mg Tablet) 10 mg PO BID PRN PRN Reason: Muscle Spasm Last Admin: 10/15/24 22:40 Dose: 10 mg Documented By: ANITA Gabapentin (Gabapentin 100 Mg Capsule) 100 mg PO TID SARAH Last Admin: 10/17/24 08:34 Dose: 100 mg Documented By: ROGERS Haloperidol Lactate (Haloperidol Lactate 5 Mg/Ml Vial) 0.5 mg IVPUSH Q4H PRN PRN Reason: Delirium Last Admin: 10/15/24 23:13 Dose: 0.5 mg Documented By: ANITA Hydromorphone HCl (Hydromorphone Hcl 1 Mg/Ml Syringe) 2 mg IVPUSH Q2H PRN; Protocol PRN Reason: Pain, Severe (Pain Scale 7-10) Last Admin: 10/17/24 09:39 Dose: 2 mg Documented By: ROGERS Lorazepam (Lorazepam 2 Mg/Ml Vial) 0.5 mg IVPUSH Q4H PRN PRN Reason: Myoclonic twitching/anxiety Last Admin: 10/15/24 11:44 Dose: 0.5 mg Documented By: KEKE Magnesium Hydroxide (Milk Of Magnesia 30 Ml Oral.Susp) 30 ml PO DAILY PRN PRN Reason: Constipation Melatonin (Melatonin 3 Mg Tablet) 6 mg PO BEDTIME PRN PRN Reason: Insomnia Ondansetron HCl (Ondansetron Hcl 4 Mg/2 Ml Vial) 4 mg IVPUSH Q8H PRN PRN Reason: Nausea and Vomiting Ondansetron HCl (Ondansetron Odt 4 Mg Tab.Rapdis) 4 mg TRANSLINGU Q8H PRN PRN Reason: Nausea and Vomiting Oxycodone HCl (Oxycodone Hcl Er 10 Mg Tab.Er.12h) 10 mg PO BID [facility] Last Admin: 10/17/24 08:36 Dose: 10 mg Documented By: ROGERS Oxycodone HCl (Oxycodone Hcl Immed Release 5 Mg Tablet) 10 mg PO Q4H PRN PRN Reason: Pain, Moderate(Pain Scale 4-6) Scopolamine (Scopolamine 1.5 Mg Patch.Td.3) 1.5 mg TRANSDERMA Q72H [facility] Last Admin: 10/16/24 13:55 Dose: 1.5 mg Documented By: SHEILA Sodium Chloride (0.9 % Sodium Chloride Flush 3 Ml Syringe) 3 ml IVFLUSH QSHIFT [facility] Last Admin: 10/17/24 07:31 Dose: 3 ml Documented By: ROGERS Labs 10/13/24 11:30 10/13/24 11:30 Microbiology Microbiology Results: Microbiology 10/12/24 16:55 Blood Culture - Final Blood - Central Line Enterococcus faecalis Pseudomonas aeruginosa 10/12/24 16:55 Blood Culture - Final Blood - Central Line Enterococcus faecalis Pseudomonas aeruginosa Assessment and Plan (1) Endocarditis: Status: Acute (2) Anemia: Status: Acute Plan This is an unfortunate 29-year-old male with significant PMH including recent 2 month hospitalization at 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 Continued care for multiple medical problems. Please note discharge summary from [facility] dated 09/14/2024 is available in patient's medical record. 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;refused surgical intervention during that admission) Toxic metabolic Encephalopathy ESRD on HD (infected permcath removed 10/12) No longer receiving dialysis treatments-No further labs due to [employer]. Anemia secondary to end-stage renal disease/Thrombocytopenia-No further labs due to [employer]. Hepatitis-C with liver cirrhosis/ portal hypertension Substance Use Disorder with active IVDU-Previously taking Methadone, no longer taking. Moderate protein calorie malnutrition-Started Ensure TID, Poor po appetite-Offer whatever he wants to eat. Intractable hiccups - s/p thorazine; started on gabapentin (baclofen or metoclopramide are alternatives if no improvement)-Stable, no hiccups on exam. Endocarditis of tricuspid valve-MSSA Bacteremia- He was initially treated with antibiotics. Cardiology discussed with Card[place] [facility] patient is not a candidate for surgery; he would not survive any surgical procedure for the heart Antibiotics not likely curative given extent of disease. Patient intermittantly declining labs, imaging and other interventions. No further lab draws. Patient was previous receiving palliative care services during last [facility] admission. Due to encephalopathy, septic emboli to brain, patient did not have ability to make medical decisions. Antibiotics have been discontinued and he has been changed to comfort measures/palliative care per his HCP Mom Gorge and family. Plan to transition to [place] to be near family if possible. Case management involved. Continue medications for comfort and to alleviate symptoms. Start Oxycontin BID and PRN Oxycodone for moderate pain. Dilaudid 2 mgs IV every 3 hours PRN. Ensure t.i.d. Hyponatremia Last reported sodium level 129, patient is not taking much p.o. No further labs. CODE Status:Comfort measures only DNR/DNI Discussed with father and mother, 1st HCP is not reachable Plan to discharge with Hospice LOC. Case management involved for disposition. Quality Stroke Does the patient have a stroke diagnosis?: No Reason for No Anti-thrombotic by Day Two: Contraindicated (low platelet count ) VTE Prior VTE?: No VTE Risk Level:: Medical - moderate - high VTE Device Contraindication: N/A - Device Ordered VTE Drug Contraindication: N/A - Med Ordered
[2024-10-17 15:44] VITALS: RESP 16
[2024-10-17] MEDS: diazePAM 10 MG/2 ML CARTRIDGE IVPUSH (15:54)
[2024-10-17] MEDS: oxyCODONE HCl Immed Release 5 MG TABLET 10 MG PO (15:55)
--- NOTE | 2024-10-17 16:11 | MHC.CM.PN ---
Addendum entered by Roshni Gross RN 10/17/24 16:18: MARISELA ASIF'S EMAIL: [email or web address] Original Note: EMR REVIEWED, CM MET W/PT'S MOTHER LEELA AT BEDSIDE, LEELA WAS WORKING ON FIGURING OUT HOW TO TRANSPORT PT TO [facility] HOWEVER TRANSPORTATION ISSUE ESCALATED TO [facility] AND C WILL COVER COST OF BLS TRANSPORT. CM SPOKE W/[facility]IAISON AND PT PREBOOKED FOR 11ATuesday AND HAS TOLD CM NO MEDNEC IS NECESSARY. MELINDA HAS EMAILED AND SPOKE W/MARISELA PIERRE [phone] CLINICAL NURSE [employer] [facility] OF [facility] REQUESTING PEER TO PEER TO VERIFY PT'S CLINICAL ELIGIBILITY, HOSPITALIST AND THE PROFESSIONAL NURSING ASSISTANT WHO WILL BE WORKING ON DC NOTIFIED VIA TIGER AND PROVIDED W/PROVIDER GUERA GIRALDO [phone]. CM AWAITING CONFIRMATION FROM MARISELA. MELINDA CONTACTED MARISELA VIA CELL PHONE AT ABOVE #, OFFICE # [phone], FAX#[phone]
[2024-10-17 17:22] VITALS: TEMP 37.4
[2024-10-18] VITALS: TEMP 37.9
[2024-10-18] MEDS: 0.9 % Sodium Chloride Flush 3 ML SYRINGE IVFLUSH ×4 (02:13→20:12)
[2024-10-18 07:26] VITALS: BP 117/59; PULSE 138; RESP 16; O2SAT 97
[2024-10-18 09:12] VITALS: TEMP 37.7
[2024-10-18] MEDS: oxyCODONE HCl ER 10 MG TAB.ER.12H PO ×2 (09:29→20:10)
[2024-10-18 09:59] VITALS: TEMP 37.6
--- NOTE | 2024-10-18 10:11 | HO.PM.IMPN ---
Subjective Subjective Date of Service: 10/18/24 Interval History: Patient is seen and examined, discussed with nursing. Seen for follow up multimicrobial bacteremia and endocarditis, now on [employer]CH[employer]. On exam he appears comfortable. Father at bedside and mother at bedside, had a temp of 100.6 Review of Systems Denies any shortness of breath, chest pain, dizziness, lightheadedness, abdominal pain or discomfort, nausea vomiting or diarrhea. Physical Exam Vital Signs: Vital Signs: Last Vital Signs Temp 99.6 F 10/18/24 09:59 Pulse 138 H 10/18/24 07:26 Resp 16 10/18/24 07:26 BP 117/59 L 10/18/24 07:26 Pulse Ox 97 10/18/24 07:26 O2 Del Method Room Air 10/18/24 07:26 BMI result Body Mass Index 18.9 Objective Data Active Medications Acetaminophen (Acetaminophen 325 Mg Tablet) 650 mg PO Q4H PRN PRN Reason: Fever >/= 100, Pain, mild 1-3 Last Admin: 10/18/24 07:30 Dose: 650 mg Documented By: ROGERS Calcium Carbonate (Calcium Carbonate 750 Mg Tab.Chew) 750 mg PO Q4H PRN PRN Reason: Heartburn Cyclobenzaprine HCl (Cyclobenzaprine Hcl 10 Mg Tablet) 10 mg PO BID PRN PRN Reason: Muscle Spasm Last Admin: 10/15/24 22:40 Dose: 10 mg Documented By: ANITA Diazepam (Diazepam 10 Mg/2 Ml Cartridge) 10 mg IVPUSH Q4H PRN PRN Reason: Anxiety Last Admin: 10/17/24 15:54 Dose: 10 mg Documented By: ROGERS Gabapentin (Gabapentin 100 Mg Capsule) 100 mg PO TID SARAH Last Admin: 10/18/24 09:29 Dose: 100 mg Documented By: ROGERS Haloperidol Lactate (Haloperidol Lactate 5 Mg/Ml Vial) 2 mg IVPUSH Q4H PRN PRN Reason: Delirium Last Admin: 10/18/24 07:30 Dose: 2 mg Documented By: ROGERS Hydromorphone HCl (Hydromorphone Hcl 1 Mg/Ml Syringe) 2.5 mg IVPUSH Q2H PRN; Protocol PRN Reason: Pain, Severe (Pain Scale 7-10) Last Admin: 10/18/24 09:27 Dose: 2.5 mg Documented By: ROGERS Magnesium Hydroxide (Milk Of Magnesia 30 Ml Oral.Susp) 30 ml PO DAILY PRN PRN Reason: Constipation Melatonin (Melatonin 3 Mg Tablet) 6 mg PO BEDTIME PRN PRN Reason: Insomnia Naproxen (Naproxen 500 Mg Tablet) 500 mg PO Q12H PRN PRN Reason: Fever >100.4 Ondansetron HCl (Ondansetron Hcl 4 Mg/2 Ml Vial) 4 mg IVPUSH Q8H PRN PRN Reason: Nausea and Vomiting Ondansetron HCl (Ondansetron Odt 4 Mg Tab.Rapdis) 4 mg TRANSLINGU Q8H PRN PRN Reason: Nausea and Vomiting Oxycodone HCl (Oxycodone Hcl Er 10 Mg Tab.Er.12h) 10 mg PO BID [facility] Last Admin: 10/18/24 09:29 Dose: 10 mg Documented By: ROGERS Oxycodone HCl (Oxycodone Hcl Immed Release 5 Mg Tablet) 10 mg PO Q4H PRN PRN Reason: Pain, Moderate(Pain Scale 4-6) Last Admin: 10/17/24 15:55 Dose: 10 mg Documented By: ROGERS Scopolamine (Scopolamine 1.5 Mg Patch.Td.3) 1.5 mg TRANSDERMA Q72H [facility] Last Admin: 10/16/24 13:55 Dose: 1.5 mg Documented By: SHEILA Sodium Chloride (0.9 % Sodium Chloride Flush 3 Ml Syringe) 3 ml IVFLUSH QSHIFT [facility] Last Admin: 10/18/24 07:31 Dose: 3 ml Documented By: ROGERS Labs 10/13/24 11:30 10/13/24 11:30 Microbiology Microbiology Results: Microbiology 10/12/24 16:55 Blood Culture - Final Blood - Central Line Enterococcus faecalis Pseudomonas aeruginosa 10/12/24 16:55 Blood Culture - Final Blood - Central Line Enterococcus faecalis Pseudomonas aeruginosa Assessment and Plan (1) Endocarditis: Status: Acute (2) Anemia: Status: Acute Plan This is an unfortunate 29-year-old male with significant PMH including recent 2 month hospitalization at [facility] with discharge 09/14/2024 diagnosed with sepsis, pyogenic arthritis of left hip, hyponatremia, tachycardia, left hip joint effusion, bilateral cavitary pulmonary embolism, thrombocytopenia, acute hypoxic respiratory failure, multifocal pneumonia, GI bleed secondary to portal hypertensive gastropathy, hepatitis-C untreated, 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 Continued care for multiple medical problems. Please note discharge summary from [facility] dated 09/14/2024 is available in patient's medical record. 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 Hepatitis-C with liver cirrhosis/ portal hypertension Substance Use Disorder with active IVDU-Previously taking Methadone, no longer taking. Moderate protein calorie malnutrition-Started Ensure TID, Poor po appetite-Offer whatever he wants to eat. Intractable hiccups - s/p thorazine; started on gabapentin (baclofen or metoclopramide are alternatives if no improvement)-Stable, no hiccups on exam. Endocarditis of tricuspid valve-MSSA Bacteremia- He was initially treated with antibiotics. Cardiology discussed with Cardiac surgery team at [facility], patient is not a candidate for surgery; he would not survive any surgical procedure for the heart Antibiotics not likely curative given extent of disease. Patient intermittantly declining labs, imaging and other interventions. No further lab draws. Patient was previous receiving palliative care services during last [facility] admission. Due to encephalopathy, septic emboli to brain, patient did not have ability to make medical decisions. Antibiotics have been discontinued and he has been changed to comfort measures/palliative care per his HCP Mom Gorge and family. Plan to transition to [place] to be near family if possible. Case management involved. Continue medications for comfort and to alleviate symptoms. with Oxycontin BID and PRN Oxycodone for moderate pain. Dilaudid 2.5 mgs IV every 3 hours PRN. Valium for anxiety Ensure t.i.d. Hyponatremia Last reported sodium level 129, patient is not taking much p.o. No further labs. CODE Status:Comfort measures only DNR/DNI Discussed with father and mother, 1st HCP is not reachable Plan to discharge with Hospice LOC. Case management involved for disposition. Plan discussed with mother and Father at bedside Quality Stroke Does the patient have a stroke diagnosis?: No Reason for No Anti-thrombotic by Day Two: Contraindicated (low platelet count ) VTE Prior VTE?: No VTE Risk Level:: Medical - moderate - high VTE Device Contraindication: N/A - Device Ordered VTE Drug Contraindication: N/A - Med Ordered
--- NOTE | 2024-10-18 14:35 | MHC.CM.PN ---
Addendum entered by Roshni Gross RN 10/18/24 15:00: MD/RETAIL DEPARTMENT RESET NOTIFIED VIA [employer] THAT PT WILL NEED A [facility] FOR TRANSPORT/ADMISSION TO [facility]. Original Note: EMR REVIEWED, CM RECEIVED EMAIL FROM MARISELA REESE THIS AM REPORTING HE IS OFF FOR THE NEXT TWO DAYS AND CM SHOULD CONTACT [facility] [phone] TO COORDINATE TXF, HOSPITALIST COMPLETED PEER TO PEER HOWEVER THEY ARE UNABLE TO ACCEPT PT UNTIL SUNDAY 10/22 DUE TO STAFFING, PT IS PREBOOKED FOR 0900 PT WILL NEED TO ARRIVE BETWEEN 12PM-1PM. REQUESTS FROM [facility] INCLUDE PICC LINE PLACEMENT WHICH HAS BEEN ORDERED 10/18, ROMANO CATH TO BE LEFT IN PLACE AND [facility]OLST FOR TRANSPORT. PICC LINE/COPY OF MOLST SHOULD BE FAXED VIA REFERRAL, ALL OTHER COMMUNICATION SHOULD BE VIA [facility] AT NUMBER ABOVE A THEY DO NOT USE THE MESSAGING PORTION OF [employer].
[2024-10-18 15:14] VITALS: PULSE 143; RESP 26; TEMP 39.6; O2SAT 94
[2024-10-18 16:59] VITALS: TEMP 37.8
[2024-10-18] MEDS: diazePAM 10 MG/2 ML CARTRIDGE IVPUSH (22:05)
[2024-10-19] VITALS (8 sets, daily range): PULSE 122; RESP 12–24; TEMP 36.1–39.3; O2SAT 98
[2024-10-19] MEDS: diazePAM 10 MG/2 ML CARTRIDGE IVPUSH ×4 (02:05→22:43)
[2024-10-19] MEDS: 0.9 % Sodium Chloride Flush 3 ML SYRINGE IVFLUSH (09:56)
--- NOTE | 2024-10-19 11:08 | HO.PM.IMPN ---
Subjective Subjective Date of Service: 10/19/24 Interval History: According to mom had hard time with pain and fever/rigors and chills some abdominal difficult overnight and took longtime to control He seemed fairly comfortable this morning. Physical Exam Vital Signs: Vital Signs: Last Vital Signs Temp 97.0 F 10/19/24 06:46 Pulse 143 H 10/18/24 15:14 Resp 22 H 10/19/24 06:46 BP 117/59 L 10/18/24 07:26 Pulse Ox 94 10/18/24 15:14 O2 Del Method Room Air 10/18/24 15:14 BMI result Body Mass Index 18.9 Const: Other: Was sleeping comfortably when I saw him this morning Objective Data Active Medications Acetaminophen (Acetaminophen 325 Mg Tablet) 650 mg PO Q4H PRN PRN Reason: Fever >/= 100, Pain, mild 1-3 Last Admin: 10/19/24 06:40 Dose: 650 mg Documented By: TOSHIA Calcium Carbonate (Calcium Carbonate 750 Mg Tab.Chew) 750 mg PO Q4H PRN PRN Reason: Heartburn Cyclobenzaprine HCl (Cyclobenzaprine Hcl 10 Mg Tablet) 10 mg PO BID PRN PRN Reason: Muscle Spasm Last Admin: 10/15/24 22:40 Dose: 10 mg Documented By: ANITA Diazepam (Diazepam 10 Mg/2 Ml Cartridge) 10 mg IVPUSH Q4H PRN PRN Reason: Anxiety Last Admin: 10/19/24 09:53 Dose: 10 mg Documented By: TREVOR Gabapentin (Gabapentin 100 Mg Capsule) 100 mg PO TID SARAH Last Admin: 10/19/24 09:55 Dose: Not Given Documented By: TREVOR Non-Admin Reason: patient unable to take Haloperidol Lactate (Haloperidol Lactate 5 Mg/Ml Vial) 2 mg IVPUSH Q4H PRN PRN Reason: Delirium Last Admin: 10/19/24 00:03 Dose: 2 mg Documented By: TOSHIA Hydromorphone HCl (Hydromorphone Hcl 1 Mg/Ml Syringe) 2.5 mg IVPUSH Q2H PRN; Protocol PRN Reason: Pain, Severe (Pain Scale 7-10) Last Admin: 10/19/24 09:52 Dose: 2.5 mg Documented By: TREVOR Hydromorphone HCl (Hydromorphone Hcl 2 Mg/Ml Vial) 2 mg IVPUSH Q4H [facility]; Protocol Acetaminophen (Ofirmev) 1,000 mg in 100 mls @ 400 mls/hr IV Q6H PRN PRN Reason: Fever >101 Stop: 10/19/24 23:29 Magnesium Hydroxide (Milk Of Magnesia 30 Ml Oral.Susp) 30 ml PO DAILY PRN PRN Reason: Constipation Melatonin (Melatonin 3 Mg Tablet) 6 mg PO BEDTIME PRN PRN Reason: Insomnia Naproxen (Naproxen 500 Mg Tablet) 500 mg PO Q12H PRN PRN Reason: Fever >100.4 Last Admin: 10/19/24 01:43 Dose: 500 mg Documented By: TOSHIA Comments: approved early admin Ondansetron HCl (Ondansetron Hcl 4 Mg/2 Ml Vial) 4 mg IVPUSH Q8H PRN PRN Reason: Nausea and Vomiting Ondansetron HCl (Ondansetron Odt 4 Mg Tab.Rapdis) 4 mg TRANSLINGU Q8H PRN PRN Reason: Nausea and Vomiting Oxycodone HCl (Oxycodone Hcl Er 10 Mg Tab.Er.12h) 10 mg PO BID [facility] Last Admin: 10/19/24 09:55 Dose: Not Given Documented By: TREVOR Non-Admin Reason: patient unable to take Oxycodone HCl (Oxycodone Hcl Immed Release 5 Mg Tablet) 10 mg PO Q4H PRN PRN Reason: Pain, Moderate(Pain Scale 4-6) Last Admin: 10/17/24 15:55 Dose: 10 mg Documented By: ROGERS Scopolamine (Scopolamine 1.5 Mg Patch.Td.3) 1.5 mg TRANSDERMA Q72H [facility] Last Admin: 10/16/24 13:55 Dose: 1.5 mg Documented By: SHEILA Sodium Chloride (0.9 % Sodium Chloride Flush 3 Ml Syringe) 3 ml IVFLUSH QSHIFT [facility] Last Admin: 10/19/24 09:56 Dose: 3 ml Documented By: TREVOR Labs 10/13/24 11:30 10/13/24 11:30 Assessment and Plan (1) Endocarditis: Status: Acute (2) Anemia: Status: Acute Plan This is an unfortunate 29-year-old male with significant PMH including recent 2 month hospitalization at [facility] with discharge 09/14/2024 diagnosed with sepsis, pyogenic arthritis of left hip, hyponatremia, tachycardia, left hip joint effusion, bilateral cavitary pulmonary embolism, thrombocytopenia, acute hypoxic respiratory failure, multifocal pneumonia, GI bleed secondary to portal hypertensive gastropathy, hepatitis-C untreated, 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 Continued care for multiple medical problems. Please note discharge summary from [facility] dated 09/14/2024 is available in patient's medical record. 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 Anemia secondary to end-stage renal disease/Thrombocytopenia-No further labs due to [employer]. Hepatitis-C with liver cirrhosis/ portal hypertension Substance Use Disorder with active IVDU-Previously taking Methadone, no longer taking. Moderate protein calorie malnutrition-Started Ensure TID, Poor po appetite-Offer whatever he wants to eat. Intractable hiccups - s/p thorazine; started on gabapentin (baclofen or metoclopramide are alternatives if no improvement)-Stable, no hiccups on exam. Endocarditis of tricuspid valve-MSSA Bacteremia- He was initially treated with antibiotics. Cardiology discussed with Cardiac surgery team at [facility], patient is not a candidate for surgery; he would not survive any surgical procedure for the heart Antibiotics not likely curative given extent of disease. Patient intermittantly declining labs, imaging and other interventions. No further lab draws. Patient was previous receiving palliative care services during last [facility] admission. Due to encephalopathy, septic emboli to brain, patient did not have ability to make medical decisions. Antibiotics have been discontinued and he has been changed to comfort measures/palliative care per his HCP Mom Gorge and family. Plan to transition to [place] to be near family if possible. Case management involved. Continue medications for comfort and to alleviate symptoms. with Oxycontin BID and PRN Oxycodone for moderate pain. Dilaudid 2.5 mgs IV every 3 hours PRN. Valium for anxiety. Adding Scheduled Dilaudid 2 mg q4 hours given that he requires it every 2 hours regularly, hopefully this will reduce the dependence on PRN, a PICC line is request for easy access Ensure t.i.d. Hyponatremia Last reported sodium level 129, patient is not taking much p.o. No further labs. CODE Status:Comfort measures only DNR/DNI Discussed with father and mother, 1st HCP is not reachable Plan to discharge with Hospice LOC. Case management involved for disposition. Plan discussed with mother at the bedside Quality Stroke Does the patient have a stroke diagnosis?: No Reason for No Anti-thrombotic by Day Two: Contraindicated (low platelet count ) VTE Prior VTE?: No VTE Risk Level:: Medical - moderate - high VTE Device Contraindication: N/A - Device Ordered VTE Drug Contraindication: N/A - Med Ordered
--- NOTE | 2024-10-19 15:03 | MHC.CM.PN ---
Addendum entered by Annika Hooper 10/19/24 15:32: Earliest G[facility] Hospice Consult can be done is tomorrow;Per Hospice, they will communicate directly with MD. Original Note: Per MD's request, has asked [facility] for a [facility] Hospice Consult as soon as possible.
--- NOTE | 2024-10-19 16:53 | PC.NURSE ---
This RN spoke with IR GENERATION ENGINEER Tereso Tavarez who placed patients PICC line on 10/19/24. Per GENERATION ENGINEER PICC line was placed in the R Basilic vein; 42cm long and terminates in the cavoatrial junction. PICC line is ready for use per IR GENERATION ENGINEER
[2024-10-19] MEDS: HYDROmorphone HCl/NS 10 MG/50 ML PIGGYBACK 2.5 MG IV (17:22)
--- NOTE | 2024-10-19 20:44 | PC.NURSE ---
2043 Patient's mom at bedside reports patient appears restless, uncomfortable, moaning, increase RR. Dilaudid drip increased to 1.4mg/hr and mom would like the more Dilaudid given for relieve of pain-like symptoms. RR 22, RR slightly labored but regular. 2.5 mg Dilaudid IV provided as ordered and will continue to titrate Dilaudid drip for comfort. Family members at bedside, including patient's mother verbalizing there goal is have patient be comfortable and respect patient's wishes made in being POISER BALANCE. Emotional support provided to family and patient.
--- NOTE | 2024-10-19 22:08 | HE.PHANOTE ---
RE REFRIGERATOR ASSEMBLER PUMP RN called regarding patients REFRIGERATOR ASSEMBLER PUMP. Order states the max rate should be 4 mg/hr, however our REFRIGERATOR ASSEMBLER pumps max out at 1.9 mg/hr. In this situation, pharmacy would typically add a second order and have the patient receive medication from two REFRIGERATOR ASSEMBLER pumps. Reached out to provider regarding the situation. Spoke with Dr Navarro, at this time the provider would like the RN to utilize the patients hydromorphone 2.5 mg IVP PRN order as bolus'. Provider wants the patient to stay with one drip at this time. Provider was made aware max rate for the drip is 1.9 mg/hr at this time due to pump restrictions. Provider was also made aware the current hydromorphone drip does not include bolus' itself, it is currently in as a comfort care drip with a basal rate. Made RN aware of the situation.
[2024-10-20] VITALS (7 sets, daily range): RESP 20–28; TEMP 37.2
[2024-10-20] MEDS: 0.9 % Sodium Chloride Flush 3 ML SYRINGE IVFLUSH ×2 (00:20→08:15)
[2024-10-20] MEDS: HYDROmorphone HCl/NS 10 MG/50 ML PIGGYBACK 9.5 MG IV ×2 (00:46→06:15)
--- NOTE | 2024-10-20 01:51 | PC.NURSE ---
[address] Navarro regarding plan of care of patient. Dilaudid drip running at 1.9mg/hr with prn Dilaudid available for comfort. Pt also to receive prn Valium and Haldol as ordered and when necessary to provide supportive care to alleviate suffering. Restless, moaning are reduced after receiving medications available. Family at bedside and agree with plan of care at this time. Patient's mother at bedside and actively involved with making decisions regarding her sons wishes to be comfort measures only. Patient's mother assisting with providing hygiene, skin care, oral care and repositioning patient as tolerated by patient. Patient is being observed hourly for signs of distress. Interventions provided thus far such as, medication, repositioning, pillows, dimming lights, have provided patient with comfort and decrease in pain and suffering.
[2024-10-20] MEDS: diazePAM 10 MG/2 ML CARTRIDGE IVPUSH ×3 (02:40→11:06)
--- NOTE | 2024-10-20 07:59 | PC.NURSE ---
0600. Pt repositioned with family. Pt incontinent of small soft brown BM, barrier cream applied and foam dressing clean dry and intact. Pt with condom cath, voiding small amount of urine for shift under 50cc present in bag. Pt bladder scanned during the night x2 with PVR amounts of 325 respectively. Pt does not appear to be having bladder pain and family is requesting to hold straight cath or green cath placement at this time. Pt continues to moan with turns and pain appears to be localized to left hip and leg. Pillows placed for comfort and to maintain skin integrity. RR continues to be regular and patient appears to be resting comfortably as body appears relaxed with Dilaudid ASSEMBLY RIVETER and PRN Valium and Haldol being provided as ordered.
[2024-10-20] MEDS: fentaNYL citrate/NS 1,000 MCG/100 ML PLAST..BAG 2.5 MCG IVCONT (10:22)
--- NOTE | 2024-10-20 10:48 | P.PNIM_ITS ---
Subjective Subjective Date of Service: 10/20/24 Interval History: Patient with persistent pain and uncomfortable despite dilaudid drip at 2 mg an hour and PRN 2.5 every 2 hours, Infusin pump is not able to accomodate higher dose Physical Exam 2 Vital Signs: Vital Signs: Last Vital Signs Temp 98.9 F 10/20/24 00:36 Pulse 122 H 10/19/24 15:03 Resp 28 H 10/20/24 10:22 BP 117/59 L 10/18/24 07:26 Pulse Ox 98 10/19/24 15:03 O2 Del Method Room Air 10/19/24 15:03 BMI result Body Mass Index 18.9 Const: Other: Was sleeping comfortably when I saw him this morning Objective Data Active Medications Calcium Carbonate (Calcium Carbonate 750 Mg Tab.Chew) 750 mg PO Q4H PRN PRN Reason: Heartburn Cyclobenzaprine HCl (Cyclobenzaprine Hcl 10 Mg Tablet) 10 mg PO BID PRN PRN Reason: Muscle Spasm Last Admin: 10/15/24 22:40 Dose: 10 mg Documented By: ANITA Diazepam (Diazepam 10 Mg/2 Ml Cartridge) 10 mg IVPUSH Q4H PRN PRN Reason: Anxiety Last Admin: 10/20/24 06:47 Dose: 10 mg Documented By: KHOA Gabapentin (Gabapentin 100 Mg Capsule) 100 mg PO TID [facility] Last Admin: 10/20/24 07:31 Dose: Not Given Documented By: GINA Non-Admin Reason: unable to swallow Haloperidol Lactate (Haloperidol Lactate 5 Mg/Ml Vial) 2 mg IVPUSH Q4H PRN PRN Reason: Delirium Last Admin: 10/20/24 08:15 Dose: 2 mg Documented By: GINA Hydromorphone HCl (Hydromorphone Hcl 1 Mg/Ml Syringe) 2.5 mg IVPUSH Q2H PRN; Protocol PRN Reason: Pain, Severe (Pain Scale 7-10) Last Admin: 10/20/24 08:14 Dose: 2.5 mg Documented By: GINA Fentanyl (Sublimaze/Ns) 1,000 mcg in 100 mls @ 0 mls/hr IVCONT .Q0M [facility]; Protocol Last Admin: 10/20/24 10:22 Dose: 25 mcg/hr, 2.5 mls/hr Documented By: GINA Magnesium Hydroxide (Milk Of Magnesia 30 Ml Oral.Susp) 30 ml PO DAILY PRN PRN Reason: Constipation Melatonin (Melatonin 3 Mg Tablet) 6 mg PO BEDTIME PRN PRN Reason: Insomnia Naloxone HCl (Naloxone Hcl 0.4 Mg/Ml Vial) 0.2 mg IVPUSH Q2M PRN PRN Reason: Excessive sedation or RR < 8 Naproxen (Naproxen 500 Mg Tablet) 500 mg PO Q12H PRN PRN Reason: Fever >100.4 Last Admin: 10/19/24 01:43 Dose: 500 mg Documented By: TOSHIA Comments: approved early admin Ondansetron HCl (Ondansetron Hcl 4 Mg/2 Ml Vial) 4 mg IVPUSH Q8H PRN PRN Reason: Nausea and Vomiting Ondansetron HCl (Ondansetron Odt 4 Mg Tab.Rapdis) 4 mg TRANSLINGU Q8H PRN PRN Reason: Nausea and Vomiting Scopolamine (Scopolamine 1.5 Mg Patch.Td.3) 1.5 mg TRANSDERMA Q72H [facility] Last Admin: 10/19/24 12:26 Dose: 1.5 mg Documented By: TREVOR Sodium Chloride (0.9 % Sodium Chloride Flush 3 Ml Syringe) 3 ml IVFLUSH QSHIFT [facility] Last Admin: 10/20/24 08:15 Dose: 3 ml Documented By: GNIA Labs 10/13/24 11:30 10/13/24 11:30 Assessment and Plan (1) Endocarditis: Status: Acute (2) Anemia: Status: Acute Plan This is an unfortunate 29-year-old male with significant PMH including recent 2 month hospitalization at [facility] with discharge 09/14/2024 diagnosed with sepsis, pyogenic arthritis of left hip, hyponatremia, tachycardia, left hip joint effusion, bilateral cavitary pulmonary embolism, thrombocytopenia, acute hypoxic respiratory failure, multifocal pneumonia, GI bleed secondary to portal hypertensive gastropathy, hepatitis-C untreated, 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 Continued care for multiple medical problems. Please note discharge summary from [facility] dated 09/14/2024 is available in patient's medical record. 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 Anemia secondary to end-stage renal disease/Thrombocytopenia-No further labs due to DIRECTOR NURSING SERVICE. Hepatitis-C with liver cirrhosis/ portal hypertension Substance Use Disorder with active IVDU-Previously taking Methadone, no longer taking. Moderate protein calorie malnutrition-Started Ensure TID, Poor po appetite-Offer whatever he wants to eat. Intractable hiccups - s/p thorazine; started on gabapentin (baclofen or metoclopramide are alternatives if no improvement)-Stable, no hiccups on exam. Endocarditis of tricuspid valve-MSSA Bacteremia- He was initially treated with antibiotics. Cardiology discussed with Cardiac surgery team at [facility], patient is not a candidate for surgery; he would not survive any surgical procedure for the heart Antibiotics not likely curative given extent of disease. Patient intermittantly declining labs, imaging and other interventions. No further lab draws. Patient was previous receiving palliative care services during last [facility] admission. Due to encephalopathy, septic emboli to brain, patient did not have ability to make medical decisions. Antibiotics have been discontinued and he has been changed to comfort measures/palliative care per his HCP Mom Gorge and family. Plan to transition to [place] to be near family if possible. Case management involved. Continue medications for comfort and to alleviate symptoms. Because of peristent pain, Dilaudid was started by PCR and max at 2 mg/hr , in addition to 2.5 mg Q2 hours as needed and yet cointinues to have pain and bein uncomfortable, Will change to Fentanyl drip Ensure t.i.d. CODE Status:Comfort measures only DNR/DNI Plan to discharge with Hospice LOC. Case management involved for disposition. Plan discussed with mother at the bedside Transition to [facility] Quality Stroke Does the patient have a stroke diagnosis?: No Reason for No Anti-thrombotic by Day Two: Contraindicated (low platelet count ) VTE Prior VTE?: No VTE Risk Level:: Medical - moderate - high VTE Device Contraindication: N/A - Device Ordered VTE Drug Contraindication: N/A - Med Ordered
--- NOTE | 2024-10-20 12:32 | MHC.CM.PN ---
Per hospice, patient will be admitted GIP. New acct number [id number]. and RN aware.
--- NOTE | 2024-10-20 12:36 | PC.NURSE ---
Patient GIP hospice admission number : [id number] per MD Naqvi patient is discharged, continuous fentanyl gtt still running as ordered.
--- NOTE | 2024-10-20 12:37 | PM.DS ---
DS: Providers Provider Date of Service: 10/20/24 Date of admission: 10/11/24 19:10 Date of discharge: 10/20/24 Primary care physician: Unknown Physician Consults: 10/11/24 19:15 Consult to Psychiatry Routine Consulting Provider: [facility] Psych Covering Reason for consultation: SI on section 12 10/11/24 19:17 Consult to Nephrology Routine Consulting Provider: [facility] Reason for consultation: ESRD on dilaysis, ? infected line Has provider been notified: No 10/11/24 20:57 Consult to Cardiology Routine Consulting Provider: [facility] Special[facility] Reason for consultation: Tricuspid valve endocarditis, tachycardia, pericardial effusion 10/11/24 20:58 Consult to Infectious Diseases Routine Consulting Provider: [facility] Reason for consultation: Endocarditis tricuspid valve, sepsis, pneumonia, septic PE and L hip hx 10/11/24 21:57 Addiction Medicine Provider Routine Consulting Provider: Addiction Covering Reason for consultation: Substance use D/O with endocarditis, sepsis Has provider been notified: No 10/12/24 12:51 Consult to Wound Care Routine Reason for consultation: redness to buttoks DS: Diagnosis Discharge Diagnosis (1) Endocarditis: Status: Acute (2) Anemia: Status: Acute DS: Summary Hospital Course Hospital Course: Attending physician on admission: Tommy Jensen Chief Complaint: sepsis Patient is a 29-year-old male with significant past medical history to include recent hospitalization at [facility] with discharge 09/14/2024 after 2 months of hospital stay diagnosed with sepsis, pyogenic arthritis of left hip, hyponatremia, tachycardia, left hip joint effusion, bilateral cavitary pulmonary embolism, thrombocytopenia, acute hypoxic respiratory failure, multifocal pneumonia, GI bleed secondary to portal hypertensive gastropathy, 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 On arrival to the emergency department patient was denying suicidal ideations. Patient did not provide any medical history so records from [facility] were obtained regarding recent admission from June of 2024 through 09/14/2024 for the above multiple medical problems. Patient placed on section 12 with continuous observation. Patient presented covered in dried feces and dirt. PermCath in right upper chest is covered with a soiled dressing. Bedside echo was being performed so this aligner typewriter was unable to look at the insertion site. Staff were attempting to get blood cultures but this has been very difficult due to patient's poor vascular access. Patient does have 1 IV in the left hand. Patient was started on vanco and ceftriaxone for antibiotics in the emergency department. Patient is also on lactated Ringer's 100 mL/hour after receiving fluid resuscitation per sepsis protocol. Bedside echo done by ED provider notes severe tricuspid valve regurgitation with a tricuspid valve vegetation any moderate pericardial effusion. There is also dilation of the right ventricle. There does not appear to be signs of tamponade. The liver is grossly enlarged. Patient would only provide for HPI that [facility] called 911 and had him transported here to [facility]. Again patient denies suicidal ideations. Patient states he is no longer able to ambulate and has absolutely no strength. Patient was dealing with septic left hip joint with osteomyelitis and underwent aspiration of effusion while at [facility] this past admission. Patient refused any surgical intervention at that time. Patient states he goes to dialysis maybe once a week but reported to the ED provider that he goes to dialysis on Wednesdays and Fridays. Patient can not recall when he last had dialysis. Sodium on admission 126, potassium 4.0, CO2 13, anion gap 16, creatinine 1.24, creatinine clearance 85.8 with a GFR greater than 60. Patient does make urine and is not anuric or oliguric. AST 38, ALT 7 alk-phos 102. Total bilirubin 0.9. Patient does not have leukocytosis but is anemic with an H and H of 7.6 and 23.5. Patient's platelets are 62,000. Patient has a evidence left shift with bandemia 18. This case was reviewed with hospitalist attending Dr. Jensen to ensure transfers not indicated based on patient's level of care. Patient is appropriate for admission at this time based on review. Patient is currently hemodynamically stable mildly encephalopathic and ED provider will attempt peripheral access for blood cu Hospital courses: He was intially admitted and started on IV antibiotics but was deemed unlikely to recover in light of severe spsisis, TV endocarditis, metabolic encephalopathyh, moderate to severe protein Calory malnutrition, substance use d/o, underlying hepc, aoric root abscess and blown mitral that cannot be repaired by cardiac surgery and they along with cardiology recommend hospice care, septic embolic to brain, persistent bacteremia Following discussion with HCP, a decision was made to transition to comfort care and started on Dilaudid IV push with persistent pain and was changed with Dilaudid by DENTAL AIDE and still no pain control, and wass transitioned to [facility] hospice and is now on Fentanyl drip along with Haldol, Valium, PRN dilaudid in hope of better pain control and comfort. 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, Infected PermCath, toxic metabolic Encephalopath Hepatitis-C with liver cirrhosis/ portal hypertension Moderate protein calorie malnutrition Substance Use Disorder with active IVDU Septic emboli to brain Time Attestation Discharge Coordination Time (in mins): 45 Quality: Safe Use of Opioids Does Pt have an Active Cancer Diagnosis on the Problem List?: No Quality: Stroke Does the patient have a stroke diagnosis?: No Physical Exam Vital Signs: Vital Signs: Last Vital Signs Temp 98.9 F 10/20/24 00:36 Pulse 122 H 10/19/24 15:03 Resp 28 H 10/20/24 10:22 BP 117/59 L 10/18/24 07:26 Pulse Ox 98 10/19/24 15:03 O2 Del Method Room Air 10/19/24 15:03 BMI result Body Mass Index 18.9 Discharge Plan Discharge Anticipated Discharge Date/Time: 10/20/24 12:19 Patient Disposition: Hospice - Medical Facility Discharge Diagnosis: Severe Sepsis, Bacteremia, aortic root abscess, Severe Mitral regurgitation Referrals: [facility] [Other] - 1 Week Referral Note: HOSPICE Physician,Unknown J [Primary Care Provider, Medical] - 1 Week Discharge Medications: Discontinued cyclobenzaprine 10 mg tablet 10 mg PO BEDTIME PRN (Reason: Muscle Spasm) acetaminophen 325 mg tablet 325 mg PO Q8H PRN (Reason: Pain) gabapentin 300 mg capsule 300 mg PO BEDTIME PRN (Reason: Pain) methadone [Methadone Intensol] 10 mg/mL Concentrate 95 mg PO DAILY methadone [Methadone Intensol] 10 mg/mL Concentrate 95 mg PO BEDTIME Discharge Orders: Discharge Order (Routine); Ordered 10/20/24 Ordered By: Mekhi Naqvi Diet: Advance to usual diet Activity on Discharge: As tolerated Stand Alone Forms: Patient Portal Discharge page Print Language: Danish Care Plan Goals: Comfort measure only Health Concerns: Sepsis, Bacteremia, aortic root abscess, Severe Mitral regurgitation Plan of Treatment: Transition to Hospice [facility]IP Comfort measures only Fentanyl drip, dilaudid for pain,, Valijm and haldol for comfort Assessment: see above Discharge Date/Time: 10/20/24 12:39
--- NOTE | 2024-10-21 05:43 | PM.DDS ---
Discharge Sum: Prov Provider Primary care physician: Unknown Physician Consults: 10/11/24 19:15 Consult to Psychiatry Routine Consulting Provider: 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 infected line Has provider been notified: No 10/11/24 20:57 Consult to Cardiology Routine Consulting Provider: [facility] Reason for consultation: Tricuspid valve endocarditis, tachycardia, pericardial effusion 10/11/24 20:58 Consult to Infectious Diseases Routine Consulting Provider: [facility] Infect[facility] Reason for consultation: Endocarditis tricuspid valve, sepsis, pneumonia, septic PE and L hip hx 10/11/24 21:57 Addiction Medicine Provider Routine Consulting Provider: Addiction Covering Reason for consultation: Substance use D/O with endocarditis, sepsis Has provider been notified: No 10/12/24 12:51 Consult to Wound Care Routine Reason for consultation: redness to buttoks Discharge Sum: Diag Contributing Factors (1) Endocarditis: (2) Anemia: Discharge Sum: Summary Date and Time Date of admission: 10/11/24 19:10 Date of : 10/21/24 Time of : 05:30 Summary Details: 29-year-old male with significant past medical history to include recent hospitalization at [facility] with discharge 09/14/2024 after 2 months of hospital stay diagnosed with sepsis, pyogenic arthritis of left hip, hyponatremia, tachycardia, left hip joint effusion, bilateral cavitary pulmonary embolism, thrombocytopenia, acute hypoxic respiratory failure, multifocal pneumonia, GI bleed secondary to portal hypertensive gastropathy, 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 On arrival to the emergency department patient was denying suicidal ideations. Patient did not provide any medical history so records from [facility] were obtained regarding recent admission from June of 2024 through 09/14/2024 for the above multiple medical problems. Patient placed on section 12 with continuous observation. Patient presented covered in dried feces and dirt. PermCath in right upper chest is covered with a soiled dressing. Bedside echo was being performed so this advertising copy writer was unable to look at the insertion site. Staff were attempting to get blood cultures but this has been very difficult due to patient's poor vascular access. Patient does have 1 IV in the left hand. Patient was started on vanco and ceftriaxone for antibiotics in the emergency department. Patient is also on lactated Ringer's 100 mL/hour after receiving fluid resuscitation per sepsis protocol. Bedside echo done by ED provider notes severe tricuspid valve regurgitation with a tricuspid valve vegetation any moderate pericardial effusion. There is also dilation of the right ventricle. There does not appear to be signs of tamponade. The liver is grossly enlarged. Patient would only provide for HPI that [facility] called 911 and had him transported here to [facility]. Again patient denies suicidal ideations. Patient states he is no longer able to ambulate and has absolutely no strength. Patient was dealing with septic left hip joint with osteomyelitis and underwent aspiration of effusion while at [facility] this past admission. Patient refused any surgical intervention at that time. Patient states he goes to dialysis maybe once a week but reported to the ED provider that he goes to dialysis on Wednesdays and Fridays. Patient can not recall when he last had dialysis. Sodium on admission 126, potassium 4.0, CO2 13, anion gap 16, creatinine 1.24, creatinine clearance 85.8 with a GFR greater than 60. Patient does make urine and is not anuric or oliguric. AST 38, ALT 7 alk-phos 102. Total bilirubin 0.9. Patient does not have leukocytosis but is anemic with an H and H of 7.6 and 23.5. Patient's platelets are 62,000. Patient has a evidence left shift with bandemia 18. This case was reviewed with hospitalist attending Dr. Jensen to ensure transfers not indicated based on patient's level of care. Patient is appropriate for admission at this time based on review. 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 On 10/21/2024 bike shop manager RN mentioned patient appeared to have passed. I went and examined the patient. Patient not responding, no breathing. Pupils are fixed and dilated. Patient pronounced at 05:30 on 10/21/2024. Patient's family at bedside. Additional Data Attending physician: Mekhi Naqvi MD
== END 2024-10-20 12:39 | disposition hospice, inpatient (51) | DRG 721 ==
LOC: HO.ED 19:04 → HO.EDOVER 19:44 → HO.IMC 21:37
PROVIDERS: Nurse Practitioner Family; Physician Assistant Medical; Admitting Provider Student in an Organized Health Care Education/Training Program; Emergency Provider Internal Medicine; Visit Provider Internal Medicine
DX: T80.211A Bloodstream infection due to central venous catheter, initial encounter (principal); I26.90 Septic pulmonary embolism without acute cor pulmonale; I33.0 Acute and subacute infective endocarditis; G92.8 Other toxic encephalopathy; A41.9 Sepsis, unspecified organism; I66.9 Occlusion and stenosis of unspecified cerebral artery; N17.9 Acute kidney failure, unspecified; E44.0 Moderate protein-calorie malnutrition; K76.6 Portal hypertension; N18.6 End stage renal disease; J18.9 Pneumonia, unspecified organism; E87.1 Hypo-osmolality and hyponatremia; D63.1 Anemia in chronic kidney disease; R45.851 Suicidal ideations; B95.61 Methicillin susceptible Staphylococcus aureus infection as the cause of diseases classified elsewhere; D69.59 Other secondary thrombocytopenia; K74.69 Other cirrhosis of liver; K31.89 Other diseases of stomach and duodenum; Z51.5 Encounter for palliative care; M86.9 Osteomyelitis, unspecified; M08.052 Unspecified juvenile rheumatoid arthritis, left hip; F17.210 Nicotine dependence, cigarettes, uncomplicated; Z71.6 Tobacco abuse counseling; F11.20 Opioid dependence, uncomplicated; N39.0 Urinary tract infection, site not specified; I07.1 Rheumatic tricuspid insufficiency; B19.20 Unspecified viral hepatitis C without hepatic coma; Z99.2 Dependence on renal dialysis; Z91.148 Patient's other noncompliance with medication regimen for other reason; Z91.158 Patient's noncompliance with renal dialysis for other reason; Z68.1 Body mass index [BMI] 19.9 or less, adult
CPT/HCPCS: 36415; 36573; 36589; 70450; 71045; 71275; 74177; 80048; 80053; 80143; 80179; 80202; 80307; 81001; 82140; 82607; 82746; 82803; 83010; 83540; 83605; 83615; 83735; 83930; 83935; 84300; 84439; 84443; 85007; 85025; 85027; 85652; 86140; 86850; 86900; 86901; 86923; 87040; 87071; 87077; 87086; 87186; 87205; 87522; 93005; 93306; 99285; C1751; J0131; J0692; J0696; J1171; J1630; J2003; J2060; J2270; J2405; J2470; J3010; J3230; J3360; J3374; J3475; J7120; P9016; P9047; Q9957; Q9967

== ENCOUNTER → 2024-10-11 17:40 | Outpatient (BNV) | payer SELFPAY | PROVIDERS: Visit Provider Radiology Diagnostic Radiology | DX: R53.1 Weakness (principal) | CPT/HCPCS: 71045 ==

== ENCOUNTER 2024-10-11 19:10 | Outpatient (BNV) | payer OTHER, SELFPAY | END 2024-10-12 22:37 | PROVIDERS: Admitting Provider Student in an Organized Health Care Education/Training Program; Emergency Provider Internal Medicine; Visit Provider Radiology Diagnostic Radiology | DX: M00.852 Arthritis due to other bacteria, left hip (principal); M86.152 Other acute osteomyelitis, left femur; S73.012A Posterior subluxation of left hip, initial encounter; D73.5 Infarction of spleen; R16.2 Hepatomegaly with splenomegaly, not elsewhere classified; R18.8 Other ascites; I76 Septic arterial embolism; J90 Pleural effusion, not elsewhere classified; I51.7 Cardiomegaly; I31.39 Other pericardial effusion (noninflammatory); R90.82 White matter disease, unspecified | CPT/HCPCS: 36589; 70450; 71275; 74177 ==

== ENCOUNTER 2024-10-11 19:10 | Outpatient (BNV) | payer OTHER, SELFPAY | END 2024-10-18 14:00 | PROVIDERS: Admitting Provider Student in an Organized Health Care Education/Training Program; Emergency Provider Internal Medicine | DX: Z45.2 Encounter for adjustment and management of vascular access device (principal) | CPT/HCPCS: 36573 ==

== ENCOUNTER 2024-10-11 19:10 | Outpatient (BNV) | payer OTHER, SELFPAY | END 2024-10-12 07:00 | PROVIDERS: Admitting Provider Student in an Organized Health Care Education/Training Program; Emergency Provider Internal Medicine; Visit Provider Internal Medicine Cardiovascular Disease | DX: I36.1 Nonrheumatic tricuspid (valve) insufficiency (principal); I35.8 Other nonrheumatic aortic valve disorders; I31.39 Other pericardial effusion (noninflammatory) | CPT/HCPCS: 93306 ==

== ENCOUNTER → 2024-10-11 19:10 | Outpatient (BNV) | payer OTHER, SELFPAY | PROVIDERS: Admitting Provider Student in an Organized Health Care Education/Training Program; Emergency Provider Internal Medicine; Visit Provider Nurse Practitioner Psychiatric/Mental Health | DX: F32.2 Major depressive disorder, single episode, severe without psychotic features (principal); R45.851 Suicidal ideations | CPT/HCPCS: 99232 ==

== ENCOUNTER → 2024-10-11 19:10 | Outpatient (BNV) | payer OTHER, SELFPAY | PROVIDERS: Admitting Provider Student in an Organized Health Care Education/Training Program; Emergency Provider Internal Medicine; Visit Provider Nurse Practitioner Family | DX: A41.89 Other specified sepsis (principal); K74.60 Unspecified cirrhosis of liver; D69.6 Thrombocytopenia, unspecified; I38 Endocarditis, valve unspecified; I36.8 Other nonrheumatic tricuspid valve disorders | CPT/HCPCS: 99223; 99232; 99233; 99497; 99499 ==

== ENCOUNTER → 2024-10-11 19:10 | Outpatient (BNV) | payer OTHER, SELFPAY | PROVIDERS: Admitting Provider Student in an Organized Health Care Education/Training Program; Emergency Provider Internal Medicine; Visit Provider Internal Medicine Cardiovascular Disease | DX: F19.90 Other psychoactive substance use, unspecified, uncomplicated (principal); I33.0 Acute and subacute infective endocarditis; I07.1 Rheumatic tricuspid insufficiency; I35.8 Other nonrheumatic aortic valve disorders; I76 Septic arterial embolism; I66.9 Occlusion and stenosis of unspecified cerebral artery | CPT/HCPCS: 93010; 99233 ==

== ENCOUNTER 2024-10-20 13:16 | Inpatient (IN) | payer OTHER, SELFPAY ==
--- NOTE | 2024-10-20 12:45 | P.HPHOSP_ITS ---
History of Present Illness Date of Service: 10/20/24 Chief Complaint: Transition to [facility] hospice Chief Complaint: sepsis Patient is a 29-year-old male with significant past medical history to include recent hospitalization at [facility] with discharge 09/14/2024 after 2 months of hospital stay diagnosed with sepsis, pyogenic arthritis of left hip, hyponatremia, tachycardia, left hip joint effusion, bilateral cavitary pulmonary embolism, thrombocytopenia, acute hypoxic respiratory failure, multifocal pneumonia, GI bleed secondary to portal hypertensive gastropathy, 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 On arrival to the emergency department patient was denying suicidal ideations. Patient did not provide any medical history so records from [facility] were obtained regarding recent admission from June of 2024 through 09/14/2024 for the above multiple medical problems. Patient placed on section 12 with continuous observation. Patient presented covered in dried feces and dirt. PermCath in right upper chest is covered with a soiled dressing. Bedside echo was being performed so this scientific writer was unable to look at the insertion site. Staff were attempting to get blood cultures but this has been very difficult due to patient's poor vascular access. Patient does have 1 IV in the left hand. Patient was started on vanco and ceftriaxone for antibiotics in the emergency department. Patient is also on lactated Ringer's 100 mL/hour after receiving fluid resuscitation per sepsis protocol. Bedside echo done by ED provider notes severe tricuspid valve regurgitation with a tricuspid valve vegetation any moderate pericardial effusion. There is also dilation of the right ventricle. There does not appear to be signs of tamponade. The liver is grossly enlarged. Patient would only provide for HPI that [facility] called 911 and had him transported here to [facility]. Again patient denies suicidal ideations. Patient states he is no longer able to ambulate and has absolutely no strength. Patient was dealing with septic left hip joint with osteomyelitis and underwent aspiration of effusion while at [facility] this past admission. Patient refused any surgical intervention at that time. Patient states he goes to dialysis maybe once a week but reported to the ED provider that he goes to dialysis on Wednesdays and Fridays. Patient can not recall when he last had dialysis. Sodium on admission 126, potassium 4.0, CO2 13, anion gap 16, creatinine 1.24, creatinine clearance 85.8 with a GFR greater than 60. Patient does make urine and is not anuric or oliguric. AST 38, ALT 7 alk-phos 102. Total bilirubin 0.9. Patient does not have leukocytosis but is anemic with an H and H of 7.6 and 23.5. Patient's platelets are 62,000. Patient has a evidence left shift with bandemia 18. This case was reviewed with hospitalist attending Dr. Jensen to ensure transfers not indicated based on patient's level of care. Patient is appropriate for admission at this time based on review. 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, Infected PermCath, toxic metabolic Encephalopath Hepatitis-C with liver cirrhosis/ portal hypertension Moderate protein calorie malnutrition Substance Use Disorder with active IVDU Septic emboli to brain Review of Systems Review of Systems: Yes unobtainable due to endotracheal tube [facility] Medical History Abscess of male pelvis Portal hypertension Cirrhosis of liver Splenomegaly TIMMY (acute kidney injury) Hyperkalemia GI bleed Thrombocytopenia History of intravenous drug abuse Tachycardia Hyponatremia Juvenile rheumatoid arthritis Hepatitis C antibody positive Pneumonia MSSA (methicillin susceptible Staphylococcus aureus) Methadone maintenance therapy patient Substance use disorder Effusion, left hip Septic pulmonary embolism Severe tricuspid regurgitation Tricuspid valve vegetation Social History Household Members: None and Unknown / Unable to assess Housing: Unknown / Unable to assess Unable to assess alcohol history related to: Refusing to respond Comment: pt bedfast Patient Tobacco Use Status: Current someday Tobacco user Tobacco use type: Cigarette e-Cigarette/Vaping Use: Currently Using Second Hand Smoke Exposure: No service: No Meds Allergies Allergy/AdvReac Type Severity Reaction Status Date / Time amoxicillin Allergy Unknown Verified 10/11/24 14:54 infliximab (From Remicade) Allergy Hives Verified 10/11/24 14:54 methotrexate Allergy Unknown Verified 10/11/24 14:54 Penicillins (PCN) Allergy Unknown Verified 10/11/24 14:54 Physical Exam Const: Other: Appear comfortable Assessment and Plan (1) Aortic valve endocarditis: Status: Acute Plan Hospital courses: He was intially admitted and started on IV antibiotics but was deemed unlikely to recover in light of severe spsisis, TV endocarditis, metabolic encephalopathyh, moderate to severe protein Calory malnutrition, substance use d/o, underlying hepc, aoric root abscess and 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 Fentanyl drip, PRN dilaudid, Haldol and Valium as needed for comfort. Quality Stroke Does the patient have a stroke diagnosis?: No VTE Prior VTE?: No VTE Risk Level:: Medical - moderate - high VTE Device Contraindication: Treatment Not Indicated VTE Drug Contraindication: Treatment Not Indicated
[2024-10-20] MEDS: fentaNYL citrate/NS 1,000 MCG/100 ML PLAST..BAG 2.5 MCG IVCONT (13:29)
--- NOTE | 2024-10-20 13:32 | PC.NURSE ---
Addendum entered by Leila Dean RN 10/20/24 13:35: pt account changed @ 1315 over to [facility] hospice. fentanyl gtt started at 1022 today @ 25 mcg/hr continued. gtt increased per MAR once account switched over d/t increased RR >20 Original Note: pt account changed @ 1315 over to [facility] hospice. fentanyl gtt started at 1022 today @ 25 mcg/hr continued. gtt increased per MAR once account switched over.
[2024-10-20] MEDS: diazePAM 10 MG/2 ML CARTRIDGE IVPUSH ×2 (15:16→20:44)
[2024-10-20] MEDS: Atropine Sulfate 1 % Ophth Sol 2 ML BOTTLE 2 DROP SUBLINGUAL ×3 (15:16→22:23)
[2024-10-20] MEDS: Acetaminophen Supp 650 MG SUPP.RECT PR (15:49)
[2024-10-20 20:19] VITALS: RESP 30
[2024-10-20 21:20] VITALS: RESP 36
[2024-10-20 21:57] VITALS: RESP 30
[2024-10-20 22:34] VITALS: RESP 30
[2024-10-20 23:55] VITALS: RESP 42
[2024-10-20] MEDS: fentaNYL citrate/NS 1,000 MCG/100 ML PLAST..BAG 15 MCG IVCONT (23:55)
[2024-10-21 00:11] VITALS: RESP 42
--- NOTE | 2024-10-21 01:09 | PM.EVENT ---
Event Note Date of Service: 10/21/24 Event Note: Patient has had respiratory rates consistently in the 40s. Initially tried morphine 4 mg IV x1, however, fentanyl drip ran out for about 15 minutes therefore response is inaccurate. Fentanyl drip has been fixed. We will add morphine 1 mg IV q.1h. Case discussed with Dr. Navarro Time Spent With Patient Time: Total time managing care of this patient today ____ minutes.
[2024-10-21] MEDS: diazePAM 10 MG/2 ML CARTRIDGE IVPUSH ×2 (01:44→04:18)
[2024-10-21 01:57] VITALS: RESP 48
[2024-10-21] MEDS: Atropine Sulfate 1 % Ophth Sol 2 ML BOTTLE 2 DROP SUBLINGUAL (02:12)
--- NOTE | 2024-10-21 05:43 | P.DN_ITS ---
Discharge Sum: Prov Provider Primary care physician: Unknown Physician Consults: 10/11/24 19:15 Consult to Psychiatry Routine Consulting Provider: [facility] Psych Covering Reason for consultation: SI on section 12 10/11/24 19:17 Consult to Nephrology Routine Consulting Provider: [facility] Reason for consultation: ESRD on dilaysis, ? infected line Has provider been notified: No 10/11/24 20:57 Consult to Cardiology Routine Consulting Provider: [facility] Cardiovascular Specialists Reason for consultation: Tricuspid valve endocarditis, tachycardia, pericardial effusion 10/11/24 20:58 Consult to Infectious Diseases Routine Consulting Provider: [facility] Reason for consultation: Endocarditis tricuspid valve, sepsis, pneumonia, septic PE and L hip hx 10/11/24 21:57 Addiction Medicine Provider Routine Consulting Provider: Addiction Covering Reason for consultation: Substance use D/O with endocarditis, sepsis Has provider been notified: No 10/12/24 12:51 Consult to Wound Care Routine Reason for consultation: redness to buttoks Discharge Sum: Diag Contributing Factors (1) Endocarditis: (2) Anemia: Discharge Sum: Summary Date and Time Date of admission: 10/11/24 19:10 Date of : 10/21/24 Time of : 05:30 Summary Details: 29-year-old male with significant past medical history to include recent hospitalization at [facility] with discharge 09/14/2024 after 2 months of hospital stay diagnosed with sepsis, pyogenic arthritis of left hip, hyponatremia, tachycardia, left hip joint effusion, bilateral cavitary pulmonary embolism, thrombocytopenia, acute hypoxic respiratory failure, multifocal pneumonia, GI bleed secondary to portal hypertensive gastropathy, 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 On arrival to the emergency department patient was denying suicidal ideations. Patient did not provide any medical history so records from [facility] were obtained regarding recent admission from June of 2024 through 09/14/2024 for the above multiple medical problems. Patient placed on section 12 with continuous observation. Patient presented covered in dried feces and dirt. PermCath in right upper chest is covered with a soiled dressing. Bedside echo was being performed so this law writer was unable to look at the insertion site. Staff were attempting to get blood cultures but this has been very difficult due to patient's poor vascular access. Patient does have 1 IV in the left hand. Patient was started on vanco and ceftriaxone for antibiotics in the emergency department. Patient is also on lactated Ringer's 100 mL/hour after receiving fluid resuscitation per sepsis protocol. Bedside echo done by ED provider notes severe tricuspid valve regurgitation with a tricuspid valve vegetation any moderate pericardial effusion. There is also dilation of the right ventricle. There does not appear to be signs of tamponade. The liver is grossly enlarged. Patient would only provide for HPI that [facility] called 911 and had him transported here to [facility]. Again patient denies suicidal ideations. Patient states he is no longer able to ambulate and has absolutely no strength. Patient was dealing with septic left hip joint with osteomyelitis and underwent aspiration of effusion while at [facility] this past admission. Patient refused any surgical intervention at that time. Patient states he goes to dialysis maybe once a week but reported to the ED provider that he goes to dialysis on Wednesdays and Fridays. Patient can not recall when he last had dialysis. Sodium on admission 126, potassium 4.0, CO2 13, anion gap 16, creatinine 1.24, creatinine clearance 85.8 with a GFR greater than 60. Patient does make urine and is not anuric or oliguric. AST 38, ALT 7 alk-phos 102. Total bilirubin 0.9. Patient does not have leukocytosis but is anemic with an H and H of 7.6 and 23.5. Patient's platelets are 62,000. Patient has a evidence left shift with bandemia 18. This case was reviewed with hospitalist attending Dr. Jensen to ensure transfers not indicated based on patient's level of care. Patient is appropriate for admission at this time based on review. 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 On 10/21/2024 bleacher pulp RN mentioned patient appeared to have passed. I went and examined the patient. Patient not responding, no breathing. Pupils are fixed and dilated. Patient pronounced at 05:30 on 10/21/2024. Patient's family at bedside. Additional Data Attending physician: Mekhi Naqvi MD
[2024-10-21 06:15] VITALS: PULSE 0; RESP 0
--- NOTE | 2024-10-21 07:52 | PC.NURSE ---
at start of shift pt found with elevated RR and family at bedside. Plan explained to family and pt medicated with PRN meds as noted in MAY. Pt's HR was persistantly high with intercostal retracting. Pulse visible in neck. pt occasionally moaning and grimacing. MD made aware and additional meds ordered/given. Pt continued have distress. MD Devinini aware and down to see patient. further meds given also with minimal result. Pt started to present with more distress with tachypnea increasing to 50's and the bed actually shaking with his effort to breath. MD called back down to bedside further medications ordered. Pt maxed on fentanyl drip in addition to PRN meds. This RN gave IV Valium and Morphine to patient for continued distress. Family at bedside. Approx 5 -10 minutes later pt . MD notified and down to pronounce. Comfort and support offered to family, Mom was assisted in post mortem care and gathering mementos. Family brought home any belongings.
--- NOTE | 2024-10-21 08:48 | MHC.CM.PN ---
POST DC NOTE, D/T PT EXPIRING CM HAS NOTIFIED [facility] AND CANCELLED TRANSPORTATION FOR 10/22.
== END 2024-10-21 05:30 | disposition expired | DRG 951 ==
PROVIDERS: Admitting Provider Internal Medicine; Visit Provider Internal Medicine
DX: Z51.5 Encounter for palliative care (principal); N17.0 Acute kidney failure with tubular necrosis; A41.9 Sepsis, unspecified organism; I33.0 Acute and subacute infective endocarditis; G92.8 Other toxic encephalopathy; E44.0 Moderate protein-calorie malnutrition; I76 Septic arterial embolism; F11.20 Opioid dependence, uncomplicated; F19.90 Other psychoactive substance use, unspecified, uncomplicated; F17.210 Nicotine dependence, cigarettes, uncomplicated; Z71.6 Tobacco abuse counseling; K74.69 Other cirrhosis of liver
CPT/HCPCS: J1171; J1630; J2270; J3010; J3360

== ENCOUNTER → 2024-10-20 13:16 | Outpatient (BNV) | payer OTHER, SELFPAY | PROVIDERS: Admitting Provider Internal Medicine; Visit Provider Physician Assistant | DX: I38 Endocarditis, valve unspecified (principal); D64.9 Anemia, unspecified | CPT/HCPCS: 99239; 99499 ==